=== PATIENT | male | born 1925 | race African-American/Black ===

== ENCOUNTER 2016-07-23 02:21 | Inpatient (IN) | payer OTHER, MEDICARE ==
[~2016-07-23] VITALS: Ht 167.6 cm; Wt 74.8 kg
[~2016-07-23 02:21] MED LIST: CARVEDILOL6.25 M1 PO; CILOSTAZOL100 M1 PO; COZAAR25 M1 PO; FLOMAX0.4 M1 PO; FOLIC ACID1 M1 PO; LANTUS100 UNIT/1 SC; MECLIZINE HCL12.5 M1 PO; METOCLOPRAMIDE10 M2 PO; ONGLYZA5 M1 PO
--- NOTE | 2016-07-23 14:30 | Admission Core Measures ---
Acute Coronary Syndrome Inclusion Criteria ACS Diagnosis No Inpatient Core Measures LDL Reminder: If No, please order W/I first 24hr of stay Congestive Heart Failure Inclusion Criteria CHF Diagnosis No Cerebrovascular accident Inclusion Criteria CVA/TIA Diagnosis No Inpatient Core Measures Bedside Swallow Eval Reminder: If BSE failed, place ST order Antithrombotic Reminder: Order Antithrombotic Medication by end of day 2 Antithrombotic Reminder: Document Reason Antithrombotic Not ordered by end of day 2 AFIB/Flutter Reminder: If Present, add to problem list AFIB/Flutter Reminder: Order Anticoag Medication for pts with AFIB/Flutter Atherosclerosis Reminder: If Present, add to problem list LDL Reminder: If No, please order W/I first 24hr of stay PT Order Reminder: If No, please order Venous thromboembolism Inpatient Core Measures VTE Risk Factors: Age > 40, Surgery No Mech VTE prophylaxis d/t No contraindications No VTE Pharm Prophylaxis d/t No contraindications Inclusion Criteria - Per Current guidelines, there needs to be overlap - treatment for the first 5 days of Warfarin therapy. - Parenteral Anticoagulation (IV or SC) needs to be - given along with Warfarin therapy. VTE Diagnosis No VTE Type NONE VTE Confirmed by (Test) NONE Problem List As ranked by this Provider includes Assessment & Plan 1. S/P inguinal hernia repair HOME MEDS Home Med List Carvedilol 6.25 MG TABLET 1 TAB PO BID HEART/BP (Reported) Cilostazol 100 MG TABLET 1 TAB PO BID UNKNOWN (Reported) Folic Acid 1 MG TABLET 1 TAB PO DAILY SUPPLEMENT (Reported) Insulin-Lantus (Lantus) 100 UNIT/ML VIAL 20 UNITS SC DAILY DM (Reported) Losartan Potassium (Cozaar) 25 MG TABLET 1 TAB PO DAILY BP (Reported) Meclizine HCl 12.5 MG TABLET 1 TAB PO TID N/V/DIZZINESS (Reported) Metoclopramide HCl 10 MG TABLET 20 MG PO BID GI (Reported) Saxagliptin (Onglyza) 5 MG TABLET 1 TAB PO DAILY DM (Reported) Tamsulosin HCl (Flomax) 0.4 MG CAP.ER.24H 1 CAP PO DAILY (Reported)
--- NOTE | 2016-07-23 16:51 | PN- General Surgery ---
Subjective Subjective: Post Op Note s/p open repair of left inguinal hernia Patient has mild to moderate pain but tolerable. No further c/o. Denies n/v. Has not been OOB. Rinaldi catheter in place. Denies CP/SOB. Objective Vital Signs and I&Os BP: 155/90 HR: 90 O2: 99% 2L NC RR: 20 Afebrile Physical Exam: General: NAD, comfortable, A&Ox3 Chest: CTAB. RRR. Abdomen/Groin: soft, nondistended. Appropriately TTP. +Bowel sounds x4 quadrants. LLQ dressing c/d/i. left side of scrotum with kong drain in place and dressing saturating through with serosanguineous drainage. Rinaldi catheter in place. Ext: No calve swelling/TTP, neurovascularly intact bilateral lower extremities Current Medications: Current Medications Sig/Fatemeh Start time Last Medication Dose Route Stop Time Status Admin Acetaminophen 1,000 MG .STK-MED ONE 07/23 709 DC IV 07/23 710 Fentanyl Citrate 100 MCG .STK-MED ONE 07/23 709 DC IM 07/23 710 Fentanyl Citrate 100 MCG .STK-MED ONE 07/23 708 DC IM 07/23 709 Ketorolac 30 MG .STK-MED ONE 07/23 708 DC Tromethamine IM 07/23 709 Ondansetron HCl 4 MG .STK-MED ONE 07/23 709 DC IM 07/23 710 Assessment/Plan Assessment/Plan 89yo M POD#0 s/p open left inguinal hernia repair. AVSS, patient stable. - Pain control - I/O's - PRN zofran - IVF - Insulin sliding scale - Clear liquid diet tonight - DC rinaldi catheter now, DTV within 8 hrs. - sc heparin and ALPS for DVT PPx - OOB as desired with assist on first attempt - CBC, BEP in a.m. Core Measures/Miscellaneous Venous Thromboembolism VTE Risk Factors: Age > 40, Surgery VTE Contraindications: No Contraindications VTE Diagnosis: No VTE Type: NONE VTE Confirmed by (Test): NONE Beta Maciej Is Beta Maciej a Home Med? Yes Antibiotics Is Patient on Antibiotics? Yes If Yes: prophylaxis
[2016-07-23 18:19] VITALS: BP 150/98
[2016-07-23 21:34] VITALS: BP 150/98
--- NOTE | 2016-07-23 22:08 | NUR ---
1700: PATIENT ARRIVED TO FLOOR. DAUGHTER AT BEDSIDE. PATIENT RESTING COMFORTABLY. PAIN 7/10. MORPHINE 2 MG IV GIVEN WHICH NELSON PAIN DOWN TO 3/10. DRSNG DRAINING MODERATE BLOOD WHICH WAS ANITICAPATED PER SURGERY. DSNG REINFORCED WITH GAUZE. VSS 2200: PATIENT RESTING COMFORTABLY. PT TACHYCARDIC: HR:117. BP: 150/98, TEMP: 98.8. SCHEDULED COREG GIVEN. PATIENT STATES PAIN IS ONLY 3/10. KAILASH ESTEVES NOTIFIED OF HEARTRATE. WILL RECHECK IN ONE HOUR.
--- NOTE | 2016-07-23 22:49 | NUR ---
2249: HEARTRATE RECHECKED. PATIENT STILL TACHY WITH HEARTRATE OF 123 BPM. SURGICAL PA DANIELITO NOTIFIED. DANIELITO STATES HE WILL GIVE THE PATIENT A BOLUS OF 500 MLS OF NORMAL SALINE. DUE TO CHANGE OF SHIFT, REPORT WILL BE GIVEN TO THE NEXT NURSE COMING ON.
[2016-07-23 23:20] VITALS: BP 122/80
--- NOTE | 2016-07-24 01:35 | NUR ---
PT VOIDING IN URINAL; DARK RED URINE WITH FEW CLOTS; DEVIN ESTEVES AWARE, CAN BE FROM TRAMATIC ORTEGA INSERTION. WILL MONITOR
[2016-07-24 02:00] VITALS: BP 122/78
[2016-07-24 06:00] VITALS: BP 136/78
--- NOTE | 2016-07-24 08:01 | PN- General Surgery ---
See Addendum Subjective Subjective: Hematuria overnight, voiding small amounts at a time of bloody urine with clots. He is tolerating clears. No nausea. Some shortness of breath when standing for dressing change. Denies chest pains. Not passing flatus at this time. Objective Vital Signs and I&Os Vital Signs Date Time Temp Pulse Resp B/P Pulse O2 O2 Flow FiO2 Ox Delivery Rate 07/24 599 98.8 111 18 136/78 96 Nasal Cannula 07/24 0200 98.9 110 20 122/78 96 Nasal Cannula 07/24 0049 117 07/24 0000 Nasal 2.0L Cannula 07/23 2320 99.0 123 18 122/80 97 Room Air 07/23 2253 123 07/23 2200 Nasal 2.0L Cannula 07/23 2200 98 Nasal 2.0L Cannula 07/23 2140 117 150/98 07/23 2140 117 150/98 07/23 2134 98.8 117 18 150/98 96 Nasal 2.0L Cannula 07/23 1819 98.0 89 16 150/98 99 Nasal Cannula Intake & Output 07/24 0800 07/24 0000 07/23 1600 07/23 0800 07/23 0000 07/22 1600 Intake Total 600 875 Output Total 700 100 Balance -100 775 Intake, IV 600 450 Intake, Oral 425 Number 0 Bowel Movements Output, Urine 700 100 Patient 165 lb Weight Physical Exam: General - alert & oriented. comfortable. no acute distress. Lungs - decreased breath sounds b/l bases. clear Cardiac - s1s2. tachycardic 110s. Abdomen - softly distended. no bowel sounds appreciated. expected left groin tenderness. - voiding bloody urine with clots. scrotal dressing changed. kong in place. Extremities - warm bilaterally. calves nontender. Assessment/Plan Assessment/Plan This 89 year old male with multiple medical problems including htn, stage 3 ckd, dm, gerd, bph, vertigo, is POD#1 s/p open left inguinal hernia repair with mesh, with hematuria overnight s/p rinaldi removal, tachycardia, and dyspnea this morning tolerating clears. d/c iv fluids. consider advancing diet check cxr and ekg f/u labs hold hep sc for now given hematuria with clots called urology consult to assess hematuria with clots called hospitalist / Hailee for consults dressing changed will d/w Core Measures/Miscellaneous Venous Thromboembolism VTE Risk Factors: Age > 40, Surgery VTE Contraindications: No Contraindications VTE Diagnosis: No VTE Type: NONE VTE Confirmed by (Test): NONE Beta Maciej Is Beta Maciej a Home Med? Yes Antibiotics Is Patient on Antibiotics? Yes If Yes: prophylaxis
--- NOTE | 2016-07-24 08:01 | Cons- Medical ---
ZA NARAYANAN 07/24/16 0758: General Information and HPI Consulting Request Date of Consult: 07/24/16 Requested By: REGINALD US,OMID Whitt Reason for Consult: Hypoxia, tachycardia Source of Information: patient, family Exam Limitations: no limitations History of Present Illness: 89-year-old male with a past medical history of hypertension, GERD, insulin- dependent diabetes mellitus, peripheral vascular disease, CKD Stage III 2/2 diabetes?, BPH who was admitted to [facility] on 07/23/2016 for an elective open repair of the left inguinal hernia. Patient denies any chest pain/discomfort, but endorses "feeling winded". Admits to non-productive cough, but denies fever, chills, any history of sick contact, sore throat, nausea, vomitinig. He denies any swelling in his lower extremities. He works at [employer], and F/U with Dr. Stephen for high blood pressure. According to the patient's significant other, he recently underwent pre-op eval with his behavioral psychologist which included in a stress test which is reportedly normal. He also endorses a sour taste as well as orthopnea. Of note, patient is pretty much independent in his ADLs and IADLs. Travel history revealed that he last traveled from [place] back in August 2015. Vitals at the time of admission blood pressure 150/98, respiratory rate 16, pulse 89, afebrile saturating 99% on room air. Postoperatively patient was tachycardiac to the 1 teens and hypoxic and was placed on 2 L of oxygen via nasal cannula. Of note he also had episode of heamturia which is attributable to trauma from Buitrago catheter palcement. He continues to remain tachycardic and hypoxic and medicine consult was obtained to further evaluate his hypoxemia as well as tachycardia. Chest x-ray done this morning shows low lung volumes, by basilar linear opacities most suggestive of subsegmental atelectasis with blunting of the right costophrenic angle suggestive of scarring versus a tiny amount of pleural fluid. There is no evidence of focal consolidation. EKG reveals sinus tachycardia with HR: 112, ? LAD, non-speci\\fic ST-T changes in lateral leads. Labs froom this AM, pertinent for stabel H&H of 10.8/32.2, thrombocytopenia with platelet count of 108,000, and a normal WBC count of 6900. Serum chemistries pertinent for sodium of 141, potassium of 4.3, hypercholesteremia with a chloride level of 118, bicarbonate of 19, BUN 23 and a creatinine of 2.0. Serum magnesium is low to 1.4 and troponin is negative is less than 0.01. Allergies/Medications Allergies: Coded Allergies: No Known Allergies (07/19/16) Home Med List: Carvedilol 6.25 MG TABLET 1 TAB PO BID HEART/BP (Reported) Cilostazol 100 MG TABLET 1 TAB PO BID UNKNOWN (Reported) Folic Acid 1 MG TABLET 1 TAB PO DAILY SUPPLEMENT (Reported) Insulin-Lantus (Lantus) 100 UNIT/ML VIAL 20 UNITS SC DAILY DM (Reported) Losartan Potassium (Cozaar) 25 MG TABLET 1 TAB PO DAILY BP (Reported) Meclizine HCl 12.5 MG TABLET 1 TAB PO TID N/V/DIZZINESS (Reported) Metoclopramide HCl 10 MG TABLET 20 MG PO BID GI (Reported) Saxagliptin (Onglyza) 5 MG TABLET 1 TAB PO DAILY DM (Reported) Tamsulosin HCl (Flomax) 0.4 MG CAP.ER.24H 1 CAP PO DAILY (Reported) Current Medications: Current Medications Sig/Fatemeh Start time Last Medication Dose Route Stop Time Status Admin Benzocaine/Menthol 1 RHETT Q2-3 HRS NEEDED.. 07/24 0745 AC PO Carvedilol 6.25 MG BID 07/23 2200 AC 07/23 PO 2140 Cefazolin Sodium 1,000 MG IQ8 07/23 1600 DC 07/24 IV 07/24 0001 0023 Cilostazol 100 MG BID 07/23 2200 AC 07/23 PO 2142 Heparin Sodium 5,000 UNIT Q8 07/23 2200 DC 07/24 (Porcine) SC 0604 Hydromorphone HCl 2 MG .STK-MED ONE 07/23 1547 DC IM 07/23 1548 Hydromorphone HCl 2 MG .STK-MED ONE 07/23 1531 DC IM 07/23 1532 Insulin Aspart 1 UNITS .STK-MED ONE 07/23 1911 DC SC 07/23 1912 Insulin Human Regular 0 TIDAC/HS 07/23 1700 AC 07/23 SC 1918 Losartan Potassium 25 MG DAILY 07/24 1000 AC PO Meclizine HCl 12.5 MG TID 07/23 1600 AC 07/23 PO 2141 Metoclopramide HCl 20 MG BID 07/23 2200 AC 07/23 PO 2140 Morphine Sulfate 2 MG Q3P PRN 07/23 1730 AC 07/23 IV 1810 Oxycodone/ 1 TAB Q4P PRN 07/23 1730 AC 07/24 Acetaminophen PO 0638 Oxycodone/ 2 TAB Q4P PRN 07/23 1730 AC Acetaminophen PO Sodium Chloride 500 ML BOLUS ONE 07/23 2300 DC 07/23 IV 07/23 2359 2304 Sodium Chloride 1,000 ML Q13H 07/23 1730 DC 07/23 IV 1919 Tamsulosin HCl 0.4 MG DAILY 07/23 1445 AC 07/23 PO 2140 Review of Systems Review of Systems Constitutional: Denies: chills, fever, malaise, weakness. EENTM: Denies: visual changes. Cardiovascular: Reports: orthopena. Denies: chest pain, edema, palpitations, syncope. Respiratory: Reports: cough, orthopnea, short of breath. Denies: hemoptysis, sputum production, stridor, wheezing. GI: Reports: abdominal pain, constipation, distention. Denies: nausea, vomiting. Genitourinary: Reports: hematuria. Musculoskeletal: Reports: no symptoms. Neurological/Psychological: Denies: headache, numbness, tingling, tremors, unable to move lower ext, unable to move upper ext, weakness. 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 Home Who Do You Live With? significant other Primary Language: [place] Smoking Status: Never Smoked ETOH Use: denies use Illicit Drug Use: denies illicit drug use Functional Ability ADLs Independent: dressing, eating, toileting, bathing. Ambulation: independent IADLs Independent: shopping, housework, finances, food prep, telephone, transportation , medication admin. Exam & Diagnostic Data Last 24 Hrs of Vital Signs/I&O Vital Signs Date Time Temp Pulse Resp B/P Pulse O2 O2 Flow FiO2 Ox Delivery Rate 07/24 599 98.8 111 18 136/78 96 Nasal Cannula 07/24 0200 98.9 110 20 122/78 96 Nasal Cannula 07/24 0049 117 03/ 0000 Nasal 2.0L Cannula 07/23 2320 99.0 123 18 122/80 97 Room Air 07/23 2253 123 07/23 2200 Nasal 2.0L Cannula 07/23 2200 98 Nasal 2.0L Cannula 07/23 2140 117 150/98 07/23 2140 117 150/98 07/23 2134 98.8 117 18 150/98 96 Nasal 2.0L Cannula 07/23 1819 98.0 89 16 150/98 99 Nasal Cannula Intake & Output 07/24 1600 08 0800 03/ 0000 Intake Total 600 875 Output Total 700 100 Balance -100 775 Intake, IV 600 450 Intake, Oral 425 Number 0 Bowel Movements Output, Urine 700 100 Patient 165 lb Weight Physical Exam General Appearance: well developed/nourished, no apparent distress, alert, awake , lethargic Head: atraumatic, normal appearance Eyes: Bilateral: PERRL, EOMI. Ears, Nose, Throat: dry mucous membranes Neck: normal inspection, supple, JVD ~ 5 CM Respiratory: normal breath sounds, chest non-tender, no respiratory distress, quiet respiration, lungs clear, no crackles, rales, ronchi Cardiovascular: tachycardia, normal S1, S2, no murmers, rubs, gallops Gastrointestinal: soft, distention, tenderness, has hypoactive bowel sounds Extremities: normal inspection, no edema, no calf tenderness, chronic venous stasis changes Neurologic/Psych: no motor/sensory deficits, awake, alert, oriented x 3, normal mood/affect Cranial Nerves: normal speech, PERRL, hard of hearing Last 24 Hrs of Labs/Bret: Laboratory Tests 07/24/16 0640: Sodium Pending, Potassium Pending, Chloride Pending, Carbon Dioxide Pending, Anion Gap Pending, BUN Pending, Creatinine Pending, BUN/Creatinine Ratio Pending , Magnesium Pending, Troponin I Pending, CBC w Diff Pending, WBC Pending, RBC Pending, Hgb Pending, Hct Pending, MCV Pending, MCH Pending, RDW Pending, Plt Count Pending, MPV Pending, PUBS MCHC Pending Assessment/Plan Assessment/Plan 89-year-old male with a past medical history of hypertension, GERD, insulin- dependent diabetes mellitus, peripheral vascular disease, CKD Stage III 2/2 diabetes?, BPH who was admitted to [facility] on 07/23/2016 and underwent an elective open repair of the left inguinal hernia, currently postoperative day #1 is tachycardic and hypoxemic. Recommendations #Acute hypoxemic respiratory failure Differentials at this point include dehydration (highly likely, as patient seems very dry on physical exam) versus acute coronary syndrome (given he is diabetic, may not present with classic chest pain like symptoms, however, it may be unlikely given he reporterdly had a normal stress test) versus pulmonary embolism (highly unlikely) versus secondary to atelectasis given he recently underwent surgery and is in pain not being able to take deep breaths. Was encouraged incentive spirometry Motrin troponin and EKG With add-on for a BNP With hydrate him with IV fluids half-normal saline running at 75 MLS per hour. We'll consider obtaining records from his primary behavioral psychologist as far as echocardiogram and stress test # Sinus tachycardia Most likely 2/2 dehydration versus pulmonary embolism versus pain Will hydrate with IV fluids and follow-up Continue on carvedilol 6.25 BID PO milligrams twice a day Optimize pain control Hypertension Continue on Cozaar 25 mg daily, carvedilol 6.25 mg twice a day Insulin-dependent diabetes mellitus Fingersticks stable with FSG 179, 179, 165, 207 Continue on Novolin sliding scale for now GERD Would start him on Protonix CKD stage III Most likely secondary to type 2 diabetes Currently stable Hematuria Most likely secondary to trauma from Buitrago catheter placement Consider urology input BPH Continue on tamsulosin Plan of care discussed with Dr. Gibson Consult Acknowledgment - Thank you for your consult request. COOKIE US,SAUL 07/24/16 1623: Assessment/Plan Consult Acknowledgment - Thank you for your consult request. Attending Review Statement Attending Statement Attending MD Statement: examined this patient, discuss w/resident/PA/BOILING OFF WINDER, agreed w/resident/PA/BOILING OFF WINDER, reviewed EMR data (avail), discussed with Omid Kauffman MD Attending Assessment/Plan: Patient seen and examined. Plan of care discussed with the medical team and the patient. Available lab work and radiology test reports were reviewed. In summary this is a 89-year-old male with a past medical history of hypertension, GERD, insulin-dependent diabetes mellitus, peripheral vascular disease, CKD Stage III 2/2 diabetes?, BPH who was admitted to [facility] on 07/23/2016 for an elective open repair of the left inguinal hernia. Patient may found to be tachycardic and slightly short of breath in the postoperative period. No recent fevers have been noted. Patient currently not on oxygen but is persistently tachycardic in rate of 113-123. His exam shows slightly elevated JVD and a few crackles on the chest. No papilledema is noted., Magnesium 1.4 and chloride of 115. Chest x-ray did not show any acute bony edema. EKG shows sinus tachycardia. Assessment plan * Sinus tachycardia- first troponin is negative, other differential could include pulmonary embolism however this is too soon after postoperative. To develop pulmonary embolism. [place] should be ruled out for further troponins. Possible dehydration. Other differential could include pain. * Shorts of breath- patient currently not hypoxic on the exam shows slight elevation in JVD no clear pulmonary edema is noted on chest x-ray. * Left: Hernia repair * Chronic renal failure Plan * Check BNP level * The start IV fluids with D5W half normal saline * Continue Cozaar and carvedilol * Check 2 more troponin sets * Cardio consult has been requested by surgery with Dr. Stephen. Please inform Dr. Stephen. * Control pain adequately * I do not see any DVT prophylaxis. Given patient's Miriam he will benefit from pharmacological prophylaxis. * Recheck BEP tomorrow
--- NOTE | 2016-07-24 08:02 | RADIOLOGY REPORT ---
EXAMINATION: XR PORTABLE CHEST CLINICAL INFORMATION: Atelectasis. Hypoxia. Shortness of breath. COMPARISON: None TECHNIQUE: Portable AP view of the chest was obtained. FINDINGS: Low lung volumes. Bibasilar linear opacities most suggestive of subsegmental atelectasis. Blunting of the right costophrenic angle likely represents scarring versus a tiny amount of pleural fluid. Cardiac evaluation is limited given low lung volumes. IMPRESSION: Low lung volumes. No focal consolidation.
[2016-07-24 08:07] LABS: ABSOLUTE BASOPHIL COUNT 0 /CUMM (0.0-0.2); ABSOLUTE EOSINOPHIL COUNT 0.1 /CUMM (0.0-0.7); ABSOLUTE GRANULOCYTE CT 4.7 /CUMM (1.4-6.5); ABSOLUTE LYMPH COUNT 1.2 /CUMM (1.2-3.4); ABSOLUTE MONOCYTE COUNT 0.8 /CUMM (0.10-0.60); BASOPHIL % 0.3 % (0.0-2.0); EOSINOPHIL % 1.8 % (0-5); GRANULOCYTE % 67.9 % (42.2-75.2); HEMATOCRIT 32.2 % (42-52); MEAN CORPUSCULAR HGB 31.6 PG (27.0-31.0); MEAN CORPUSCULAR HGB CONC 33.5 G/DL (33.0-37.0); MEAN CORPUSCULAR VOLUME 94.1 FL (80.0-94.0); MEAN PLATELET VOLUME 9.1 FL (7.4-10.4); PLATELET COUNT 108 /CUMM (130-400); RED BLOOD CELL CT 3.42 /CUMM (4.70-6.10); WHITE BLOOD CELL COUNT 6.9 /CUMM (4.8-10.8)
--- NOTE | 2016-07-24 09:00 | RADIOLOGY REPORT ---
EXAMINATION: XR ABDOMEN MULTIPLE VIEWS CLINICAL INDICATION: Abdominal distention nausea COMPARISON: Renal ultrasound May 2016. Chest x-ray performed same day TECHNIQUE: Supine and upright views of the abdomen FINDINGS: There is no evidence of free air or obstruction. No abnormal calcifications are seen Prominent spondylosis of the lumbar sacral spine manifested by degenerative disc changes and facet arthrosis of. IMPRESSION: No acute abnormality.
--- NOTE | 2016-07-24 10:17 | Cons- Cardiology ---
See Addendum BECKI MILLER MD 07/24/16 1016: General Information and HPI Consulting Request Date of Consult: 07/24/16 Requested By: REGINALD US,OMID Whitt Reason for Consult: POST-OP TACHYCARDIA Source of Information: patient, old records Exam Limitations: no limitations History of Present Illness: This is an 89-year-old gentleman with a history of hypertension, peripheral vascular disease, diabetes mellitus, stage III chronic kidney disease that was admitted yesterday for an elective left open inguinal hernia repair. He had some adhesions also in the scrotum secondary to which the procedure was prolonged to over 5 hours. This morning a cardiology evaluation was requested by the surgical team secondary to persistent tachycardia. At the time of evaluation patient is resting in his hospital bed; this complain of abdominal pain. He remains chest pain-free, denies any shortness of breath though he is on supplemental oxygen, his only other complaint is that he is having chirag hematuria. Allergies/Medications Allergies: Coded Allergies: No Known Allergies (07/19/16) Home Med List: Carvedilol 6.25 MG TABLET 1 TAB PO BID HEART/BP (Reported) Cilostazol 100 MG TABLET 1 TAB PO BID UNKNOWN (Reported) Folic Acid 1 MG TABLET 1 TAB PO DAILY SUPPLEMENT (Reported) Insulin-Lantus (Lantus) 100 UNIT/ML VIAL 20 UNITS SC DAILY DM (Reported) Losartan Potassium (Cozaar) 25 MG TABLET 1 TAB PO DAILY BP (Reported) Meclizine HCl 12.5 MG TABLET 1 TAB PO TID N/V/DIZZINESS (Reported) Metoclopramide HCl 10 MG TABLET 20 MG PO BID GI (Reported) Saxagliptin (Onglyza) 5 MG TABLET 1 TAB PO DAILY DM (Reported) Tamsulosin HCl (Flomax) 0.4 MG CAP.ER.24H 1 CAP PO DAILY (Reported) Review of Systems Review of Systems Constitutional: Reports: see HPI. 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 Home Who Do You Live With? significant other Primary Language: Citizen Of [place] Smoking Status: Never Smoked ETOH Use: denies use Illicit Drug Use: denies illicit drug use Functional Ability ADLs Independent: dressing, eating, toileting, bathing. Ambulation: independent IADLs Independent: shopping, housework, finances, food prep, telephone, transportation , medication admin. Exam & Diagnostic Data Vital Signs and I&O Vital Signs Date Time Temp Pulse Resp B/P Pulse O2 O2 Flow FiO2 Ox Delivery Rate 07/24 599 98.8 111 18 136/78 96 Nasal Cannula 07/24 0200 98.9 110 20 122/78 96 Nasal Cannula 07/24 0049 117 07/24 0000 Nasal 2.0L Cannula 07/23 2320 99.0 123 18 122/80 97 Room Air 07/23 2253 123 07/23 2200 Nasal 2.0L Cannula 07/23 2200 98 Nasal 2.0L Cannula 07/23 2140 117 150/98 07/23 2140 117 150/98 07/23 2134 98.8 117 18 150/98 96 Nasal 2.0L Cannula 07/23 1819 98.0 89 16 150/98 99 Nasal Cannula Intake & Output 07/24 1600 07/24 0800 / 0000 07/23 1600 07/23 0800 07/23 0000 Intake Total 600 875 Output Total 700 100 Balance -100 775 Intake, IV 600 450 Intake, Oral 425 Number 0 Bowel Movements Output, Urine 700 100 Patient 165 lb Weight Physical Exam General Appearance: well developed/nourished, no apparent distress Head: atraumatic, normal appearance Eyes: Bilateral: normal appearance, PERRL, EOMI. Ears, Nose, Throat: dry mucous membranes Respiratory: normal breath sounds, chest non-tender Cardiovascular: regular rate/rhythm, tachycardia Gastrointestinal: soft, non-tender, dry sterile dresing to lower abdomen, enio drain in place Extremities: normal inspection, normal capillary refill Labs/Bret Results: Laboratory Tests 07/25 639 Chemistry Sodium (137 - 145 mmol/L) 141 Potassium (3.5 - 5.1 mmol/L) 4.3 Chloride (98 - 107 mmol/L) 115 H Carbon Dioxide (22 - 30 mmol/L) 19 L Anion Gap (5 - 16) 7 BUN (9 - 20 mg/dL) 23 H Creatinine (0.7 - 1.2 mg/dL) 2.0 H Estimated GFR (>60 ml/min) 32 L BUN/Creatinine Ratio (7 - 25 %) 11.5 Magnesium (1.6 - 2.3 mg/dL) 1.4 L Troponin I (<0.11 ng/ml) 0.01 Hematology CBC w Diff NO MAN DIFF REQ WBC (4.8 - 10.8 /CUMM) 6.9 RBC (4.70 - 6.10 /CUMM) 3.42 L Hgb (14.0 - 18.0 G/DL) 10.8 L Hct (42 - 52 %) 32.2 L MCV (80.0 - 94.0 FL) 94.1 H MCH (27.0 - 31.0 PG) 31.6 H RDW (11.5 - 14.5 %) 14.0 Plt Count (130 - 400 /CUMM) 108 L MPV (7.4 - 10.4 FL) 9.1 Gran % (42.2 - 75.2 %) 67.9 Lymphocytes % (20.5 - 51.1 %) 17.7 L Monocytes % (1.7 - 9.3 %) 12.3 H Eosinophils % (0 - 5 %) 1.8 Basophils % (0.0 - 2.0 %) 0.3 Absolute Granulocytes (1.4 - 6.5 /CUMM) 4.7 Absolute Lymphocytes (1.2 - 3.4 /CUMM) 1.2 Absolute Monocytes (0.10 - 0.60 /CUMM) 0.8 H Absolute Eosinophils (0.0 - 0.7 /CUMM) 0.1 Absolute Basophils (0.0 - 0.2 /CUMM) 0 PUBS MCHC (33.0 - 37.0 G/DL) 33.5 Diagnostic Data EKG Results Rate 112, VA 152, QRS 96, QTC 470 Left axis deviation CXR Results PATIENT: NICKIE HAWKINS PRESENT AGE: 89 PATIENT ACCOUNT NO: [id number] : [birth year] LOCATION: [facility] ORDERING PHYSICIAN: KATHRYN BELTRAN SERVICE DATE: 07/24/16 EXAM TYPE: RAD - XRY-PORTABLE CHEST XRAY EXAMINATION: XR PORTABLE CHEST CLINICAL INFORMATION: Atelectasis. Hypoxia. Shortness of breath. COMPARISON: None TECHNIQUE: Portable AP view of the chest was obtained. FINDINGS: Low lung volumes. Bibasilar linear opacities most suggestive of subsegmental atelectasis. Blunting of the right costophrenic angle likely represents scarring versus a tiny amount of pleural fluid. Cardiac evaluation is limited given low lung volumes. IMPRESSION: Low lung volumes. No focal consolidation. DICTATED BY: ABRIL SANON MD DATE/TIME DICTATED:07/24/16755 VISUAL DISPLAY ASSOCIATE:FRANK DATE/TIME TRANSCRIBED:07/24/16755 CONFIDENTIAL, DO NOT COPY WITHOUT APPROPRIATE AUTHORIZATION. <Electronically signed in Other Vendor System> SIGNED BY: ABRIL SANON MD 07/24/16801 Other Results PATIENT: NICKIE HAWKINS PRESENT AGE: 89 PATIENT ACCOUNT NO: [id number] : [birth year] LOCATION: [facility] ORDERING PHYSICIAN: KATHRYN BELTRAN SERVICE DATE: 07/24/16 EXAM TYPE: RAD - [id number] VIEWS EXAMINATION: XR ABDOMEN MULTIPLE VIEWS CLINICAL INDICATION: Abdominal distention nausea COMPARISON: Renal ultrasound May 2016. Chest x-ray performed same day TECHNIQUE: Supine and upright views of the abdomen FINDINGS: There is no evidence of free air or obstruction. No abnormal calcifications are seen Prominent spondylosis of the lumbar sacral spine manifested by degenerative disc changes and facet arthrosis of. IMPRESSION: No acute abnormality. DICTATED BY: NICKIE YBARRA MD DATE/TIME DICTATED:07/24/16854 VISUAL DISPLAY ASSOCIATE:FRANK DATE/TIME TRANSCRIBED:07/24/16854 CONFIDENTIAL, DO NOT COPY WITHOUT APPROPRIATE AUTHORIZATION. <Electronically signed in Other Vendor System> SIGNED BY: NICKIE YBARRA MD 07/24 0900 Assessment/Plan Assessment/Plan Assessment- 1. Persistent postoperative tachycardia; the etiology remains unclear could be dehydration versus intraoperative volume loss versus blood loss secondary to hematuria and drainage from Enio drain 2. Postop day 1 status post left open inguinal hernia repair 3. History of chronic kidney disease, creatinine 2.0 at present which is his baseline 4. Gross hematuria; likely secondary to [place] trauma 5. History of hypertension 6. History of diabetes Plan- 1. Check orthostatic 2. His first set of troponin and EKG has been negative; would not recommend any further given recent normal nuclear stress test 3. IV fluids as recommended by the medicine team 4. Provide adequate analgesia 5. Urology consultation to evaluate hematuria; potential need for CBI versus cystoscopy 6. Would continue his losartan, meclizine and Coreg at present doses; will try not to mask tachycardia with a higher dose of a beta sabina 7. If he continues to be persistently hypoxic he might need a V/Q scan; given his CKD he is not a candidate for CT angiogram 8. Replete electrolytes to keep potassium greater than 4, magnesium greater than 2 Problem List: 1. S/P inguinal hernia repair Copies To: Vidhya TAM MD Consult Acknowledgment - Thank you for your consult request. NICKIE TAM MD 07/24/164: Assessment/Plan Assessment/Plan Attending Addendum: The patient was seen and examined by myself and the case was discussed with the housestaff. I agree with the plan as outlined above. Consult Acknowledgment - Thank you for your consult request.
[2016-07-24 10:25] VITALS: BP 144/88
--- NOTE | 2016-07-24 13:59 | NUR ---
13:00- SURG PA BETH LANTIGUA NOTIFIED PT CONTINUES TO HAVE DARK HEMATURIA. UROLOGIST HAS NOT COME TO SEE PT OF YET. SURG PA TO CALL UROLOGIST AGAIN TO FIND OUT WHEN PT WILL BE SEEN.
[2016-07-24 15:09] VITALS: BP 120/80
--- NOTE | 2016-07-24 18:04 | NUR ---
8430- SURG DEVIN CAMPOS CONTACTED DR THOMPSON'S OFFICE AGAIN REGARDING CONSULT. PT REMAINS TACHY AT HR 120. URINE IS APPLIED BIOLOGY PROFESSOR IN COLOR, CLEAR RED, NO LONGER DARK RED. PER SURG PA, SHE IS AWARE OF VS. PT VOIDING ADEQUATE AMOUNT. WILL CONTINUE TO MONITOR.
--- NOTE | 2016-07-24 18:09 | NUR ---
LATE ENTRY FOR 0745- POST VOID RESIDUAL: LESS THAN 200 ML.
--- NOTE | 2016-07-24 18:16 | NUR ---
1814- DR THOMPSON ASSESSED PT. URINE IS CLEARING UP, BUT REMAINS CLEAR RED. PER DR. THOMPSON, CONTINUE TO MONITOR OVERNIGHT. IF HEMATURIA PERSISTS IN THE MORNING, PT WILL HAVE A CYSTOSCOPY WITH DR. THOMPSON.
--- NOTE | 2016-07-24 18:36 | Cons- Urology ---
General Information and HPI Consulting Request Date of Consult: 07/24/16 Requested By: REGINALD US,OMID Whitt Reason for Consult: GROSS HEMATURIA Source of Information: patient, family, old records Exam Limitations: poor historian History of Present Illness: 89 YR OLD POST COMPLEX LIH WITH MESH. POST OP OVERNIGHT WITH GROSS HEMATUIRA/ CLOTS. NO PRIOR HX HEMATURIA/UTI. VOIDING WELL AND URINE SEEMS TO BE CLEARER. Allergies/Medications Allergies: Coded Allergies: No Known Allergies (07/19/16) Home Med List: Carvedilol 6.25 MG TABLET 1 TAB PO BID HEART/BP (Reported) Cilostazol 100 MG TABLET 1 TAB PO BID UNKNOWN (Reported) Folic Acid 1 MG TABLET 1 TAB PO DAILY SUPPLEMENT (Reported) Insulin-Lantus (Lantus) 100 UNIT/ML VIAL 20 UNITS SC DAILY DM (Reported) Losartan Potassium (Cozaar) 25 MG TABLET 1 TAB PO DAILY BP (Reported) Meclizine HCl 12.5 MG TABLET 1 TAB PO TID N/V/DIZZINESS (Reported) Metoclopramide HCl 10 MG TABLET 20 MG PO BID GI (Reported) Saxagliptin (Onglyza) 5 MG TABLET 1 TAB PO DAILY DM (Reported) Tamsulosin HCl (Flomax) 0.4 MG CAP.ER.24H 1 CAP PO DAILY (Reported) Current Medications: Current Medications Sig/Fatemeh Start time Last Medication Dose Route Stop Time Status Admin Benzocaine/Menthol 1 RHETT Q2-3 HRS NEEDED.. 07/24 0745 AC 07/24 PO 0950 Carvedilol 6.25 MG BID 07/23 2200 AC 07/24 PO 1046 Cefazolin Sodium 1,000 MG IQ8 07/23 1600 DC 07/24 IV 07/24 0001 0023 Cilostazol 100 MG BID 07/23 2200 AC 07/24 PO 1150 Dextrose/Sodium 1,000 ML CONTINOUS INFUSION 07/24 2326 AC 07/24 Chloride IV 1046 Heparin Sodium 5,000 UNIT Q8 07/23 2200 DC 07/24 (Porcine) SC 0604 Insulin Aspart 1 UNITS .STK-MED ONE 07/23 1911 DC SC 07/23 1912 Insulin Human Regular 0 TIDAC/HS 07/23 1700 AC 07/24 SC 1742 Losartan Potassium 25 MG DAILY 07/24 1000 AC 07/24 PO 1046 Magnesium Sulfate 1 GM Q2H 07/24 0915 DC 07/24 Dextrose/Water 100 ML IV 07/24 1314 1639 Meclizine HCl 12.5 MG TID 07/23 1600 AC 07/24 PO 1507 Metoclopramide HCl 20 MG BID 07/23 2200 AC 07/24 PO 1047 Morphine Sulfate 2 MG Q3P PRN 07/23 1730 AC 07/23 IV 1810 Oxycodone/ 1 TAB Q4P PRN 07/23 1730 AC 07/24 Acetaminophen PO 1507 Oxycodone/ 2 TAB Q4P PRN 07/23 1730 AC Acetaminophen PO Patient Medication 1 ED ONE ONE 07/24 1400 DC 07/24 Teaching ED 07/24 1401 1358 Sodium Chloride 500 ML BOLUS ONE 07/23 2300 DC 07/23 IV 07/23 2359 2304 Sodium Chloride 1,000 ML Q13H 07/23 1730 DC 07/23 IV 1919 Tamsulosin HCl 0.4 MG DAILY 07/23 1445 AC 07/24 PO 1046 Past History Medical History Blood Transfusion Hx: No EENT: cataracts Cardiovascular: hypertension Musculoskeletal: osteoarthritis Endocrine: diabetes 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 Home Who Do You Live With? significant other Primary Language: Togolese Smoking Status: Never Smoked ETOH Use: denies use Illicit Drug Use: denies illicit drug use Functional Ability ADLs Independent: dressing, eating, toileting, bathing. Ambulation: independent IADLs Independent: shopping, housework, finances, food prep, telephone, transportation , medication admin. Employment History Retired? yes Review of Systems Review of Systems Constitutional: Denies: no symptoms. EENTM: Reports: hearing changes. Cardiovascular: Denies: no symptoms. Respiratory: Denies: no symptoms. GI: Reports: bloating. Genitourinary: Reports: hematuria. Musculoskeletal: Denies: no symptoms. Exam & Diagnostic Data Vital Signs and I&O Vital Signs Date Time Temp Pulse Resp B/P Pulse O2 O2 Flow FiO2 Ox Delivery Rate 07/24 1509 99.2 120 22 120/80 92 07/24 1113 97 Nasal 1.0L Cannula 07/24 1046 113 150/110 07/24 1046 113 150/110 07/24 1046 113 150/110 07/24 1025 117 144/88 07/24 0800 96 Nasal 1.0L Cannula 07/24 0600 98.8 111 18 136/78 96 Nasal Cannula 07/24 0200 98.9 110 20 122/78 96 Nasal Cannula 07/24 0049 117 07/24 0000 Nasal 2.0L Cannula 07/23 2320 99.0 123 18 122/80 97 Room Air 07/23 2253 123 07/23 2200 Nasal 2.0L Cannula 07/23 2200 98 Nasal 2.0L Cannula 07/23 2140 117 150/98 07/23 2140 117 150/98 07/23 2134 98.8 117 18 150/98 96 Nasal 2.0L Cannula Intake & Output 07/24 1600 07/24 0807/24 0000 07/23 1600 07/23 0807/23 0000 Intake Total 1300 600 875 Output Total 600 700 100 Balance 700 -100 775 Intake, IV 600 600 450 Intake, Oral 700 425 Number 0 Bowel Movements Output, Urine 600 700 100 Patient 165 lb Weight Physical Exam General Appearance: well developed/nourished Head: atraumatic Neck: normal inspection Respiratory: normal breath sounds Cardiovascular: regular rate/rhythm Gastrointestinal: normal bowel sounds, soft Back: no vertebral tenderness Extremities: normal inspection Reproductive: Normal male genitalia Last 24 Hours of Labs: Laboratory Tests 07/24 0640 Chemistry Sodium (137 - 145 mmol/L) 141 Potassium (3.5 - 5.1 mmol/L) 4.3 Chloride (98 - 107 mmol/L) 115 H Carbon Dioxide (22 - 30 mmol/L) 19 L Anion Gap (5 - 16) 7 BUN (9 - 20 mg/dL) 23 H Creatinine (0.7 - 1.2 mg/dL) 2.0 H Estimated GFR (>60 ml/min) 32 L BUN/Creatinine Ratio (7 - 25 %) 11.5 Magnesium (1.6 - 2.3 mg/dL) 1.4 L Troponin I (<0.11 ng/ml) 0.01 Hematology CBC w Diff NO MAN DIFF REQ WBC (4.8 - 10.8 /CUMM) 6.9 RBC (4.70 - 6.10 /CUMM) 3.42 L Hgb (14.0 - 18.0 G/DL) 10.8 L Hct (42 - 52 %) 32.2 L MCV (80.0 - 94.0 FL) 94.1 H MCH (27.0 - 31.0 PG) 31.6 H RDW (11.5 - 14.5 %) 14.0 Plt Count (130 - 400 /CUMM) 108 L MPV (7.4 - 10.4 FL) 9.1 Gran % (42.2 - 75.2 %) 67.9 Lymphocytes % (20.5 - 51.1 %) 17.7 L Monocytes % (1.7 - 9.3 %) 12.3 H Eosinophils % (0 - 5 %) 1.8 Basophils % (0.0 - 2.0 %) 0.3 Absolute Granulocytes (1.4 - 6.5 /CUMM) 4.7 Absolute Lymphocytes (1.2 - 3.4 /CUMM) 1.2 Absolute Monocytes (0.10 - 0.60 /CUMM) 0.8 H Absolute Eosinophils (0.0 - 0.7 /CUMM) 0.1 Absolute Basophils (0.0 - 0.2 /CUMM) 0 PUBS MCHC (33.0 - 37.0 G/DL) 33.5 Imaging Results: PATIENT: NICKIE HAWKINS PRESENT AGE: 89 PATIENT ACCOUNT NO: [id number] : [birth year] LOCATION: [facility] ORDERING PHYSICIAN: KATHRYN BELTRAN SERVICE DATE: 07/24/16 EXAM TYPE: RAD - [id number] VIEWS EXAMINATION: XR ABDOMEN MULTIPLE VIEWS CLINICAL INDICATION: Abdominal distention nausea COMPARISON: Renal ultrasound May 2016. Chest x-ray performed same day TECHNIQUE: Supine and upright views of the abdomen FINDINGS: There is no evidence of free air or obstruction. No abnormal calcifications are seen Prominent spondylosis of the lumbar sacral spine manifested by degenerative disc changes and facet arthrosis of. IMPRESSION: No acute abnormality. Assessment/Plan Assessment/Plan GROSS HEMATURIA POST COMPLEX LIH REPAIR/IF HEMATURIA PERSISTS, WILL NEED CYSTOSCOPY TOMORROW AM; RENAL US RECOMMENDED. Copies To: SHAHIDA THOMPSON MD Consult Acknowledgment - Thank you for your consult request. Attending MD Review Statement Attending Statement Attending MD Statement: examined this patient, discussed w/nursing Attending Assessment/Plan: HEMATURIA: RECOMMEND RENAL US, URINE CYTOLOGY, AND IF HEMATURIA PERSISTS OVERNIGHT PT WILL NEED CYSTOSCOPY.
[2016-07-24 21:46] VITALS: BP 164/94
--- NOTE | 2016-07-24 22:39 | ULTRASOUND REPORT ---
EXAMINATION: US RETROPERITONEAL COMPLETE (RENAL) CLINICAL INFORMATION: Hematuria. COMPARISON: Renal ultrasound 06/03/2016. TECHNIQUE: Real-time imaging of the kidneys and bladder. FINDINGS: RIGHT KIDNEY: 8.2 x 4.7 x 5.1 cm (SAG x AP x TRV). The kidney is normal in size, contour, and echogenicity. Renal cortical thickness is normal. No calculi or solid parenchymal lesions. There is a 0.9 x 0.8 x 0.6 cm simple cyst within the upper pole of the right kidney. No hydronephrosis. LEFT KIDNEY: 1.4 x 4.9 x 4.7 cm (SAG x AP x TRV). The kidney is normal in size, contour, and echogenicity. Renal cortical thickness is normal. No calculi or focal parenchymal lesions. No hydronephrosis. BLADDER: Not visualized secondary to overlying bandage material from recent hernia repair. IMPRESSION: There is a simple renal cortical cyst within the upper pole of the right kidney. The bilateral kidneys otherwise appear unremarkable. The bladder is not visualized secondary to overlying bandage material from recent hernia repair.
[2016-07-24 22:47] LABS: ABSOLUTE BASOPHIL COUNT 0 /CUMM (0.0-0.2); ABSOLUTE EOSINOPHIL COUNT 0.1 /CUMM (0.0-0.7); ABSOLUTE GRANULOCYTE CT 6.8 /CUMM (1.4-6.5); ABSOLUTE LYMPH COUNT 0.9 /CUMM (1.2-3.4); ABSOLUTE MONOCYTE COUNT 1.3 /CUMM (0.10-0.60); BASOPHIL % 0.2 % (0.0-2.0); GRANULOCYTE % 74.6 % (42.2-75.2); HEMATOCRIT 31.3 % (42-52); MEAN CORPUSCULAR HGB 31.4 PG (27.0-31.0); MEAN CORPUSCULAR HGB CONC 33.3 G/DL (33.0-37.0); MEAN CORPUSCULAR VOLUME 94.3 FL (80.0-94.0); MEAN PLATELET VOLUME 8.5 FL (7.4-10.4); PLATELET COUNT 114 /CUMM (130-400); RBC DISTRIBUTION WIDTH 13.8 % (11.5-14.5); RED BLOOD CELL CT 3.32 /CUMM (4.70-6.10); WHITE BLOOD CELL COUNT 9.1 /CUMM (4.8-10.8)
--- NOTE | 2016-07-24 23:00 | RADIOLOGY REPORT ---
EXAMINATION: XR PORTABLE CHEST CLINICAL INFORMATION: Hypoxia and vomiting. COMPARISON: Chest x-ray 07/24/2016. 7:38 AM TECHNIQUE: Portable AP portable view of the chest was obtained. 10:42 PM FINDINGS: Lung volume low. Crowding of the bronchovascular markings at lung bases due to low inspiratory effort. No dense consolidation. No pulmonary vascular congestion or pleural effusion. Compared to the prior chest x-ray there has been no change IMPRESSION: Low inspiratory effort. No focal consolidation.
--- NOTE | 2016-07-24 23:18 | Event Note ---
Event Note Event Note: 5 by the nursing staff that the patient had vomited coffee-ground like emesis and is not tachycardic to 1 35 bpm which is increased from 1 11 bpm 2 hours ago.she also states the patient became hypoxic to 79% O2 sat at which time she placed the patient on 3 L of O2 and his O2 sat increased to 93%. Upon arrival the patient was awake alert and responsive denying chest pain palpitations, dizziness,he does however state that after he vomited he felt better. At the bedside was dark colored liquid without bright red blood. Cardiovascular: Tachycardia with irregular rate Lungs: Decreased breath sounds in bases however air in all lung diallo with inspiration and expiration Abdomen: Soft, with minimal tenderness, active bowel sounds Extremities: Warm, palpable DP pulses Assessment/increased tachycardia with coffee ground emesis Plan CBC, BEP, troponin, d-dimer Stat chest x-ray to rule out aspiration Stat EKG Continue with 10 PM cardiac meds MOD has been notified and is present evaluating patient who will manage the patient's cardiopulmonary status
[2016-07-25 05:58] VITALS: BP 100/60
--- NOTE | 2016-07-25 06:03 | Event Note ---
Event Note Event Note: call by nursing staff with scheduled fingerstick of <50 at bedside patient awake and responsive to cmmands denies cp, sob, no n+v vss cv: rrr lnugs: clear abd: soft ext: warm, cms intact plan amp D50 now cont ivf/npo for cystoscopy this am MOD notified
--- NOTE | 2016-07-25 07:32 | PN- Medicine Consult ---
See Addendum Assessment/Plan Assessment/Plan Assessment: 89-year-old male with a past medical history of hypertension, GERD, insulin- dependent diabetes mellitus, peripheral vascular disease, CKD Stage III 2/2 diabetes?, BPH who was admitted to [facility] on 07/23/2016 and underwent an elective open repair of the left inguinal hernia, currently postoperative day #2 is tachycardic and hypoxemic. Plan: #Acute hypoxemic respiratory failure Differentials at this point include aspiration PNA versus acute coronary syndrome (given he is diabetic, may not present with classic chest pain like symptoms, however, it may be unlikely given he reporterdly had a normal stress test) versus pulmonary embolism (highly likely given eleavyed D-Dimer) versus secondary to atelectasis given he recently underwent surgery and is in pain not being able to take deep breaths. Would encouraged incentive spirometry VQ scan to r/o PE Troponin and EKG so far negative # Sinus tachycardia Most likely 2/2 pulmonary embolism versus pain VQ scan to r/o PE Continue on carvedilol 6.25 BID PO milligrams twice a day Optimize pain control #Hypertension Continue on Cozaar 25 mg daily, carvedilol 6.25 mg twice a day F/U Cardiology recommendations #Hypophosphatemia and hypomagnesemia - Would replete electrolytes to maintain K> 4, Mg and Phosp>2 #Insulin-dependent diabetes mellitus Hypoglycemia Would have him on Novolin R NPO sliding scale Q6 Fingersticks stable with FSG 179, 179, 50, 80 Continue on D5-1/2 NS given he is NPO for cystoscopy later today Would consider Endo recs #GERD in the setting of hematemesis Would switch to Protonix 40mg IV BID Would consider GI consult for endoscopy for ulcers #CKD stage III Most likely secondary to type 2 diabetes Currently stable #Hematuria Resolved Most likely secondary to trauma from Buitrago catheter placement Urology following, plans for cystoscopy today in event the hematuria didnt resolve. Renal US showed simple renal cortical cyst within the upper pole of the right kidney. The bilateral kidneys otherwise appear unremarkable. #BPH Continue on tamsulosin. - Plan of care to be discussed with Dr. Gibson Subjective Subjective: Patient seen and examiend by bedside. He seems very lethargic, and is complaining of nausea. last night, he had episodes of coffee ground emesis andm desaturated to 79%. Stat labs including CBC, BEP, troponin were ordered which were WNL except for low Phosp, CXR showed crowding of the bronchovascular markings at lung bases due to low inspiratory effort. No dense consolidation. No pulmonary vascular congestion or pleural effusion, and EKG revealed sinus tachycardia, with a HR of 137, PACs, LAD, poor R wave progression. A V-Q scan was also ordered which is to be done today as D-Dimer was elevated to 3000's. AXR done yesterday morning to r/o obstruction was negative, and did not show no evidence of free air or obstruction. This morning he was hypoglycemic to the 50, and was given an amp of dextrose after which his blood sugar came up to 80. He is on D5-1/2 NS. Review of Systems Constitutional: Denies: chills, fever. EENTM: Denies: visual changes. Cardiovascular: Denies: chest pain, orthopena, palpitations, peripheral edema. Respiratory: Reports: short of breath. Denies: cough, hemoptysis, orthopnea, sputum production, wheezing. Gastrointestinal: Reports: abdominal pain, nausea, vomiting. Genitourinary: Reports: hematuria. Musculoskeletal: Reports: no symptoms. Neurological/Psychological: Denies: headache, numbness, tingling, tremors, unable to move lower ext, unable to move upper ext, weakness. Objective Last 24 Hrs of Vital Signs/I&O Vital Signs Date Time Temp Pulse Resp B/P Pulse O2 O2 Flow FiO2 Ox Delivery Rate 07/25 0558 98.4 113 22 100/60 99 Nasal 3.0L Cannula 07/24 2156 134 164/94 07/24 2146 99.9 133 28 164/94 93 Nasal 3.0L Cannula 07/24 1509 99.2 120 22 120/80 92 07/24 1113 97 Nasal 1.0L Cannula 07/24 1046 113 150/110 07/24 1046 113 150/110 07/24 1046 113 150/110 07/24 1025 117 144/88 07/24 0800 96 Nasal 1.0L Cannula Intake & Output 07/25 0800 07/25 0000 07/24 1600 Intake Total 800 1300 Output Total 220 650 600 Balance 580 -650 700 Intake, IV 600 600 Intake, Oral 200 700 Output, Urine 220 650 600 Physical Exam General Appearance: awake, lethargic Head: atraumatic, normal appearance Neck: normal inspection, supple Cardiovascular: regular rate/rhythm Respiratory: normal breath sounds, chest non-tender, no respiratory distress, quiet respiration, lungs clear Abdomen: soft, distention (mild), tenderness, hypoactive bowel sounds Extremities: normal inspection, no edema Neurologic/Psychiatric: awake, oriented x 3, drowsy but arousable Current Medications: Current Medications Sig/Fatemeh Start time Last Medication Dose Route Stop Time Status Admin Benzocaine/Menthol 1 RHETT Q2-3 HRS NEEDED.. 07/24 0745 AC 07/24 PO 0950 Carvedilol 6.25 MG BID 07/23 2200 AC 07/24 PO 2156 Cilostazol 100 MG BID 07/23 220 AC 07/24 PO 1150 Dextrose 25 GM ONCE ONE 07/25 0845 UNVr IV 07/25 0846 Dextrose 25 GM ONCE ONE 07/25 0545 DC 07/25 IV 07/25 0546 0552 Dextrose/Sodium 1,000 ML CONTINOUS INFUSION 07/24 2326 07/24 Chloride IV 1046 Insulin Aspart 1 UNITS .STK-MED ONE 07/24 2144 DC MA 07/24 2145 Insulin Human Regular 0 Q6 07/24 2359 AC 07/25 SC 0033 Insulin Human Regular 0 TIDAC/HS 07/23 1700 DC 07/24 SC 07/24 2358 1742 Losartan Potassium 25 MG DAILY 07/24 1000 AC 07/24 PO 1046 Magnesium Sulfate 1 GM Q2H 07/24 0915 DC 07/24 Dextrose/Water 100 ML IV 07/24 1314 1639 Meclizine HCl 12.5 MG TID 07/23 1600 AC 07/24 PO 2156 Metoclopramide HCl 20 MG BID 07/23 2200 AC 07/24 PO 2156 Morphine Sulfate 2 MG Q3P PRN 07/23 1730 AC 07/23 IV 1810 Oxycodone/ 1 TAB Q4P PRN 07/23 1730 AC 07/24 Acetaminophen PO 1507 Oxycodone/ 2 TAB Q4P PRN 07/23 1730 AC Acetaminophen PO Pantoprazole Sodium 40 MG DAILY 07/24 2215 AC 07/25 IV 0030 Patient Medication 1 ED ONE ONE 07/24 1400 DC 07/24 Teaching ED 07/24 1401 1358 Phosphate 250 MG PC AND AT BEDTIME 07/25 0900 AC PO Tamsulosin HCl 0.4 MG DAILY 07/23 1445 AC 07/24 PO 1046 Results Last 24 Hrs Lab/Bret Results: Laboratory Tests 07/25/16 0740: Sodium Pending, Potassium Pending, Chloride Pending, Carbon Dioxide Pending, Anion Gap Pending, BUN Pending, Creatinine Pending, BUN/Creatinine Ratio Pending , Magnesium Pending, CBC w Diff Pending, WBC Pending, RBC Pending, Hgb Pending, Hct Pending, MCV Pending, MCH Pending, RDW Pending, Plt Count Pending, MPV Pending, PUBS MCHC Pending 07/25/16 0116: D-Dimer 3315 H 07/24/16 2220: Troponin I 0.03 07/24/16 2220: Anion Gap 12, Estimated GFR 30 L, BUN/Creatinine Ratio 13.3, Calcium 8.1 L, Phosphorus 1.5 L, Magnesium 2.1, CBC w Diff NO MAN DIFF REQ, RBC 3.32 L, MCV 94.3 H, MCH 31.4 H, RDW 13.8, MPV 8.5, Gran % 74.6, Lymphocytes % 9.9 L, Monocytes % 14.3 H, Eosinophils % 1.0, Basophils % 0.2, Absolute Granulocytes 6.8 H, Absolute Lymphocytes 0.9 L, Absolute Monocytes 1.3 H, Absolute Eosinophils 0.1, Absolute Basophils 0, PUBS MCHC 33.3 Recent Imaging Studies: SERVICE DATE: 07/24/16- EXAM TYPE: US - US-RENAL/KIDNEY FINDINGS: RIGHT KIDNEY: 8.2 x 4.7 x 5.1 cm (SAG x AP x TRV). The kidney is normal in size, contour, and echogenicity. Renal cortical thickness is normal. No calculi or solid parenchymal lesions. There is a 0.9 x 0.8 x 0.6 cm simple cyst within the upper pole of the right kidney. No hydronephrosis. LEFT KIDNEY: 1.4 x 4.9 x 4.7 cm (SAG x AP x TRV). The kidney is normal in size, contour, and echogenicity. Renal cortical thickness is normal. No calculi or focal parenchymal lesions. No hydronephrosis. BLADDER: Not visualized secondary to overlying bandage material from recent hernia repair. IMPRESSION: There is a simple renal cortical cyst within the upper pole of the right kidney. The bilateral kidneys otherwise appear unremarkable. The bladder is not visualized secondary to overlying bandage material from recent hernia repair. SERVICE DATE: 07/24/16 EXAM TYPE: RAD - XRY-PORTABLE CHEST XRAY FINDINGS: Lung volume low. Crowding of the bronchovascular markings at lung bases due to low inspiratory effort. No dense consolidation. No pulmonary vascular congestion or pleural effusion. Compared to the prior chest x-ray there has been no change IMPRESSION: Low inspiratory effort. No focal consolidation. SERVICE DATE: 07/24/16 EXAM TYPE: RAD - [id number] VIEWS FINDINGS: There is no evidence of free air or obstruction. No abnormal calcifications are seen Prominent spondylosis of the lumbar sacral spine manifested by degenerative disc changes and facet arthrosis of. IMPRESSION: No acute abnormality.
--- NOTE | 2016-07-25 07:39 | Event Note ---
Event Note Event Note: At aroung midnight i was called by the surgical PA to assess the pt .He vomited and persistently tacycardiac , his saturations dropped to 79 percent , came up to 93 percent on 3 L of O2. I talked to Surgical Pa and stat labs were ordered .Pt was completly asymptomatic at that time. Afer giving the coreg , heart rate improved (110s). Ekg revealed Sinus Tachy with irregular rate, Stat troponin was negative . D dimer , along with stat labs were recommended. Plan Recommended V/Q scan if pt become continues to remain hypoxic
--- NOTE | 2016-07-25 07:58 | NUR ---
LATE ENTRY 07/24/16 AT 2300, PATIENT VOMITED COFFEE GROUND EMESIS. VS: BP 164/94, PULSE 134, O2 79, TEMP 99.9 PATIENT DID EXPRESS RELIEF AFTER HE VOMITED. PATIENT WAS ASYMPTOMATIC. DEVIN TUCKER WAS NOTIFIED. STARTED PATIENT ON 3L OXYGEN VIA NC AND ADMINISTRED COREG MEDICATION. HIS O2 SAT IMPROVED TO 93. EKG, BLOOD WORK,TROPONIN, XRAY WERE ORDERED AND EXECUTED. CURRENT VS: BP 100/60, PULSE 113, TEMP 98.4, RES 22 O2 SAT 99. 07/25/16 AT 0530 PATIENT BS WAS <50. DEVIN TUCKER WAS NOTIFIED, AMP D50 WAS ADMINISTERED. BS SUGAR WAS RE-CHECKED AT 0615. BS 80.
[2016-07-25 08:25] LABS: ABSOLUTE BASOPHIL COUNT 0 /CUMM (0.0-0.2); ABSOLUTE EOSINOPHIL COUNT 0 /CUMM (0.0-0.7); ABSOLUTE GRANULOCYTE CT 7.3 /CUMM (1.4-6.5); ABSOLUTE LYMPH COUNT 1.5 /CUMM (1.2-3.4); ABSOLUTE MONOCYTE COUNT 1.3 /CUMM (0.10-0.60); BASOPHIL % 0.2 % (0.0-2.0); EOSINOPHIL % 0.3 % (0-5); GRANULOCYTE % 71.4 % (42.2-75.2); HEMATOCRIT 27.8 % (42-52); MEAN CORPUSCULAR HGB 31.8 PG (27.0-31.0); MEAN CORPUSCULAR HGB CONC 33.3 G/DL (33.0-37.0); MEAN CORPUSCULAR VOLUME 95.3 FL (80.0-94.0); MEAN PLATELET VOLUME 8.7 FL (7.4-10.4); PLATELET COUNT 103 /CUMM (130-400); RBC DISTRIBUTION WIDTH 14.3 % (11.5-14.5); RED BLOOD CELL CT 2.91 /CUMM (4.70-6.10); WHITE BLOOD CELL COUNT 10.2 /CUMM (4.8-10.8)
--- NOTE | 2016-07-25 09:20 | PN- Urology ---
Surgical Brief Attending Note Brief Attending Note: Pt with clear unine on initial post-op catheterization. pt voided well overnight with now clear yellow urine. will NOT take to OR for cystoscopy today. dc home per surgery.
--- NOTE | 2016-07-25 09:21 | PN- General Surgery ---
See Addendum Subjective Subjective: Patient had episode of hypoglycemia overnight and receive 1 Amp of D50. I was just called by the RN that states his FBS is <50. He had a heart rate of 134bpm early this morning as well but was asymptomatic. Currently patient is awake and alert and responding to questions stating that he is having pain. Per he has been uncomfortable all night and has vomited 4 times from last night into this morning. No flatus or BM. Currently NPO for cystoscopy but urine has been clear per RN. Patient denies CP/SOB. Objective Vital Signs and I&Os Vital Signs Date Time Temp Pulse Resp B/P Pulse O2 O2 Flow FiO2 Ox Delivery Rate 07/25 0558 98.4 113 22 100/60 99 Nasal 3.0L Cannula 07/25 0000 92 Nasal 3.0L Cannula 07/24 2156 134 164/94 07/24 2146 99.9 133 28 164/94 93 Nasal 3.0L Cannula 07/24 1509 99.2 120 22 120/80 92 07/24 1113 97 Nasal 1.0L Cannula 07/24 1046 113 150/110 07/24 1046 113 150/110 07/24 1046 113 150/110 07/24 1025 117 144/88 Intake & Output 07/25 1600 07/25 0800 07/25 0000 07/24 1600 07/24 0800 07/24 0000 Intake Total 800 1300 600 875 Output Total 220 650 600 700 100 Balance 580 -650 700 -100 775 Intake, IV 600 600 600 450 Intake, Oral 200 700 425 Number 0 Bowel Movements Output, Urine 220 650 600 700 100 Patient 165 lb Weight Physical Exam: General: NAD, uncomfortable, A&Ox2 Chest: NRD, decreased breath sounds BLL. Tachyardic, S1S2 Abdomen: soft, nondistended. Appropriately TTP to LLQ incision. +Bowel sounds x4 quadrants : Left scrotal incision continues to drain serosanguinous. Ext: No calve swelling/TTP, neurovascularly intact bilateral lower extremities Current Medications: Current Medications Sig/Fatemeh Start time Last Medication Dose Route Stop Time Status Admin Benzocaine/Menthol 1 RHETT Q2-3 HRS NEEDED.. 07/24 0745 AC 07/24 PO 0950 Carvedilol 6.25 MG BID 07/23 2199 AC 07/24 PO 2156 Cilostazol 100 MG BID 07/23 2200 AC 07/24 PO 1150 Dextrose 25 GM ONCE ONE 07/25 0845 DC 07/25 IV 07/25 0846 0849 Dextrose 25 GM ONCE ONE 07/25 0545 DC 07/25 IV 07/25 0546 0552 Dextrose/Sodium 1,000 ML CONTINOUS INFUSION 07/24 2326 AC 07/24 Chloride IV 1046 Insulin Aspart 1 UNITS .STK-MED ONE 07/24 2144 DC PA 07/24 2145 Insulin Human Regular 0 Q6 07/24 2359 AC 07/25 SC 0033 Insulin Human Regular 0 TIDAC/HS 07/23 1700 DC 07/24 SC 07/24 2358 1742 Losartan Potassium 25 MG DAILY 07/24 1000 AC 07/24 PO 1046 Magnesium Sulfate 1 GM Q2H 07/24 0915 DC 07/24 Dextrose/Water 100 ML IV 07/24 1314 1639 Meclizine HCl 12.5 MG TID 07/23 1600 AC 07/24 PO 2156 Metoclopramide HCl 20 MG BID 07/23 2200 AC 07/24 PO 2156 Morphine Sulfate 2 MG Q3P PRN 07/23 1730 AC 07/23 IV 1810 Oxycodone/ 1 TAB Q4P PRN 07/23 1730 AC 07/24 Acetaminophen PO 1507 Oxycodone/ 2 TAB Q4P PRN 07/23 1730 AC Acetaminophen PO Pantoprazole Sodium 40 MG DAILY 07/24 2215 AC 07/25 IV 0030 Patient Medication 1 ED ONE ONE 07/24 1400 DC 07/24 Teaching ED 07/24 1401 1358 Phosphate 250 MG PC AND AT BEDTIME 07/25 0900 AC PO Tamsulosin HCl 0.4 MG DAILY 07/23 1445 AC 07/24 PO 1046 Results Last 48 Hours of Labs: Laboratory Tests 07/25 07/25 07/24 0740 0116 2220 Chemistry Sodium Pending Potassium Pending Chloride Pending Carbon Dioxide Pending Anion Gap Pending BUN Pending Creatinine Pending BUN/Creatinine Ratio Pending Magnesium Pending Troponin I (<0.11 ng/ml) 0.03 Coagulation D-Dimer (70 - 232 ng/ml) 3315 H Hematology CBC w Diff NO MAN DIFF REQ WBC (4.8 - 10.8 /CUMM) 10.2 RBC (4.70 - 6.10 /CUMM) 2.91 L Hgb (14.0 - 18.0 G/DL) 9.3 L Hct (42 - 52 %) 27.8 L MCV (80.0 - 94.0 FL) 95.3 H MCH (27.0 - 31.0 PG) 31.8 H RDW (11.5 - 14.5 %) 14.3 Plt Count (130 - 400 /CUMM) 103 L MPV (7.4 - 10.4 FL) 8.7 Gran % (42.2 - 75.2 %) 71.4 Lymphocytes % (20.5 - 51.1 %) 15.1 L Monocytes % (1.7 - 9.3 %) 13.0 H Eosinophils % (0 - 5 %) 0.3 Basophils % (0.0 - 2.0 %) 0.2 Absolute Granulocytes (1.4 - 6.5 /CUMM) 7.3 H Absolute Lymphocytes (1.2 - 3.4 /CUMM) 1.5 Absolute Monocytes (0.10 - 0.60 /CUMM) 1.3 H Absolute Eosinophils (0.0 - 0.7 /CUMM) 0 Absolute Basophils (0.0 - 0.2 /CUMM) 0 PUBS MCHC (33.0 - 37.0 G/DL) 33.3 08 07/24 2220 0640 Chemistry Sodium (137 - 145 mmol/L) 141 141 Potassium (3.5 - 5.1 mmol/L) 4.0 4.3 Chloride (98 - 107 mmol/L) 109 H 115 H Carbon Dioxide (22 - 30 mmol/L) 20 L 19 L Anion Gap (5 - 16) 12 7 BUN (9 - 20 mg/dL) 28 H 23 H Creatinine (0.7 - 1.2 mg/dL) 2.1 H 2.0 H Estimated GFR (>60 ml/min) 30 L 32 L BUN/Creatinine Ratio (7 - 25 %) 13.3 11.5 Calcium (8.4 - 10.2 mg/dL) 8.1 L Phosphorus (2.5 - 4.5 mg/dL) 1.5 L Magnesium (1.6 - 2.3 mg/dL) 2.1 1.4 L Troponin I (<0.11 ng/ml) 0.01 Hematology CBC w Diff NO MAN DIFF REQ NO MAN DIFF REQ WBC (4.8 - 10.8 /CUMM) 9.1 6.9 RBC (4.70 - 6.10 /CUMM) 3.32 L 3.42 L Hgb (14.0 - 18.0 G/DL) 10.4 L 10.8 L Hct (42 - 52 %) 31.3 L 32.2 L MCV (80.0 - 94.0 FL) 94.3 H 94.1 H MCH (27.0 - 31.0 PG) 31.4 H 31.6 H RDW (11.5 - 14.5 %) 13.8 14.0 Plt Count (130 - 400 /CUMM) 114 L 108 L MPV (7.4 - 10.4 FL) 8.5 9.1 Gran % (42.2 - 75.2 %) 74.6 67.9 Lymphocytes % (20.5 - 51.1 %) 9.9 L 17.7 L Monocytes % (1.7 - 9.3 %) 14.3 H 12.3 H Eosinophils % (0 - 5 %) 1.0 1.8 Basophils % (0.0 - 2.0 %) 0.2 0.3 Absolute Granulocytes (1.4 - 6.5 /CUMM) 6.8 H 4.7 Absolute Lymphocytes (1.2 - 3.4 /CUMM) 0.9 L 1.2 Absolute Monocytes (0.10 - 0.60 /CUMM) 1.3 H 0.8 H Absolute Eosinophils (0.0 - 0.7 /CUMM) 0.1 0.1 Absolute Basophils (0.0 - 0.2 /CUMM) 0 0 PUBS MCHC (33.0 - 37.0 G/DL) 33.3 33.5 Assessment/Plan Assessment/Plan 89yo M POD#2 s/p open left inguinal hernia repair. Patient remains mildly tachycardic, otherwise AVSS. Patient was given a 2nd dose of 1 Amp D50 and FBS is 95. Dr. Mcgovern was consulted for ISS managment. - NPO - Pain control - Continue IVF at current rate - f/u Dr. Mcgovern recs - f/u medicine/cards - f/u CBC, BEP - continue FBS checks - I/O's - ALPS - ?resume Pletal - Will d/w attending Core Measures/Miscellaneous Venous Thromboembolism VTE Risk Factors: Age > 40, Surgery VTE Contraindications: No Contraindications VTE Diagnosis: No VTE Type: NONE VTE Confirmed by (Test): NONE Beta Maciej Is Beta Maciej a Home Med? Yes Antibiotics Is Patient on Antibiotics? Yes If Yes: prophylaxis
--- NOTE | 2016-07-25 09:47 | Cons- Endocrinology ---
General Information and HPI Consulting Request Date of Consult: 07/25/16 Requested By: Surgical team Reason for Consult: management of DM type 2 , hypoglycemia in the setting of renal insufficiency Source of Information: patient, old records History of Present Illness: 89-year-old male with a past medical history of hypertension, GERD, diabetes mellitus, peripheral vascular disease, CKD Stage III, BPH who was admitted to [facility] on 07/23/2016 for an elective open repair of the left inguinal hernia. Patient still feels nausea and has been kept NPO. He is on D51/2 NS at 75 ml/ hour and RISS coverage every 6 hours. His FSGs were 254, 179, 50 and 80. At home, she was on Lantus 20 units daily and Onglyza 5 mg daily. Allergies/Medications Allergies: Coded Allergies: No Known Allergies (07/19/16) Home Med List: Carvedilol 6.25 MG TABLET 1 TAB PO BID HEART/BP (Reported) Cilostazol 100 MG TABLET 1 TAB PO BID UNKNOWN (Reported) Folic Acid 1 MG TABLET 1 TAB PO DAILY SUPPLEMENT (Reported) Insulin-Lantus (Lantus) 100 UNIT/ML VIAL 20 UNITS SC DAILY DM (Reported) Losartan Potassium (Cozaar) 25 MG TABLET 1 TAB PO DAILY BP (Reported) Meclizine HCl 12.5 MG TABLET 1 TAB PO TID N/V/DIZZINESS (Reported) Metoclopramide HCl 10 MG TABLET 20 MG PO BID GI (Reported) Saxagliptin (Onglyza) 5 MG TABLET 1 TAB PO DAILY DM (Reported) Tamsulosin HCl (Flomax) 0.4 MG CAP.ER.24H 1 CAP PO DAILY (Reported) Review of Systems Review of Systems Constitutional: Reports: see HPI. EENTM: Reports: no symptoms. Cardiovascular: Denies: chest pain. Respiratory: Denies: short of breath. GI: Reports: nausea. Hematologic/Endocrine: Denies: polyuria, polydipsia. 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 Home Who Do You Live With? significant other Primary Language: Guatemalan Smoking Status: Never Smoked ETOH Use: denies use Illicit Drug Use: denies illicit drug use Functional Ability ADLs Independent: dressing, eating, toileting, bathing. Ambulation: independent IADLs Independent: shopping, housework, finances, food prep, telephone, transportation , medication admin. Exam & Diagnostic Data Last 24 Hrs of Vital Signs/I&O Vital Signs Date Time Temp Pulse Resp B/P Pulse O2 O2 Flow FiO2 Ox Delivery Rate 07/25 0458 98.4 113 22 100/60 99 Nasal 3.0L Cannula 07/25 0000 92 Nasal 3.0L Cannula 07/24 2156 134 164/94 07/24 2146 99.9 133 28 164/94 93 Nasal 3.0L Cannula 07/24 1509 99.2 120 22 120/80 92 Intake & Output 07/25 1600 07/25 0800 07/25 0000 Intake Total 800 Output Total 220 650 Balance 580 -650 Intake, IV 600 Intake, Oral 200 Output, Urine 220 650 Physical Exam General Appearance: no apparent distress, lethargic, mild distress Neck: normal inspection Respiratory: decreased breath sounds Cardiovascular: regular rate/rhythm Gastrointestinal: non-tender Extremities: no edema Labs/Bret Results: Laboratory Tests 07/25 07/25 07/24 0740 0116 2220 Chemistry Sodium (137 - 145 mmol/L) 142 Potassium (3.5 - 5.1 mmol/L) 3.9 Chloride (98 - 107 mmol/L) 114 H Carbon Dioxide (22 - 30 mmol/L) 20 L Anion Gap (5 - 16) 7 BUN (9 - 20 mg/dL) 38 H Creatinine (0.7 - 1.2 mg/dL) 2.4 H Estimated GFR (>60 ml/min) 26 L BUN/Creatinine Ratio (7 - 25 %) 15.8 Magnesium (1.6 - 2.3 mg/dL) 2.1 Troponin I (<0.11 ng/ml) 0.03 Coagulation D-Dimer (70 - 232 ng/ml) 3315 H Hematology CBC w Diff NO MAN DIFF REQ WBC (4.8 - 10.8 /CUMM) 10.2 RBC (4.70 - 6.10 /CUMM) 2.91 L Hgb (14.0 - 18.0 G/DL) 9.3 L Hct (42 - 52 %) 27.8 L MCV (80.0 - 94.0 FL) 95.3 H MCH (27.0 - 31.0 PG) 31.8 H RDW (11.5 - 14.5 %) 14.3 Plt Count (130 - 400 /CUMM) 103 L MPV (7.4 - 10.4 FL) 8.7 Gran % (42.2 - 75.2 %) 71.4 Lymphocytes % (20.5 - 51.1 %) 15.1 L Monocytes % (1.7 - 9.3 %) 13.0 H Eosinophils % (0 - 5 %) 0.3 Basophils % (0.0 - 2.0 %) 0.2 Absolute Granulocytes (1.4 - 6.5 /CUMM) 7.3 H Absolute Lymphocytes (1.2 - 3.4 /CUMM) 1.5 Absolute Monocytes (0.10 - 0.60 /CUMM) 1.3 H Absolute Eosinophils (0.0 - 0.7 /CUMM) 0 Absolute Basophils (0.0 - 0.2 /CUMM) 0 PUBS MCHC (33.0 - 37.0 G/DL) 33.3 03/08 2220 Chemistry Sodium (137 - 145 mmol/L) 141 Potassium (3.5 - 5.1 mmol/L) 4.0 Chloride (98 - 107 mmol/L) 109 H Carbon Dioxide (22 - 30 mmol/L) 20 L Anion Gap (5 - 16) 12 BUN (9 - 20 mg/dL) 28 H Creatinine (0.7 - 1.2 mg/dL) 2.1 H Estimated GFR (>60 ml/min) 30 L BUN/Creatinine Ratio (7 - 25 %) 13.3 Calcium (8.4 - 10.2 mg/dL) 8.1 L Phosphorus (2.5 - 4.5 mg/dL) 1.5 L Magnesium (1.6 - 2.3 mg/dL) 2.1 Hematology CBC w Diff NO MAN DIFF REQ WBC (4.8 - 10.8 /CUMM) 9.1 RBC (4.70 - 6.10 /CUMM) 3.32 L Hgb (14.0 - 18.0 G/DL) 10.4 L Hct (42 - 52 %) 31.3 L MCV (80.0 - 94.0 FL) 94.3 H MCH (27.0 - 31.0 PG) 31.4 H RDW (11.5 - 14.5 %) 13.8 Plt Count (130 - 400 /CUMM) 114 L MPV (7.4 - 10.4 FL) 8.5 Gran % (42.2 - 75.2 %) 74.6 Lymphocytes % (20.5 - 51.1 %) 9.9 L Monocytes % (1.7 - 9.3 %) 14.3 H Eosinophils % (0 - 5 %) 1.0 Basophils % (0.0 - 2.0 %) 0.2 Absolute Granulocytes (1.4 - 6.5 /CUMM) 6.8 H Absolute Lymphocytes (1.2 - 3.4 /CUMM) 0.9 L Absolute Monocytes (0.10 - 0.60 /CUMM) 1.3 H Absolute Eosinophils (0.0 - 0.7 /CUMM) 0.1 Absolute Basophils (0.0 - 0.2 /CUMM) 0 PUBS MCHC (33.0 - 37.0 G/DL) 33.3 Assessment/Plan Assessment/Plan 89-year-old male with a past medical history of hypertension, GERD, diabetes mellitus, peripheral vascular disease, CKD Stage III, BPH who was admitted to [facility] on 07/23/2016 for an elective open repair of the left inguinal hernia.Patient still feels nausea and has been kept NPO. He is on D51/2 NS at 75 ml/hour and RISS coverage every 6 hours. his glucose level was 50 this morning. Management of DM: 1. agree with the current IVF. 2. adjust his RISS every 6 hours-- details see the inpatient DM order. 3. monitor FSGs. will follow. Inpatient Diabetes Orders Every 6 Hours: Bolus Insulin: regular insulin < 80 mg/dl: no coverage 80-100 mg/dl: no coverage 101-120 mg/dl: no coverage 121-150 mg/dl: no coverage 151-200 mg/dl: 2 units 201-250 mg/dl: 3 units 251-300 mg/dl: 4 units 301-350 mg/dl: 6 units 351-400 mg/dl: 8 units > 400 mg/dl: inform MD Consult Acknowledgment - Thank you for your consult request.
--- NOTE | 2016-07-25 10:29 | PN- Att Addend ---
Attending Addendum Attending Brief Note Patient seen and examined. Plan of care discussed with the medical team and the patient. Available lab work and radiology test reports were reviewed. Patient is slightly tachypneic. Last night patient was noted to have hematemesis with coffee-ground emesis. His urine is relatively clear now. Last night patient noted hyperglycemia with glucose of 50s. He was given D50 and glucose this morning is 98. Patient states that he is feeling lightheaded. Vital Signs Date Time Temp Pulse Resp B/P Pulse O2 O2 Flow FiO2 Ox Delivery Rate 07/25 0458 98.4 113 22 100/60 99 Nasal 3.0L Cannula 07/25 0000 92 Nasal 3.0L Cannula 07/24 2156 134 164/94 07/24 2146 99.9 133 28 164/94 93 Nasal 3.0L Cannula 07/24 1509 99.2 120 22 120/80 92 07/24 1113 97 Nasal 1.0L Cannula 07/24 1046 113 150/110 07/24 1046 113 150/110 07/24 1046 113 150/110 07/24 1025 117 144/88 Intake & Output 07/25 1600 07/25 0800 07/25 0000 Intake Total 800 Output Total 220 650 Balance 580 -650 Intake, IV 600 Intake, Oral 200 Output, Urine 220 650 Exam: General: Patient awake but lethargic CVS: S1 plus S2 without any murmur or gallops Chest: Few scattered crepitation without any wheeze. There is no respiratory distress. Abdomen: Soft with sluggish bowel sounds, surgical dressing in place over the left inguinal area. BLOWING WEASAND: Awake but lethargic and oriented without any focal neuro deficit and follows command appropriately Extremities: No edema; no clubbing or cyanosis noted Laboratory Tests 07/25 07/25 07/24 0740 0116 2220 Chemistry Sodium (137 - 145 mmol/L) 142 Potassium (3.5 - 5.1 mmol/L) 3.9 Chloride (98 - 107 mmol/L) 114 H Carbon Dioxide (22 - 30 mmol/L) 20 L Anion Gap (5 - 16) 7 BUN (9 - 20 mg/dL) 38 H Creatinine (0.7 - 1.2 mg/dL) 2.4 H Estimated GFR (>60 ml/min) 26 L BUN/Creatinine Ratio (7 - 25 %) 15.8 Magnesium (1.6 - 2.3 mg/dL) 2.1 Troponin I (<0.11 ng/ml) 0.03 Coagulation D-Dimer (70 - 232 ng/ml) 3315 H Hematology CBC w Diff NO MAN DIFF REQ WBC (4.8 - 10.8 /CUMM) 10.2 RBC (4.70 - 6.10 /CUMM) 2.91 L Hgb (14.0 - 18.0 G/DL) 9.3 L Hct (42 - 52 %) 27.8 L MCV (80.0 - 94.0 FL) 95.3 H MCH (27.0 - 31.0 PG) 31.8 H RDW (11.5 - 14.5 %) 14.3 Plt Count (130 - 400 /CUMM) 103 L MPV (7.4 - 10.4 FL) 8.7 Gran % (42.2 - 75.2 %) 71.4 Lymphocytes % (20.5 - 51.1 %) 15.1 L Monocytes % (1.7 - 9.3 %) 13.0 H Eosinophils % (0 - 5 %) 0.3 Basophils % (0.0 - 2.0 %) 0.2 Absolute Granulocytes (1.4 - 6.5 /CUMM) 7.3 H Absolute Lymphocytes (1.2 - 3.4 /CUMM) 1.5 Absolute Monocytes (0.10 - 0.60 /CUMM) 1.3 H Absolute Eosinophils (0.0 - 0.7 /CUMM) 0 Absolute Basophils (0.0 - 0.2 /CUMM) 0 PUBS MCHC (33.0 - 37.0 G/DL) 33.3 07/24 2220 Chemistry Sodium (137 - 145 mmol/L) 141 Potassium (3.5 - 5.1 mmol/L) 4.0 Chloride (98 - 107 mmol/L) 109 H Carbon Dioxide (22 - 30 mmol/L) 20 L Anion Gap (5 - 16) 12 BUN (9 - 20 mg/dL) 28 H Creatinine (0.7 - 1.2 mg/dL) 2.1 H Estimated GFR (>60 ml/min) 30 L BUN/Creatinine Ratio (7 - 25 %) 13.3 Calcium (8.4 - 10.2 mg/dL) 8.1 L Phosphorus (2.5 - 4.5 mg/dL) 1.5 L Magnesium (1.6 - 2.3 mg/dL) 2.1 Hematology CBC w Diff NO MAN DIFF REQ WBC (4.8 - 10.8 /CUMM) 9.1 RBC (4.70 - 6.10 /CUMM) 3.32 L Hgb (14.0 - 18.0 G/DL) 10.4 L Hct (42 - 52 %) 31.3 L MCV (80.0 - 94.0 FL) 94.3 H MCH (27.0 - 31.0 PG) 31.4 H RDW (11.5 - 14.5 %) 13.8 Plt Count (130 - 400 /CUMM) 114 L MPV (7.4 - 10.4 FL) 8.5 Gran % (42.2 - 75.2 %) 74.6 Lymphocytes % (20.5 - 51.1 %) 9.9 L Monocytes % (1.7 - 9.3 %) 14.3 H Eosinophils % (0 - 5 %) 1.0 Basophils % (0.0 - 2.0 %) 0.2 Absolute Granulocytes (1.4 - 6.5 /CUMM) 6.8 H Absolute Lymphocytes (1.2 - 3.4 /CUMM) 0.9 L Absolute Monocytes (0.10 - 0.60 /CUMM) 1.3 H Absolute Eosinophils (0.0 - 0.7 /CUMM) 0.1 Absolute Basophils (0.0 - 0.2 /CUMM) 0 PUBS MCHC (33.0 - 37.0 G/DL) 33.3 Last night chest x-ray did not show any focal consolidation Abdomen exit done yesterday did not show any acute process . Assessment plan * Sinus tachycardia- first troponin is negative, other differential could include pulmonary embolism however this is too soon after postoperative to develop pulmonary embolism. Possible dehydration. Other differential could include pain. * Shorts of breath and hypoxia- patient currently not hypoxic on the exam shows slight elevation in JVD no clear pulmonary edema is noted on chest x-ray. * Left Hernia repair * Upper GI bleed * Hematuria- now resolving * Chronic renal failure * Hyporglycemia * Acute and chronic renal failure with increasing creatinine 2.4 * Thrombocytopenia- likely chronic * Hypophosphatemia Plan * Check BNP level * Continue IV fluids with D5W half normal saline * Recheck BEP tomorrow * Continue Cozaar and carvedilol * Cardio consult note reviewed * Control pain adequately * Continue IV Protonix * Start subcutaneous Lovenox for DVT prophylaxis * Continue Accu-Chek monitoring * Recheck phosphorus level tomorrow
--- NOTE | 2016-07-25 11:30 | Operative Report ---
See Addendum Operative/Inv Procedure Report Surgery Date: 07/24/16 Name of Procedure: Open left inguinal hernia repair with mesh, increased work and difficulty, separate scrotal incision with intrascrotal exploration and lysis of adhesions between small bowel and scrotum and colon and omentum Pre-Operative Diagnosis: Large incarcerated left inguinal scrotal hernia with partial bowel obstruction Post-Operative Diagnosis: Same Estimated Blood Loss: less than 50ml Surgeon/Photo Mask Cleaner: REGINALD US,OMID BELTRAN, Darion BELTRAN Anesthesia: general endotracheal tube Operative/Procedure Note Note: Patient was placed on the OR table in the supine position. After successful induction of general anesthesia the patient's abdomen pelvis and scrotum were clipped prepped and draped in the usual sterile fashion. We planned a left inguinal incision parallel to the inguinal ligament between the iliac crest and pubis, and 7 cm long given the size of the hernia. Local anesthetic was injected both superficially and deep and then the incision was made with a 10 blade deepened through the subcutaneous layer them with cautery through Karen's fascia we cleared off the external oblique aponeurosis injected more local anesthetic and then incised it with Metzenbaums in the direction of its fibers opening the inguinal canal sparing the ilioinguinal nerve step was right there. The defect was about 5 cm wide through the floor of the inguinal canal continuing into the scrotum. We used either retractors to keep the canal open while retracting reduced the scrotal contents there were adhesions at this point to the scrotum and overall very little could be moved out so decision was made to make a separate scrotal incision laterally on the left. An area was chosen was infiltrated local anesthetic and then made with a 15 blade and deepened through the layers initially with the knife and then with cautery until we came through the thin muscle layer to the hernia sac which was filled with: Small bowel and omentum. From this vantage point you could see why we could not reduce the hernia because the small bowel was adhesed to itself creating a grapefruit-sized mass of tortuous thickened small bowel, which explains the clinical scenario of partial bowel obstruction, and which was significantly larger than the defect so we had to undo this mass of small bowel, and sharp lysis of adhesions continued in total over 2 hours. Once this portion of small bowel was "straightened out "we could then gently very gradually reduce it bimanually back into the peritoneum, followed by the omentum and the colon. Next the floor of the defect was imbricated using the thickened redundant sac just to keep it out of the way then we took Sierra administrative analyst polypropylene Velcro type mesh with the keyhole oriented and placed it over the defect starting at the pubic tubercle with some medial overlap anchoring it with a 2-0 Prolene suture continuing it inferiorly and laterally running fashion to the shelving edge of the inguinal ligament care was taken to avoid the iliac vessels deep. By this time we had also isolated the cord structures the vas and the main vessels and the pampiniform plexus and retracted them with a Pelham drain and we had to loop and arrange this keyhole mesh around it restoring the deep ring. The crotch of the mesh at the keyhole was reinforced with a single Prolene suture and the rest of the mesh was tacked down medially to the rectus fascia superiorly to the internal oblique aponeurosis avoiding injury to the iliohypogastric nerve and laterally towards the ASIS keeping it flat with multiple interrupted 2-0 Vicryl sutures. The area was irrigated especially the scrotum which was closed in layers but leaving an opening at the bottom to put in a Enio drain to drain the large scrotal space as well as with a separate stitch covered by bacitracin and gauze. The inguinal incision was closed in layers using 2-0 Vicryl for the external oblique followed by 3-0 Vicryl for Karen's fascia followed by running subcuticular 4-0 Biosyn suture for the skin itself followed by Mastisol Steri- Strips Telfa and an island dressing. A scrotal support was also placed and a Buitrago catheter was placed with minimum resistance with clear yellow urine 500 ML 's counted in the recovery room. EBL minimal Lap and sponge and sponge counts: correct Wound expectancy: Clean IV fluids: crystalloid Complications: none Patient tolerated the procedure well was awakened and extubated and returned to the recovery room in satisfactory condition.
--- NOTE | 2016-07-25 12:10 | NUCLEAR MEDICINE REPORT ---
EXAMINATION: PULMONARY VENTILATION PERFUSION STUDY CLINICAL INFORMATION: Hypoxia. COMPARISON: No previous lung scan is available for comparison. A radiograph of the chest dated 07/24/2016 is available for comparison. TECHNIQUE: Serial gamma scintillation camera images were obtained over the posterior chest during the single breath, equilibrium rebreathing and washout of 7.5 mCi Xe 133 gas. The patient then received 4.3 mCi Tc-99m MAA intravenously and a 6-view perfusion study was performed. FINDINGS: Ventilation images: On the single breath and equilibrium images there is homogeneous distribution of gas bilaterally. During the washout phase there is minimal gas retention at the left lung base.. Perfusion images: No segmental perfusion defects are present. There is a minimal nonsegmental perfusion abnormality which is pleural-based posteriorly in the right mid to lower lung field, best visualized on the LPO view. There are no focal or anatomic appearing perfusion defects. IMPRESSION: Very low probability of pulmonary embolism.
--- NOTE | 2016-07-25 13:20 | Event Note ---
Event Note Event Note: Patient had another FBS glucose level <50. He was given 1 amp of D50 again. Repeat FBS is 140. Patient comofortable. Will repeat again. If elevated will contact Dr. Mcgovern again regarding hypoglycemia. Enio drain in left side of the scrotum was dc'd bedside and covered with bacitracin and dry gauze bandages. Patient tolerated well.
[2016-07-25 15:46] VITALS: BP 160/80
--- NOTE | 2016-07-25 20:04 | Event Note ---
Event Note Event Note: ordered ABG per Dr. Kauffman's request results reviewed by both of us. MOD called who advised to observe patient at the current time and follow up AM labs
--- NOTE | 2016-07-25 21:00 | NUR ---
PT CONTINUES TO HAVE ELEVATED HR 130'S, NOTIFIED MEDICAL AND SURGICAL TEAM. WILL CONTINUE TO MONITOR THIS SHIFT.
--- NOTE | 2016-07-25 21:05 | ECHOCARDIOGRAM REPORT ---
NICKIE HAWKINS Age: 89 : 1925 Gender: M Exam Date: 07/25/2016 16:14 Exam Location: [address] [place] [address] Ht (in): 66 Wt (lb): 165 BSA: 1.88 BP: 160 / 90 Ordering Physician: KATHRYN LANTIGUA PA Referring Physician: Ree Stephen MD Technologist: Kaye Carrero [facility] Room Number: [id number] Indications: SHORTNESS OF BREATH Rhythm: Sinus Technical Quality: Fair FINDINGS Left Ventricle Normal size left ventricle. No obvious regional wall motion abnormalities. Hyperdynamic left ventricular systolic function. Normal left ventricular ejection fraction estimated at 65-70%. Right Ventricle Normal right ventricular size and function. Right Atrium Normal right atrial size. Left Atrium Mild left atrial dilatation. Mitral Valve Mitral valve thickened. Trace to mild mitral regurgitation. Aortic Valve Trileaflet aortic valve. Diffuse thickening (sclerosis) of the aortic valve cusps without reduced excursion. No aortic stenosis. No aortic regurgitation. Tricuspid Valve Tricuspid valve not well visualized, grossly normal. Mild tricuspid regurgitation. Pulmonic Valve Pulmonic valve not well visualized, grossly normal. Trace to mild pulmonic regurgitation. Pericardium No pericardial effusion. Great Vessels Normal size aortic root and proximal ascending aorta. CONCLUSIONS 1. Mild aortic sclerosis is present with no valvular stenosis or insufficiency. 2. Mitral leaflet thickening is present with minimal to mild mitral insufficiency and mild left atrial enlargement. 3. There is no pericardial fluid detected. 4. The left ventricular chamber size is normal with mild concentric hypertrophy and a normal ejection fraction. Mild diastolic dysfunction is present. 5. Minimal to mild tricuspid and pulmonic insufficiency are present with no evidence of pulmonary hypertension. 6. A followup examination is suggested when the patient's heart rate is slower. Ree Stephen M.D. (Electronically Signed) Final Date: 25 July 2016 21:04 MEASUREMENTS (Male / Female) Normal Values 2D ECHO LV Diastolic Diameter PLAX 3.4 cm 4.2 - 5.9 / 3.9 - 5.3 cm LV Systolic Diameter PLAX 1.8 cm 2.1 - 4.0 cm LV Fractional Shortening PLAX 47.1 % 25 - 46 % LV Ejection Fraction 2D Teich 79.5 % IVS Diastolic Thickness 1.4 cm LVPW Diastolic Thickness 1.3 cm LV Relative Wall Thickness 0.8 RV Internal Dim ED PLAX 2.2 cm 1.9 - 3.8 cm LVOT Diameter 2.0 cm Aortic Root Diameter 3.1 cm LA Systolic Diameter LX 2.3 cm 3.0 - 4.0 / 2.7 - 3.8 cm LA Volume 21.0 cm 18 - 58 / 22 - 52 cm Ascending Aorta Diameter 3.3 cm DOPPLER AV Peak Velocity 128.0 cm/s AV Peak Gradient 6.6 mmHg AV Mean Velocity 85.7 cm/s AV Mean Gradient 3.0 mmHg AV Velocity Time Integral 17.1 cm LVOT Peak Velocity 109.0 cm/s LVOT Peak Gradient 4.8 mmHg LVOT Mean Velocity 62.6 cm/s LVOT Mean Gradient 2.0 mmHg LVOT Velocity Time Integral 13.5 cm LVOT Stroke Volume 42.4 cm AV Area Cont Eq vti 2.5 cm AV Area Cont Eq pk 2.7 cm MV Peak Velocity 128.0 cm/s MV Peak Gradient 6.6 mmHg MV Mean Velocity 64.9 cm/s MV Mean Gradient 2.0 mmHg Mitral E Point Velocity 104.0 cm/s MV PHT Velocity 107.0 cm/s MV Deceleration Braxton 700.0 cm/s MV Pressure Half Time 45.9 ms MV Area PHT 4.8 cm MV Deceleration Time 177.0 ms TR Peak Velocity 287.0 cm/s TR Peak Gradient 32.9 mmHg Right Atrial Pressure 5.0 mmHg Pulmonary Artery Systolic Pressu 37.9 mmHg Right Ventricular Systolic Press 37.9 mmHg PV Peak Velocity 102.0 cm/s PV Peak Gradient 4.2 mmHg PV Mean Velocity 66.8 cm/s PV Mean Gradient 2.0 mmHg PV Velocity Time Integral 12.0 cm LV E' Lateral Velocity 10.2 cm/s Mitral E to LV E' Lateral Ratio 10.2 LV E' Septal Velocity 7.5 cm/s Mitral E to LV E' Septal Ratio 13.8
--- NOTE | 2016-07-25 21:36 | NUR ---
PT IS MUCH MORE COMFORTABLE AT THIS TIME. OVERNIGHT LAST NIGHT INTO MORNING PT VOMITTED AND HAD LOW SUGAR. IN AM PT'S SUGAR WAS UP TO 80 THEN 96. PT FELT WEAK AGAIN AND SUGAR WAS LESS THAN 50. AMP WAS GIVEN . PT REMAINED NPO. DR. JENKINS SAW PT AND STATED TO KEEP THE FLUIDS IS D5 1/2 NS AT 75 ML/HR. PT'S SUGAR WAS LOW AGAIN AT 1200 AND THEN WENT UP TO 140. IN AFTERNOON PT WAS TACHYCARDIC AND TACYPENIC. PA WAS AWARE. BP WAS ELEVATED 160/70 PULSE 124-128.HELD BP MEDS EARLIER SINCE CORPORATE QUALITY ENGINEER BP WAS LOW. BP MEDS WERE GIVEN. RR WAS AROUND 30. NO FURHTER ORDERS. PT WAS ABLE TO CALM DOWN AFTER INCREASED 02 TO 4L. CHANGED FLUFFEX ON WOUND. DR ARRIAGA DID NOT CHANGE ANY ORDERS AT THIS TIME. WAS MUCH MORE COMFORTABLE.CONTINUE TO MONITOR
[2016-07-25 21:57] VITALS: BP 120/60
[2016-07-26 00:38] VITALS: BP 120/60
--- NOTE | 2016-07-26 07:17 | PN- Medicine Consult ---
Assessment/Plan Assessment/Plan Assessment: 89-year-old male with a past medical history of hypertension, GERD, insulin- dependent diabetes mellitus, peripheral vascular disease, CKD Stage III 2/2 diabetes?, BPH who was admitted to [facility] on 07/23/2016 and underwent an elective open repair of the left inguinal hernia, currently postoperative day #3 is tachycardic and hypoxemic. Plan: #Acute hypoxemic respiratory failure Differentials at this point include aspiration PNA versus atelectasis given he recently underwent surgery and is in pain not being able to take deep breaths. Continue incentive spirometry VQ scan r/o PE Troponin and EKG so far negative # Sinus tachycardia Most likely 2/2 pain? VQ showed low probability of PE Consider increasing carvedilol to 12.5 BID PO milligrams twice a day Optimize pain control #Hypertension Continue on Cozaar 25 mg daily, consider increasing carvedilol to 12.5 mg twice a day F/U Cardiology recommendations #Hypophosphatemia and hypomagnesemia - Would replete electrolytes to maintain K> 4, Mg and Phosp>2 #Insulin-dependent diabetes mellitus Episodes of hypoglycemia On Novolin R NPO sliding scale Q6 Fingersticks stable with FSG 99, 123, 157, 214, 294, 267 Endo on board. F/U recs Patient is currently NPO. Advance diet as per Surgery #GERD in the setting of hematemesis No further episodes fo hematemesis Continue Protonix 40mg IV daily Would consult GI for endsocopy given drop in H&H, and episodes of hematemesis. #CKD stage III Most likely secondary to type 2 diabetes Stable #Hematuria Resolved Most likely secondary to trauma from Buitrago catheter placement Renal US showed simple renal cortical cyst within the upper pole of the right kidney. The bilateral kidneys otherwise appear unremarkable. #BPH Continue on tamsulosin. - Plan of care discussed with Dr. Gibson Subjective Subjective: Patient seen and examined at bedside. Looks and states he feels better today and is now on 3.0 liters of O2, instead of 4. No CP, SOB. Review of Systems Constitutional: Denies: chills, fever, weakness. EENTM: Denies: visual changes. Cardiovascular: Denies: chest pain, orthopena, palpitations. Respiratory: Denies: cough, short of breath, wheezing. Gastrointestinal: Denies: abdominal pain, nausea, vomiting. Genitourinary: Reports: no symptoms. Musculoskeletal: Reports: no symptoms. Neurological/Psychological: Denies: headache, numbness, tingling, tremors. Objective Last 24 Hrs of Vital Signs/I&O Vital Signs Date Time Temp Pulse Resp B/P Pulse O2 O2 Flow FiO2 Ox Delivery Rate 07/26 0038 98.5 119 20 120/60 96 Nasal 3.0L Cannula 07/26 0000 97 Nasal 4.0L Cannula 07/25 2220 130 07/25 2204 130 120/60 07/25 2157 99.7 24 120/60 97 Nasal 3.0L Cannula 07/25 1546 97.9 129 24 160/80 95 07/25 1325 120 160/90 07/25 1325 121 160/90 07/25 0800 Nasal 3.0L Cannula Intake & Output 07/26 0800 07/26 0000 07/25 1600 Intake Total 600 660 600 Output Total 250 570 550 Balance 350 90 50 Intake, IV 600 600 600 Intake, Oral 60 Output, Urine 250 570 550 Physical Exam General Appearance: alert, awake, lethargic Head: atraumatic, normal appearance Neck: normal inspection, supple Cardiovascular: regular rate/rhythm Respiratory: normal breath sounds, chest non-tender, no respiratory distress, quiet respiration, lungs clear Abdomen: normal bowel sounds, soft, non-tender Extremities: normal inspection, normal capillary refill, normal range of motion, no edema Neurologic/Psychiatric: no motor/sensory deficits, awake, alert, oriented x 3 Current Medications: Current Medications Sig/Fatemeh Start time Last Medication Dose Route Stop Time Status Admin Benzocaine/Menthol 1 RHETT Q2-3 HRS NEEDED.. 07/24 0645 AC 07/24 PO 0950 Carvedilol 6.25 MG BID 07/23 2199 AC 07/25 PO 220 Cilostazol 100 MG BID 07/23 2199 AC 07/25 PO 2222 Dextrose 25 GM ONCE ONE 07/25 1200 DC 07/25 IV 07/25 1201 1204 Dextrose 25 GM ONCE ONE 07/25 0845 DC 07/25 IV 07/25 0846 0849 Dextrose/Sodium 1,000 ML CONTINOUS INFUSION 07/24 2326 AC 07/26 Chloride IV 0040 Heparin Sodium 5,000 UNIT Q8 07/25 2199 AC 07/26 (Porcine) SC 0611 Insulin Human Regular 0 Q6 07/24 2359 AC 07/26 SC 0605 Losartan Potassium 25 MG DAILY 07/24 1000 AC 07/25 PO 1325 Meclizine HCl 12.5 MG TID 07/23 1600 AC 07/25 PO 2203 Metoclopramide HCl 20 MG BID 07/23 2200 AC 07/25 PO 2203 Morphine Sulfate 2 MG Q3P PRN 07/23 1730 AC 07/25 IV 2100 Oxycodone/ 1 TAB Q4P PRN 07/23 1730 AC 07/24 Acetaminophen PO 1507 Oxycodone/ 2 TAB Q4P PRN 07/23 1730 AC Acetaminophen PO Pantoprazole Sodium 40 MG DAILY 07/24 2215 AC 07/25 IV 0030 Patient Medication 1 ED ONE ONE 07/25 1400 DC Teaching ED 07/25 1401 Phosphate 250 MG PC AND AT BEDTIME 07/25 0900 AC 07/25 PO 2204 Potassium Phosphate 15 mMol ONE ONE 07/25 1230 DC 07/25 Dextrose/Water 250 ML IV 07/25 1633 1425 Tamsulosin HCl 0.4 MG DAILY 07/23 1445 AC 07/24 PO 1046 Results Last 24 Hrs Lab/Bret Results: Laboratory Tests 07/25/16 1900: pH 7.44, pCO2 24 L, pO2 92, HCO3 16 L, ABG O2 Sat (Measured) 95.0 L, P-50 ( Temp Corrected) N, Carboxyhemoglobin 0.3 L, O2 Concentration % 3L, Temperature 97.9, O2 Delivery Method N/C, Phlebotomy Draw Site RIGHT BRACHIAL 07/25/16 1222: Glucose 143 H 07/25/16 0740: Anion Gap 7, Estimated GFR 26 L, BUN/Creatinine Ratio 15.8, Magnesium 2.1, CBC w Diff NO MAN DIFF REQ, RBC 2.91 L, MCV 95.3 H, MCH 31.8 H, RDW 14.3, MPV 8.7 , Gran % 71.4, Lymphocytes % 15.1 L, Monocytes % 13.0 H, Eosinophils % 0.3, Basophils % 0.2, Absolute Granulocytes 7.3 H, Absolute Lymphocytes 1.5, Absolute Monocytes 1.3 H, Absolute Eosinophils 0, Absolute Basophils 0, PUBS MCHC 33.3 Recent Imaging Studies: SERVICE DATE: 07/25/16- EXAM TYPE: NUC - LUNG SCAN (V/Q) FINDINGS: Ventilation images: On the single breath and equilibrium images there is homogeneous distribution of gas bilaterally. During the washout phase there is minimal gas retention at the left lung base.. Perfusion images: No segmental perfusion defects are present. There is a minimal nonsegmental perfusion abnormality which is pleural-based posteriorly in the right mid to lower lung field, best visualized on the LPO view. There are no focal or anatomic appearing perfusion defects. IMPRESSION: Very low probability of pulmonary embolism. SERVICE DATE: 07/25/16- EXAM TYPE: CARD - ECHOCARDIOGRAM FINDINGS Left Ventricle Normal size left ventricle. No obvious regional wall motion abnormalities. Hyperdynamic left ventricular systolic function. Normal left ventricular ejection fraction estimated at 65-70%. Right Ventricle Normal right ventricular size and function. Right Atrium Normal right atrial size. Left Atrium Mild left atrial dilatation. Mitral Valve Mitral valve thickened. Trace to mild mitral regurgitation. Aortic Valve Trileaflet aortic valve. Diffuse thickening (sclerosis) of the aortic valve cusps without reduced excursion. No aortic stenosis. No aortic regurgitation. Tricuspid Valve Tricuspid valve not well visualized, grossly normal. Mild tricuspid regurgitation. Pulmonic Valve Pulmonic valve not well visualized, grossly normal. Trace to mild pulmonic regurgitation. Pericardium No pericardial effusion. Great Vessels Normal size aortic root and proximal ascending aorta. CONCLUSIONS 1. Mild aortic sclerosis is present with no valvular stenosis or insufficiency. 2. Mitral leaflet thickening is present with minimal to mild mitral insufficiency and mild left atrial enlargement. 3. There is no pericardial fluid detected. 4. The left ventricular chamber size is normal with mild concentric hypertrophy and a normal ejection fraction. Mild diastolic dysfunction is present. 5. Minimal to mild tricuspid and pulmonic insufficiency are present with no evidence of pulmonary hypertension. 6. A followup examination is suggested when the patient's heart rate is slower.
[2016-07-26 07:31] VITALS: BP 140/78
[2016-07-26 07:40] LABS: ABSOLUTE BASOPHIL COUNT 0 /CUMM (0.0-0.2); ABSOLUTE EOSINOPHIL COUNT 0.2 /CUMM (0.0-0.7); ABSOLUTE GRANULOCYTE CT 7.8 /CUMM (1.4-6.5); BASOPHIL % 0.2 % (0.0-2.0); EOSINOPHIL % 1.9 % (0-5); GRANULOCYTE % 77.8 % (42.2-75.2); HEMATOCRIT 24.1 % (42-52); MEAN CORPUSCULAR HGB 31.9 PG (27.0-31.0); MEAN CORPUSCULAR HGB CONC 33.4 G/DL (33.0-37.0); MEAN CORPUSCULAR VOLUME 95.5 FL (80.0-94.0); MEAN PLATELET VOLUME 8.8 FL (7.4-10.4); PLATELET COUNT 99 /CUMM (130-400); RBC DISTRIBUTION WIDTH 14.5 % (11.5-14.5); RED BLOOD CELL CT 2.52 /CUMM (4.70-6.10)
--- NOTE | 2016-07-26 07:53 | PN- General Surgery ---
See Addendum Subjective Subjective: Late Entry Patient resting comfortably in bed. No complaints at present. Family at bedside. Denies CP/SOB, N/V, F/C. Yet to ambulate. Voiding spontaneously. Passing flatus, yet to have BM. Objective Vital Signs and I&Os Vital Signs Date Time Temp Pulse Resp B/P Pulse O2 O2 Flow FiO2 Ox Delivery Rate 07/27 923 112 132/82 07/27 923 112 132/82 07/27 923 112 132/82 07/27 799 96 Nasal 3.0L Cannula 07/26 0731 98.7 111 20 140/78 96 Nasal 3.0L Cannula 07/26 0038 98.5 119 20 120/60 96 Nasal 3.0L Cannula 07/26 0000 97 Nasal 4.0L Cannula 07/25 2220 130 07/25 220 130 120/60 07/25 215 99.7 24 120/60 97 Nasal 3.0L Cannula 07/25 1546 97.9 129 24 160/80 95 07/25 1325 120 160/90 07/25 1325 121 160/90 Intake & Output 07/26 1600 07/26 0800 07/26 0000 07/25 1600 07/25 0807/25 0000 Intake Total 600 660 600 800 Output Total 100 350 570 550 220 650 Balance -100 250 90 50 580 -650 Intake, IV 600 600 600 600 Intake, Oral 60 200 Output, Urine 100 350 570 550 220 650 Physical Exam: Gen: AAOx3 in NAD Cor: S1+S2+ Lungs: CTA codey Abd: soft, NT, ND, +BS x4. Incision to abdomen C/D/I with steristrips. No drainage or surrounding erythema identified. Ext: no edema or calf tenderness to codey lower extremities. Palpable DP pulses codey. Feet warm. Current Medications: Current Medications Sig/Fatemeh Start time Last Medication Dose Route Stop Time Status Admin Benzocaine/Menthol 1 RHETT Q2-3 HRS NEEDED.. 07/24 744 AC 07/24 PO 50 Carvedilol 6.25 MG BID 07/23 2199 AC 07/26 PO 923 Cilostazol 100 MG BID 07/23 2199 AC 07/26 PO 923 Dextrose/Sodium 1,000 ML CONTINOUS INFUSION 07/24 2325 AC 07/26 Chloride IV 0040 Heparin Sodium 5,000 UNIT Q8 07/25 2199 AC 07/26 (Porcine) SC 0611 Insulin Aspart 0 Q4 07/26 1000 AC 07/26 SC 1048 Insulin Human Regular 0 Q6 07/24 2359 DC 07/26 SC 0605 Losartan Potassium 25 MG DAILY 07/24 1000 AC 07/26 PO 0924 Meclizine HCl 12.5 MG TID 07/23 1600 AC 07/26 PO 0924 Metoclopramide HCl 20 MG BID 07/23 2200 AC 07/26 PO 0927 Morphine Sulfate 2 MG Q3P PRN 07/23 1730 AC 07/25 IV 2100 Oxycodone/ 1 TAB Q4P PRN 07/23 1730 AC 07/24 Acetaminophen PO 1507 Oxycodone/ 2 TAB Q4P PRN 07/23 1730 AC Acetaminophen PO Pantoprazole Sodium 40 MG DAILY 07/24 2215 AC 07/26 IV 0925 Patient Medication 1 ED ONE ONE 07/25 1400 DC Teaching ED 07/25 1401 Phosphate 250 MG PC AND AT BEDTIME 07/25 0900 AC 07/25 PO 2204 Potassium Phosphate 15 mMol ONE ONE 07/25 1230 DC 07/25 Dextrose/Water 250 ML IV 07/25 1633 1425 Tamsulosin HCl 0.4 MG DAILY 07/23 1445 AC 07/26 PO 0924 Results Last 48 Hours of Labs: Laboratory Tests 07/26 07/25 0650 1900 Blood Gas pH (7.35 - 7.45 PH) 7.44 pCO2 (35 - 45 TORR) 24 L pO2 (80 - 100 TORR) 92 HCO3 (21 - 28 MEQ/L) 16 L ABG O2 Sat (Measured) (>96.0 %) 95.0 L P-50 (Temp Corrected) N Carboxyhemoglobin (1.5 - 5.0 %) 0.3 L O2 Concentration % 3L Temperature (97.0 - 100.0 FARH) 97.9 O2 Delivery Method N/C Chemistry Sodium (137 - 145 mmol/L) 140 Potassium (3.5 - 5.1 mmol/L) 4.1 Chloride (98 - 107 mmol/L) 114 H Carbon Dioxide (22 - 30 mmol/L) 18 L Anion Gap (5 - 16) 8 BUN (9 - 20 mg/dL) 34 H Creatinine (0.7 - 1.2 mg/dL) 2.2 H Estimated GFR (>60 ml/min) 28 L BUN/Creatinine Ratio (7 - 25 %) 15.5 Glucose (65 - 99 mg/dL) 250 H Phosphorus (2.5 - 4.5 mg/dL) 2.6 Magnesium (1.6 - 2.3 mg/dL) 1.9 Zmt-[id number]-Qehbvgavfdd Pept (<125 pg/mL) 728 H Hematology CBC w Diff NO MAN DIFF REQ WBC (4.8 - 10.8 /CUMM) 10.0 RBC (4.70 - 6.10 /CUMM) 2.52 L Hgb (14.0 - 18.0 G/DL) 8.1 L Hct (42 - 52 %) 24.1 L MCV (80.0 - 94.0 FL) 95.5 H MCH (27.0 - 31.0 PG) 31.9 H RDW (11.5 - 14.5 %) 14.5 Plt Count (130 - 400 /CUMM) 99 L MPV (7.4 - 10.4 FL) 8.8 Gran % (42.2 - 75.2 %) 77.8 H Lymphocytes % (20.5 - 51.1 %) 10.3 L Monocytes % (1.7 - 9.3 %) 9.8 H Eosinophils % (0 - 5 %) 1.9 Basophils % (0.0 - 2.0 %) 0.2 Absolute Granulocytes (1.4 - 6.5 /CUMM) 7.8 H Absolute Lymphocytes (1.2 - 3.4 /CUMM) 1.0 L Absolute Monocytes (0.10 - 0.60 /CUMM) 1.0 H Absolute Eosinophils (0.0 - 0.7 /CUMM) 0.2 Absolute Basophils (0.0 - 0.2 /CUMM) 0 PUBS MCHC (33.0 - 37.0 G/DL) 33.4 Miscellaneous Phlebotomy Draw Site RIGHT BRACHIAL 07/25 07/25 07/25 07/24 1222 0740 0116 2220 Chemistry Sodium (137 - 145 mmol/L) 142 Potassium (3.5 - 5.1 mmol/L) 3.9 Chloride (98 - 107 mmol/L) 114 H Carbon Dioxide (22 - 30 mmol/L) 20 L Anion Gap (5 - 16) 7 BUN (9 - 20 mg/dL) 38 H Creatinine (0.7 - 1.2 mg/dL) 2.4 H Estimated GFR (>60 ml/min) 26 L BUN/Creatinine Ratio (7 - 25 %) 15.8 Glucose (65 - 99 mg/dL) 143 H Magnesium (1.6 - 2.3 mg/dL) 2.1 Troponin I (<0.11 ng/ml) 0.03 Coagulation D-Dimer (70 - 232 ng/ml) 3315 H Hematology CBC w Diff NO MAN DIFF REQ WBC (4.8 - 10.8 /CUMM) 10.2 RBC (4.70 - 6.10 /CUMM) 2.91 L Hgb (14.0 - 18.0 G/DL) 9.3 L Hct (42 - 52 %) 27.8 L MCV (80.0 - 94.0 FL) 95.3 H MCH (27.0 - 31.0 PG) 31.8 H RDW (11.5 - 14.5 %) 14.3 Plt Count (130 - 400 /CUMM) 103 L MPV (7.4 - 10.4 FL) 8.7 Gran % (42.2 - 75.2 %) 71.4 Lymphocytes % (20.5 - 51.1 %) 15.1 L Monocytes % (1.7 - 9.3 %) 13.0 H Eosinophils % (0 - 5 %) 0.3 Basophils % (0.0 - 2.0 %) 0.2 Absolute Granulocytes (1.4 - 6.5 /CUMM) 7.3 H Absolute Lymphocytes (1.2 - 3.4 /CUMM) 1.5 Absolute Monocytes (0.10 - 0.60 /CUMM) 1.3 H Absolute Eosinophils (0.0 - 0.7 /CUMM) 0 Absolute Basophils (0.0 - 0.2 /CUMM) 0 PUBS MCHC (33.0 - 37.0 G/DL) 33.3 03/08 2220 Chemistry Sodium (137 - 145 mmol/L) 141 Potassium (3.5 - 5.1 mmol/L) 4.0 Chloride (98 - 107 mmol/L) 109 H Carbon Dioxide (22 - 30 mmol/L) 20 L Anion Gap (5 - 16) 12 BUN (9 - 20 mg/dL) 28 H Creatinine (0.7 - 1.2 mg/dL) 2.1 H Estimated GFR (>60 ml/min) 30 L BUN/Creatinine Ratio (7 - 25 %) 13.3 Calcium (8.4 - 10.2 mg/dL) 8.1 L Phosphorus (2.5 - 4.5 mg/dL) 1.5 L Magnesium (1.6 - 2.3 mg/dL) 2.1 Hematology CBC w Diff NO MAN DIFF REQ WBC (4.8 - 10.8 /CUMM) 9.1 RBC (4.70 - 6.10 /CUMM) 3.32 L Hgb (14.0 - 18.0 G/DL) 10.4 L Hct (42 - 52 %) 31.3 L MCV (80.0 - 94.0 FL) 94.3 H MCH (27.0 - 31.0 PG) 31.4 H RDW (11.5 - 14.5 %) 13.8 Plt Count (130 - 400 /CUMM) 114 L MPV (7.4 - 10.4 FL) 8.5 Gran % (42.2 - 75.2 %) 74.6 Lymphocytes % (20.5 - 51.1 %) 9.9 L Monocytes % (1.7 - 9.3 %) 14.3 H Eosinophils % (0 - 5 %) 1.0 Basophils % (0.0 - 2.0 %) 0.2 Absolute Granulocytes (1.4 - 6.5 /CUMM) 6.8 H Absolute Lymphocytes (1.2 - 3.4 /CUMM) 0.9 L Absolute Monocytes (0.10 - 0.60 /CUMM) 1.3 H Absolute Eosinophils (0.0 - 0.7 /CUMM) 0.1 Absolute Basophils (0.0 - 0.2 /CUMM) 0 PUBS MCHC (33.0 - 37.0 G/DL) 33.3 Assessment/Plan Assessment/Plan A: POD #3 s/p repair of large left inguinal hernia with mesh. [place] removed yesterday from scrotum. Remains tachycardic. Episodes of hematemesis per medicine service reports. Plan: Appreciate medicine recommendations. OOB and ambulate as tolerated. Await increase in bowel function. Remains NPO at the moment. ?carafate. Continue PPI IV. F/U multiview today. FSBG now elevated to 250s on average. Will follow up endocrinology recommendations. Core Measures/Miscellaneous Venous Thromboembolism VTE Risk Factors: Age > 40, Surgery VTE Contraindications: No Contraindications VTE Diagnosis: No VTE Type: NONE VTE Confirmed by (Test): NONE Beta Maciej Is Beta Maciej a Home Med? Yes Antibiotics Is Patient on Antibiotics? Yes If Yes: prophylaxis
--- NOTE | 2016-07-26 12:03 | PN- Att Addend ---
Attending Addendum Attending Brief Note Attending Brief Note Patient seen and examined. Plan of care discussed with the medical team and the patient. Available lab work and radiology test reports were reviewed. Patient lying comfortably in bed. He does not appear to be tachypneic. His friend is at the bedside. Patient complains of coughing and mild difficulty breathing. Vital Signs Date Time Temp Pulse Resp B/P Pulse O2 O2 Flow FiO2 Ox Delivery Rate 07/27 923 112 132/82 07/27 923 112 132/82 07/26 0824 112 132/82 07/26 08 96 Nasal 3.0L Cannula 07/26 0731 98.7 111 20 140/78 96 Nasal 3.0L Cannula 07/26 0038 98.5 119 20 120/60 96 Nasal 3.0L Cannula 07/26 0000 97 Nasal 4.0L Cannula 07/25 2220 130 07/25 2204 130 120/60 07/25 2157 99.7 24 120/60 97 Nasal 3.0L Cannula 07/25 1546 97.9 129 24 160/80 95 07/25 1325 120 160/90 07/25 1325 121 160/90 Intake & Output 07/26 1600 07/26 0800 07/26 0000 Intake Total 600 660 Output Total 100 350 570 Balance -100 250 90 Intake, IV 600 600 Intake, Oral 60 Output, Urine 100 350 570 Exam: General: Patient awake but lethargic CVS: S1 plus S2 without any murmur or gallops Chest: Few scattered crepitation without any wheeze. There is no respiratory distress. Abdomen: Soft with sluggish bowel sounds, surgical dressing in place over the left inguinal area. CAR PILOT: Awake but lethargic and oriented without any focal neuro deficit and follows command appropriately Extremities: No edema; no clubbing or cyanosis noted Laboratory Tests 07/26 07/25 0650 1900 Blood Gas pH (7.35 - 7.45 PH) 7.44 pCO2 (35 - 45 TORR) 24 L pO2 (80 - 100 TORR) 92 HCO3 (21 - 28 MEQ/L) 16 L ABG O2 Sat (Measured) (>96.0 %) 95.0 L P-50 (Temp Corrected) N Carboxyhemoglobin (1.5 - 5.0 %) 0.3 L O2 Concentration % 3L Temperature (97.0 - 100.0 FARH) 97.9 O2 Delivery Method N/C Chemistry Sodium (137 - 145 mmol/L) 140 Potassium (3.5 - 5.1 mmol/L) 4.1 Chloride (98 - 107 mmol/L) 114 H Carbon Dioxide (22 - 30 mmol/L) 18 L Anion Gap (5 - 16) 8 BUN (9 - 20 mg/dL) 34 H Creatinine (0.7 - 1.2 mg/dL) 2.2 H Estimated GFR (>60 ml/min) 28 L BUN/Creatinine Ratio (7 - 25 %) 15.5 Glucose (65 - 99 mg/dL) 250 H Phosphorus (2.5 - 4.5 mg/dL) 2.6 Magnesium (1.6 - 2.3 mg/dL) 1.9 Umg-G-Rgrtpnrmved Pept (<125 pg/mL) 728 H Hematology CBC w Diff NO MAN DIFF REQ WBC (4.8 - 10.8 /CUMM) 10.0 RBC (4.70 - 6.10 /CUMM) 2.52 L Hgb (14.0 - 18.0 G/DL) 8.1 L Hct (42 - 52 %) 24.1 L MCV (80.0 - 94.0 FL) 95.5 H MCH (27.0 - 31.0 PG) 31.9 H RDW (11.5 - 14.5 %) 14.5 Plt Count (130 - 400 /CUMM) 99 L MPV (7.4 - 10.4 FL) 8.8 Gran % (42.2 - 75.2 %) 77.8 H Lymphocytes % (20.5 - 51.1 %) 10.3 L Monocytes % (1.7 - 9.3 %) 9.8 H Eosinophils % (0 - 5 %) 1.9 Basophils % (0.0 - 2.0 %) 0.2 Absolute Granulocytes (1.4 - 6.5 /CUMM) 7.8 H Absolute Lymphocytes (1.2 - 3.4 /CUMM) 1.0 L Absolute Monocytes (0.10 - 0.60 /CUMM) 1.0 H Absolute Eosinophils (0.0 - 0.7 /CUMM) 0.2 Absolute Basophils (0.0 - 0.2 /CUMM) 0 PUBS MCHC (33.0 - 37.0 G/DL) 33.4 Miscellaneous Phlebotomy Draw Site RIGHT BRACHIAL 07/25 1222 Chemistry Glucose (65 - 99 mg/dL) 143 H VQ scan done yesterday showed low probability for pulmonary embolism Assessment plan * Sinus tachycardia- 2 troponin werenegative, other differential could include pulmonary embolism which was ruled out by VQ scan. Possible dehydration. Other differential could include pain. * Shorts of breath and hypoxia- patient currently not hypoxic on the exam shows slight elevation in JVD no clear pulmonary edema is noted on chest x-ray. VQ scan was low probability; no clear evidence of CHF given his BNP level is 728. * Left Hernia repair * Upper GI bleed * Hematuria- now resolving * Chronic renal failure * Hyporglycemia- improved * Acute and chronic renal failure with increasing creatinine 2.4 * Thrombocytopenia- likely chronic * Hypophosphatemia Plan * Continue IV fluids with D5W half normal saline; can stop fluid when patient able to take by mouth * Continue Cozaar and carvedilol; the patient is tachycardic may need to increase carvedilol * Control pain adequately * Continue IV Protonix * Obtain GI consult for hematemesis * Continue subcutaneous heparin for DVT prophylaxis * Continue Accu-Chek monitoring * Recheck phosphorus level tomorrow
--- NOTE | 2016-07-26 14:07 | RADIOLOGY REPORT ---
EXAMINATION: XR ABDOMEN MULTIPLE VIEWS CLINICAL INDICATION: Emesis status post hernia repair. Evaluate for ileus. COMPARISON: 07/24/2016. TECHNIQUE: Abdomen radiographs, 2 views FINDINGS: Linear streak of atelectasis in the retrocardiac region of the left lower lobe. Bowel gas pattern is normal. Gas is seen within the colon to level the rectum. No pneumoperitoneum. No pathologic calcifications within the abdomen. Several phleboliths are present within the lower pelvis. There is multilevel disc degeneration with osteophyte formation of the examined spine. IMPRESSION: No acute findings. No evidence of bowel obstruction or ileus.
[2016-07-26 14:26] VITALS: BP 150/60
--- NOTE | 2016-07-26 16:44 | PN- Diabetes ---
Assessment/Plan Assessment: 89-year-old male with a past medical history of hypertension, GERD, diabetes mellitus, peripheral vascular disease, CKD Stage III, BPH who was admitted to [facility] on 07/23/2016 for an elective open repair of the left inguinal hernia.Patient still feels nausea and has been kept NPO. He is on D51/2 NS at 75 ml/hour. He is on RISS coverage every 6 hours. his FSGs were 140, 99, 123, 157, 214, 294 and 267. His Cr is 2.4 . Plan: 1. stop RISS every 6 hours; 2. start Novolog coverage every 4 hours---detail see the inpatient DM order; 3. monitor FSGs , electrolytes and renal function. will follow. Inpatient Diabetes Orders Every 4 Hours: Bolus Insulin: Novolog < 80 mg/dl: no coverage 80-100 mg/dl: no coverage 101-120 mg/dl: no coverage 121-150 mg/dl: 2 units 151-200 mg/dl: 3 units 201-250 mg/dl: 4 units 251-300 mg/dl: 5 units 301-350 mg/dl: 6 units 351-400 mg/dl: 7 units > 400 mg/dl: 8 units Subjective Subjective: He feels better this morning Objective Last 24 Hrs of Vital Signs/I&O Vital Signs Date Time Temp Pulse Resp B/P Pulse O2 O2 Flow FiO2 Ox Delivery Rate 07/26 1426 97.0 100 20 150/60 97 Nasal 3.0L Cannula 07/27 923 112 132/82 07/26 0824 112 132/82 07/26 0924 112 132/82 07/26 08 96 Nasal 3.0L Cannula 07/26 0731 98.7 111 20 140/78 96 Nasal 3.0L Cannula 07/26 0038 98.5 119 20 120/60 96 Nasal 3.0L Cannula 07/26 0000 97 Nasal 4.0L Cannula 07/25 2220 130 07/25 2204 130 120/60 07/25 2157 99.7 24 120/60 97 Nasal 3.0L Cannula Intake & Output 07/26 1600 07/26 0800 07/26 0000 Intake Total 600 600 660 Output Total 700 350 570 Balance -100 250 90 Intake, IV 600 600 600 Intake, Oral 60 Output, Urine 700 350 570 Findings Pertinent Lab/Bret Results: Laboratory Tests 07/26 07/25 0650 1900 Blood Gas pH (7.35 - 7.45 PH) 7.44 pCO2 (35 - 45 TORR) 24 L pO2 (80 - 100 TORR) 92 HCO3 (21 - 28 MEQ/L) 16 L ABG O2 Sat (Measured) (>96.0 %) 95.0 L P-50 (Temp Corrected) N Carboxyhemoglobin (1.5 - 5.0 %) 0.3 L O2 Concentration % 3L Temperature (97.0 - 100.0 FARH) 97.9 O2 Delivery Method N/C Chemistry Sodium (137 - 145 mmol/L) 140 Potassium (3.5 - 5.1 mmol/L) 4.1 Chloride (98 - 107 mmol/L) 114 H Carbon Dioxide (22 - 30 mmol/L) 18 L Anion Gap (5 - 16) 8 BUN (9 - 20 mg/dL) 34 H Creatinine (0.7 - 1.2 mg/dL) 2.2 H Estimated GFR (>60 ml/min) 28 L BUN/Creatinine Ratio (7 - 25 %) 15.5 Glucose (65 - 99 mg/dL) 250 H Phosphorus (2.5 - 4.5 mg/dL) 2.6 Magnesium (1.6 - 2.3 mg/dL) 1.9 Lyj-T-Tgsiwbmrliq Pept (<125 pg/mL) 728 H Hematology CBC w Diff NO MAN DIFF REQ WBC (4.8 - 10.8 /CUMM) 10.0 RBC (4.70 - 6.10 /CUMM) 2.52 L Hgb (14.0 - 18.0 G/DL) 8.1 L Hct (42 - 52 %) 24.1 L MCV (80.0 - 94.0 FL) 95.5 H MCH (27.0 - 31.0 PG) 31.9 H RDW (11.5 - 14.5 %) 14.5 Plt Count (130 - 400 /CUMM) 99 L MPV (7.4 - 10.4 FL) 8.8 Gran % (42.2 - 75.2 %) 77.8 H Lymphocytes % (20.5 - 51.1 %) 10.3 L Monocytes % (1.7 - 9.3 %) 9.8 H Eosinophils % (0 - 5 %) 1.9 Basophils % (0.0 - 2.0 %) 0.2 Absolute Granulocytes (1.4 - 6.5 /CUMM) 7.8 H Absolute Lymphocytes (1.2 - 3.4 /CUMM) 1.0 L Absolute Monocytes (0.10 - 0.60 /CUMM) 1.0 H Absolute Eosinophils (0.0 - 0.7 /CUMM) 0.2 Absolute Basophils (0.0 - 0.2 /CUMM) 0 PUBS MCHC (33.0 - 37.0 G/DL) 33.4 Miscellaneous Phlebotomy Draw Site RIGHT BRACHIAL
[2016-07-26 22:48] VITALS: BP 112/71
[2016-07-27 06:54] VITALS: BP 118/60; BP 148/72
[2016-07-27 08:48] LABS: ABSOLUTE BASOPHIL COUNT 0 /CUMM (0.0-0.2); ABSOLUTE EOSINOPHIL COUNT 0.6 /CUMM (0.0-0.7); ABSOLUTE GRANULOCYTE CT 5.8 /CUMM (1.4-6.5); ABSOLUTE MONOCYTE COUNT 0.9 /CUMM (0.10-0.60); BASOPHIL % 0.2 % (0.0-2.0); EOSINOPHIL % 6.8 % (0-5); GRANULOCYTE % 61.8 % (42.2-75.2); HEMATOCRIT 22.6 % (42-52); MEAN CORPUSCULAR HGB 31.7 PG (27.0-31.0); MEAN CORPUSCULAR HGB CONC 33.1 G/DL (33.0-37.0); MEAN PLATELET VOLUME 9.6 FL (7.4-10.4); RBC DISTRIBUTION WIDTH 14.4 % (11.5-14.5); RED BLOOD CELL CT 2.36 /CUMM (4.70-6.10); WHITE BLOOD CELL COUNT 9.4 /CUMM (4.8-10.8)
[2016-07-27 10:04] LABS: PLATELET COUNT 84 /CUMM (130-400)
--- NOTE | 2016-07-27 10:40 | PN- Att Addend ---
Attending Addendum Attending Brief Note Patient seen and examined. Plan of care discussed with the medical team and the patient. Available lab work and radiology test reports were reviewed. Patient sitting in chair this morning comfortably. He does not appear to be tachypneic. His friend is at the bedside. Patient complains of coughing and mild difficulty breathing. He complains of for posterior headache this morning. Denies any nausea vomiting or blurred vision. Vital Signs Date Time Temp Pulse Resp B/P Pulse O2 O2 Flow FiO2 Ox Delivery Rate 07/27 0947 114 130/60 07/27 0945 114 130/60 07/27 0654 98.5 83 18 118/60 95 Nasal Cannula 07/27 0000 98 Nasal 3.0L Cannula 07/26 2248 98.3 106 20 112/71 98 Nasal Cannula 07/26 2127 109 110/60 07/26 1426 97.0 100 20 150/60 97 Nasal 3.0L Cannula Intake & Output 07/27 1600 07/27 0800 07/27 0000 Intake Total 850 300 Output Total 300 150 Balance 550 150 Intake, IV 600 Intake, Oral 250 300 Output, Urine 300 150 Exam: General: Patient awake but lethargic CVS: S1 plus S2 without any murmur or gallops Chest: Few scattered crepitation without any wheeze. There is no respiratory distress. Abdomen: Soft with sluggish bowel sounds, surgical dressing in place over the left inguinal area. Abdomen appeared distended. MIME ARTIST: Awake but lethargic and oriented without any focal neuro deficit and follows command appropriately Extremities: No edema; no clubbing or cyanosis noted Laboratory Tests 07/27 0720 Chemistry Sodium (137 - 145 mmol/L) 143 Potassium (3.5 - 5.1 mmol/L) 4.1 Chloride (98 - 107 mmol/L) 114 H Carbon Dioxide (22 - 30 mmol/L) 20 L Anion Gap (5 - 16) 9 BUN (9 - 20 mg/dL) 29 H Creatinine (0.7 - 1.2 mg/dL) 2.3 H Estimated GFR (>60 ml/min) 27 L BUN/Creatinine Ratio (7 - 25 %) 12.6 Hematology CBC w Diff NO MAN DIFF REQ WBC (4.8 - 10.8 /CUMM) 9.4 RBC (4.70 - 6.10 /CUMM) 2.36 L Hgb (14.0 - 18.0 G/DL) 7.5 L Hct (42 - 52 %) 22.6 L MCV (80.0 - 94.0 FL) 96.0 H MCH (27.0 - 31.0 PG) 31.7 H RDW (11.5 - 14.5 %) 14.4 Plt Count (130 - 400 /CUMM) 84 L MPV (7.4 - 10.4 FL) 9.6 Gran % (42.2 - 75.2 %) 61.8 Lymphocytes % (20.5 - 51.1 %) 21.5 Monocytes % (1.7 - 9.3 %) 9.7 H Eosinophils % (0 - 5 %) 6.8 H Basophils % (0.0 - 2.0 %) 0.2 Absolute Granulocytes (1.4 - 6.5 /CUMM) 5.8 Absolute Lymphocytes (1.2 - 3.4 /CUMM) 2.0 Absolute Monocytes (0.10 - 0.60 /CUMM) 0.9 H Absolute Eosinophils (0.0 - 0.7 /CUMM) 0.6 Absolute Basophils (0.0 - 0.2 /CUMM) 0 PUBS MCHC (33.0 - 37.0 G/DL) 33.1 Abdominal x-ray done yesterday did not show any acute process . Assessment plan * Sinus tachycardia- 2 troponin werenegative, other differential could include pulmonary embolism which was ruled out by VQ scan. Possible dehydration. Other differential could include pain. * Shorts of breath and hypoxia- patient currently not hypoxic on the exam shows slight elevation in JVD no clear pulmonary edema is noted on chest x-ray. VQ scan was low probability; no clear evidence of CHF given his BNP level is 728. * Left Hernia repair * Upper GI bleed * Hematuria- now resolving * Chronic renal failure * Hyporglycemia- improved * Acute and chronic renal failure with increasing creatinine 2.4 * Thrombocytopenia- likely chronic * Hypophosphatemia * Posterior headache Plan * Continue IV fluids with D5W half normal saline; can stop fluid when patient able to take by mouth * Continue Cozaar and carvedilol; the patient is tachycardic may need to increase carvedilol * Control pain adequately * Continue IV Protonix * Patient has progressively dropped his hematocrit from 31-22.6. Check guaiac stool and Obtain GI consult for hematemesis * Continue subcutaneous heparin for DVT prophylaxis * Continue Accu-Chek monitoring * Encouraged patient to use incentive spirometer
--- NOTE | 2016-07-27 10:44 | PN- Diabetes ---
Assessment/Plan Assessment: 89-year-old male with a past medical history of hypertension, GERD, diabetes mellitus, peripheral vascular disease, CKD Stage III, BPH who was admitted to [facility] on 07/23/2016 for an elective open repair of the left inguinal hernia. He is on D51/2 NS at 75 ml/hour. He was put on clear liquid diet. As per nurse, he ate well for breakfast. His FSGs were 243, 190, 203, 169, 115, 156 and 342. Plan: 1. recommend discontinue IVF; 2. stop NISS coverage every 4 hours; 3. start Novolog coverage before meals and Novolog coverage at bedtime--detail see the inpatientDM orders; 4. monitor FSGs. will follow. Inpatient Diabetes Orders Before Each Meal: Bolus Insulin: Novolog < 80 mg/dl: no coverage 80-100 mg/dl: 3 units 101-120 mg/dl: 3 units 121-150 mg/dl: 3 units 151-200 mg/dl: 4 units 201-250 mg/dl: 6 units 251-300 mg/dl: 8 units 301-350 mg/dl: 9 units 351-400 mg/dl: 10 units > 400 mg/dl: 12 units Bedtime: Bolus Insulin: Novolog < 80 mg/dl: no coverage 80-100 mg/dl: no coverage 101-120 mg/dl: no coverage 121-150 mg/dl: no coverage 151-200 mg/dl: no coverage 201-250 mg/dl: no coverage 251-300 mg/dl: 2 units 301-350 mg/dl: 3 units 351-400 mg/dl: 4 units > 400 mg/dl: 5 units Subjective Subjective: He tolerated breakfast well. After breakfast, his glucose level was up to 342. Objective Last 24 Hrs of Vital Signs/I&O Vital Signs Date Time Temp Pulse Resp B/P Pulse O2 O2 Flow FiO2 Ox Delivery Rate 07/27 0947 114 130/60 07/27 0945 114 130/60 07/27 0654 98.5 83 18 118/60 95 Nasal Cannula 07/27 0000 98 Nasal 3.0L Cannula 07/268 98.3 106 20 112/71 98 Nasal Cannula 07/267 109 110/60 07/26 1426 97.0 100 20 150/60 97 Nasal 3.0L Cannula Intake & Output 07/27 1600 07/27 0800 07/27 0000 Intake Total 850 300 Output Total 300 150 Balance 550 150 Intake, IV 600 Intake, Oral 250 300 Output, Urine 300 150 Findings Pertinent Lab/Bret Results: Laboratory Tests 07/27 0720 Chemistry Sodium (137 - 145 mmol/L) 143 Potassium (3.5 - 5.1 mmol/L) 4.1 Chloride (98 - 107 mmol/L) 114 H Carbon Dioxide (22 - 30 mmol/L) 20 L Anion Gap (5 - 16) 9 BUN (9 - 20 mg/dL) 29 H Creatinine (0.7 - 1.2 mg/dL) 2.3 H Estimated GFR (>60 ml/min) 27 L BUN/Creatinine Ratio (7 - 25 %) 12.6 Hematology CBC w Diff NO MAN DIFF REQ WBC (4.8 - 10.8 /CUMM) 9.4 RBC (4.70 - 6.10 /CUMM) 2.36 L Hgb (14.0 - 18.0 G/DL) 7.5 L Hct (42 - 52 %) 22.6 L MCV (80.0 - 94.0 FL) 96.0 H MCH (27.0 - 31.0 PG) 31.7 H RDW (11.5 - 14.5 %) 14.4 Plt Count (130 - 400 /CUMM) 84 L MPV (7.4 - 10.4 FL) 9.6 Gran % (42.2 - 75.2 %) 61.8 Lymphocytes % (20.5 - 51.1 %) 21.5 Monocytes % (1.7 - 9.3 %) 9.7 H Eosinophils % (0 - 5 %) 6.8 H Basophils % (0.0 - 2.0 %) 0.2 Absolute Granulocytes (1.4 - 6.5 /CUMM) 5.8 Absolute Lymphocytes (1.2 - 3.4 /CUMM) 2.0 Absolute Monocytes (0.10 - 0.60 /CUMM) 0.9 H Absolute Eosinophils (0.0 - 0.7 /CUMM) 0.6 Absolute Basophils (0.0 - 0.2 /CUMM) 0 PUBS MCHC (33.0 - 37.0 G/DL) 33.1
--- NOTE | 2016-07-27 11:25 | PN- General Surgery ---
See Addendum Subjective Subjective: Family at bedside. Resting in bed. Voiding spontaneously. Remains on nasal cannula (3L). Passing flatus, no BMs yet. Attempts made at weaning oxygen earlier this morning. Objective Vital Signs and I&Os Vital Signs Date Time Temp Pulse Resp B/P Pulse O2 O2 Flow FiO2 Ox Delivery Rate 07/27 0947 114 130/60 07/27 0945 114 130/60 07/27 0654 98.5 83 18 118/60 95 Nasal Cannula 07/27 0000 98 Nasal 3.0L Cannula 07/26 2248 98.3 106 20 112/71 98 Nasal Cannula 07/26 2127 109 110/60 07/26 1426 97.0 100 20 150/60 97 Nasal 3.0L Cannula Intake & Output 07/27 1600 07/27 0807/27 0000 07/26 1600 07/26 0807/26 0000 Intake Total 850 300 600 600 660 Output Total 300 150 700 350 570 Balance 550 150 -100 250 90 Intake, IV 600 600 600 600 Intake, Oral 250 300 60 Output, Urine 300 150 700 350 570 Physical Exam: Gen: AAOx3 in NAD Cor: S1+S2+ Lungs: CTA codey Abd: soft, NT, ND, +BS x4. Incision C/D/I with steristrips. No drainage or erythema noted. Ext: no edema or calf tenderness to codey lower extremities. Results Last 48 Hours of Labs: Laboratory Tests 07/27 07/26 0720 0650 Chemistry Sodium (137 - 145 mmol/L) 143 140 Potassium (3.5 - 5.1 mmol/L) 4.1 4.1 Chloride (98 - 107 mmol/L) 114 H 114 H Carbon Dioxide (22 - 30 mmol/L) 20 L 18 L Anion Gap (5 - 16) 9 8 BUN (9 - 20 mg/dL) 29 H 34 H Creatinine (0.7 - 1.2 mg/dL) 2.3 H 2.2 H Estimated GFR (>60 ml/min) 27 L 28 L BUN/Creatinine Ratio (7 - 25 %) 12.6 15.5 Glucose (65 - 99 mg/dL) 250 H Phosphorus (2.5 - 4.5 mg/dL) 2.6 Magnesium (1.6 - 2.3 mg/dL) 1.9 Abq-[id number] Pept (<125 pg/mL) 728 H Hematology CBC w Diff NO MAN DIFF REQ NO MAN DIFF REQ WBC (4.8 - 10.8 /CUMM) 9.4 10.0 RBC (4.70 - 6.10 /CUMM) 2.36 L 2.52 L Hgb (14.0 - 18.0 G/DL) 7.5 L 8.1 L Hct (42 - 52 %) 22.6 L 24.1 L MCV (80.0 - 94.0 FL) 96.0 H 95.5 H MCH (27.0 - 31.0 PG) 31.7 H 31.9 H RDW (11.5 - 14.5 %) 14.4 14.5 Plt Count (130 - 400 /CUMM) 84 L 99 L MPV (7.4 - 10.4 FL) 9.6 8.8 Gran % (42.2 - 75.2 %) 61.8 77.8 H Lymphocytes % (20.5 - 51.1 %) 21.5 10.3 L Monocytes % (1.7 - 9.3 %) 9.7 H 9.8 H Eosinophils % (0 - 5 %) 6.8 H 1.9 Basophils % (0.0 - 2.0 %) 0.2 0.2 Absolute Granulocytes (1.4 - 6.5 /CUMM) 5.8 7.8 H Absolute Lymphocytes (1.2 - 3.4 /CUMM) 2.0 1.0 L Absolute Monocytes (0.10 - 0.60 /CUMM) 0.9 H 1.0 H Absolute Eosinophils (0.0 - 0.7 /CUMM) 0.6 0.2 Absolute Basophils (0.0 - 0.2 /CUMM) 0 0 PUBS MCHC (33.0 - 37.0 G/DL) 33.1 33.4 07/25 07/25 1900 1222 Blood Gas pH (7.35 - 7.45 PH) 7.44 pCO2 (35 - 45 TORR) 24 L pO2 (80 - 100 TORR) 92 HCO3 (21 - 28 MEQ/L) 16 L ABG O2 Sat (Measured) (>96.0 %) 95.0 L P-50 (Temp Corrected) N Carboxyhemoglobin (1.5 - 5.0 %) 0.3 L O2 Concentration % 3L Temperature (97.0 - 100.0 FARH) 97.9 O2 Delivery Method N/C Chemistry Glucose (65 - 99 mg/dL) 143 H Miscellaneous Phlebotomy Draw Site RIGHT BRACHIAL Assessment/Plan Assessment/Plan A: POD #4 s/p left inguinal hernia repair (large defect). Hospital course complicated by hypoxic respiratory failure followed by the medical team (VQ scan negative, BNP 700s) remaining on nasal cannula. Has precipitous drop in H/H. No overt GI source at this point. Plan: Continue PPI Will transfuse 1u prbc. PT/OT to continue. wean nasal cannula if feasible. STR likely upon discharge. Core Measures/Miscellaneous Venous Thromboembolism VTE Risk Factors: Age > 40, Surgery VTE Contraindications: No Contraindications VTE Diagnosis: No VTE Type: NONE VTE Confirmed by (Test): NONE Beta Maciej Is Beta Maciej a Home Med? Yes Antibiotics Is Patient on Antibiotics? Yes If Yes: prophylaxis
[2016-07-27 14:44] VITALS: BP 118/70
--- NOTE | 2016-07-27 17:30 | NUR ---
BLOOD TRANSFUSION COMPLETED. POST TRANSFUSION TEMP 100.1 AT [facility], CONFIRMED WITH [facility]. GREATER THAN TWO DEGREE CHANGE. BLOOD BANK CALLED AND NOTIFIED. DEVIN SKINNER NOTIFIED. BLOOD TRANSFUSION REACTION LABS AND URINE SENT. BLOOD TRANSFUSION BAG AND TUBES RETURNED TO LAB. BLOOD PRESSURE ELAVATED. PATIENT SHOULDER PAIN AND HEADACHE SINCE AM. WILL MONITOR.
--- NOTE | 2016-07-27 21:00 | NUR ---
NURSING NOTE: AT 1940 PT COMPLAINING OF 10/10 HEADACHE. PER PT, HEADACHE HAS BEEN PERSISTENT THROUGH ENTIRE DAY. PO PERCOCET GIVEN. AT 2029, PT CONTINUED TO COMPLAIN OF 10/10 HEADACHE. BP 162/90, HR 122. SURGICAL PA PAGED. PHONE ORDER FOR 2MG IV MORPHINE ONE TIME GIVEN BY JORGE LUIS BELTRAN. RN WILL CONTINUE TO MONITOR.
[2016-07-27 23:10] VITALS: BP 136/60
[2016-07-28 06:00] VITALS: BP 138/70
--- NOTE | 2016-07-28 07:55 | PN- General Surgery ---
See Addendum Subjective Subjective: Pt complaining of neck pain which began yesterday. Relieved with one dose morphine yesterday but today can't even move his head. Oriented and conversant but per RN and pts , he is much more somnolent today. Yesterday he was wide awake and joking around and today is talking but difficult to understand. Oriented at this time but pts states that he was blowing bubbles into his liquid this morning rather than drinking it. Objective Vital Signs and I&Os Vital Signs Date Time Temp Pulse Resp B/P Pulse O2 O2 Flow FiO2 Ox Delivery Rate 07/28 599 99.8 107 20 138/70 96 Nasal Cannula 07/28 0000 93 Nasal 1.5L Cannula 07/27 2310 120 136/60 07/27 2148 98.7 124 24 91 Nasal 1.0L Cannula 07/271 122 162/90 07/27 1444 98.9 100 22 118/70 97 07/27 0947 114 130/60 07/27 0945 114 130/60 07/27 0800 Room Air Intake & Output 07/28 0800 07/28 0000 07/27 1600 07/27 0800 07/27 0000 07/26 1600 Intake Total 250 850 100 850 300 600 Output Total 700 650 300 300 150 700 Balance -450 200 -200 550 150 -100 Intake, Blood 350 Product Intake, IV 600 600 Intake, Oral 250 500 100 250 300 Number 0 Bowel Movements Output, Urine 700 650 300 300 150 700 Physical Exam: Tmax 99.8 HR still tachy 105-120 bp stable sats good 96% General: conversant and oriented ENT: Pt is unable to turn his head or flex head due to pain, no point tenderness, explains pain as at the back of the neck Chest: clear anteriorly bilaterally, tachy, no murmurs/rubs Abd: softly distended, hypoactive bowel sounds but present Ext: warm, no edema, 5/5 JAVY BUE Assessment/Plan Assessment/Plan 89 yo male s/p L inguinal hernia repair pod 5 with multiple comorbidities tachycardia post op - medicine and cardiology following, will follow recommendations, ?med changes Increased lethargy/confusion - ?vitals stable, sats good, VQ low prob, continue dvt ppx Neck pain - Medical team to see, will follow recommendations, ?consider transfer of service Will make Dr Kauffman aware Tolerating diet, +BM - continue fulls for now Core Measures/Miscellaneous Venous Thromboembolism VTE Risk Factors: Age > 40, Surgery VTE Contraindications: No Contraindications VTE Diagnosis: No VTE Type: NONE VTE Confirmed by (Test): NONE Beta Maciej Is Beta Maciej a Home Med? Yes Antibiotics Is Patient on Antibiotics? Yes If Yes: prophylaxis
[2016-07-28 08:58] LABS: ABSOLUTE BASOPHIL COUNT 0 /CUMM (0.0-0.2); ABSOLUTE EOSINOPHIL COUNT 0.1 /CUMM (0.0-0.7); ABSOLUTE LYMPH COUNT 1.1 /CUMM (1.2-3.4); MEAN PLATELET VOLUME 9.2 FL (7.4-10.4)
[2016-07-28 09:10] LABS: ABSOLUTE GRANULOCYTE CT 6.6 /CUMM (1.4-6.5); ABSOLUTE MONOCYTE COUNT 1.1 /CUMM (0.10-0.60); BASOPHIL % 0.1 % (0.0-2.0); EOSINOPHIL % 0.7 % (0-5); GRANULOCYTE % 73.6 % (42.2-75.2); MEAN CORPUSCULAR HGB 31.1 PG (27.0-31.0); MEAN CORPUSCULAR VOLUME 94.4 FL (80.0-94.0); PLATELET COUNT 122 /CUMM (130-400); RBC DISTRIBUTION WIDTH 14.6 % (11.5-14.5)
[2016-07-28 09:16] LABS: HEMATOCRIT 29.6 % (42-52); RED BLOOD CELL CT 3.14 /CUMM (4.70-6.10)
--- NOTE | 2016-07-28 09:17 | PN- Diabetes ---
Assessment/Plan Assessment: 89-year-old male with a past medical history of hypertension, GERD, diabetes mellitus, peripheral vascular disease, CKD Stage III, BPH who was admitted to [facility] on 07/23/2016 for an elective open repair of the left inguinal hernia. He is on full liquid diet. Patient complained of having neck pain and received Lyrica and pain medication. He appears sleepy. He is on Novolog coverage before meals and Novolog coverage at bedtime. His FSGs were 311, 55, 68, 157, 200 and 275. Plan: 1. adjust Novolog coverage before meals--detail see the inpatient DM order; hold the Novolog meal coverage if patient skips meal or eats very little. 2. continue the current Novolog coverage at bedtime; 3. monitor FSGs. will follow. Inpatient Diabetes Orders Before Each Meal: Bolus Insulin: Novolog < 80 mg/dl: no coverage 80-100 mg/dl: 3 units 101-120 mg/dl: 3 units 121-150 mg/dl: 3 units 151-200 mg/dl: 4 units 201-250 mg/dl: 5 units 251-300 mg/dl: 6 units 301-350 mg/dl: 7 units 351-400 mg/dl: 8 units > 400 mg/dl: 9 units Subjective Subjective: He appears sleepy this morning. Objective Last 24 Hrs of Vital Signs/I&O Vital Signs Date Time Temp Pulse Resp B/P Pulse O2 O2 Flow FiO2 Ox Delivery Rate 07/28 0813 95 Nasal 1.0L Cannula 07/28 0600 99.8 107 20 138/70 96 Nasal Cannula 07/28 0000 93 Nasal 1.5L Cannula 07/27 2310 120 136/60 07/27 2148 98.7 124 24 91 Nasal 1.0L Cannula 07/27 2121 122 162/90 07/27 1444 98.9 100 22 118/70 97 07/27 0947 114 130/60 07/27 0945 114 130/60 Intake & Output 07/28 1600 07/28 0800 07/28 0000 Intake Total 250 850 Output Total 700 650 Balance -450 200 Intake, Blood 350 Product Intake, Oral 250 500 Number 0 Bowel Movements Output, Urine 700 650 Findings Pertinent Lab/Bret Results: Laboratory Tests 07/28 07/28 0659 0100 Chemistry Sodium Pending Potassium Pending Chloride Pending Carbon Dioxide Pending Anion Gap Pending BUN Pending Creatinine Pending BUN/Creatinine Ratio Pending Phosphorus Pending Magnesium Pending Coagulation APTT Cancelled Hematology CBC w Diff Pending WBC Pending RBC Pending Hgb Pending Hct Pending MCV Pending MCH Pending RDW Pending Plt Count Pending MPV Pending PUBS MCHC Pending
--- NOTE | 2016-07-28 10:48 | PN- Att Addend ---
Attending Addendum Attending Brief Note Patient seen and examined. Plan of care discussed with the medical team and the patient. Available lab work and radiology test reports were reviewed. Patient has been having posterior neck pain since yesterday. Last night he received Percocet and morphine however his pain did not improve. Patient also received Lyrica after which patient apparently became more confused. This morning he is sleepy and lethargic and very confused. Vital Signs Date Time Temp Pulse Resp B/P Pulse O2 O2 Flow FiO2 Ox Delivery Rate 07/28 0815 74 130/60 07/28 0915 74 130/60 07/28 0813 95 Nasal 1.0L Cannula 07/28 0800 Nasal 1.0L Cannula 07/28 0600 99.8 107 20 138/70 96 Nasal Cannula 07/28 0000 93 Nasal 1.5L Cannula 07/27 2310 120 136/60 07/27 2148 98.7 124 24 91 Nasal 1.0L Cannula 07/27 2121 122 162/90 07/27 1444 98.9 100 22 118/70 97 Intake & Output 07/28 1600 07/28 0800 07/28 0000 Intake Total 250 850 Output Total 700 650 Balance -450 200 Intake, Blood 350 Product Intake, Oral 250 500 Number 0 Bowel Movements Output, Urine 700 650 Exam: General: Patient drowsy lethargic and confused and disoriented CVS: S1 plus S2 without any murmur or gallops Chest: Few scattered crepitation without any wheeze. There is no respiratory distress. Abdomen: Soft with sluggish bowel sounds, surgical dressing in place over the left inguinal area. Abdomen appeared distended. MULTIFOCAL LENS ASSEMBLER: Arousable but lethargic and w disoriented ithout any focal neuro deficit and follows command appropriately Extremities: No edema; no clubbing or cyanosis noted Neck was palpated. There is no sign of trauma. Range of motion somewhat limited on neck flexion. Laboratory Tests 07/28 07/28 0659 0100 Chemistry Sodium (137 - 145 mmol/L) 142 Potassium (3.5 - 5.1 mmol/L) 4.7 Chloride (98 - 107 mmol/L) 111 H Carbon Dioxide (22 - 30 mmol/L) 19 L Anion Gap (5 - 16) 11 BUN (9 - 20 mg/dL) 26 H Creatinine (0.7 - 1.2 mg/dL) 2.2 H Estimated GFR (>60 ml/min) 28 L BUN/Creatinine Ratio (7 - 25 %) 11.8 Phosphorus (2.5 - 4.5 mg/dL) 3.7 Magnesium (1.6 - 2.3 mg/dL) 1.8 Coagulation APTT Cancelled Hematology CBC w Diff NO MAN DIFF REQ WBC (4.8 - 10.8 /CUMM) 9.0 RBC (4.70 - 6.10 /CUMM) 3.14 L Hgb (14.0 - 18.0 G/DL) 9.8 L Hct (42 - 52 %) 29.6 L MCV (80.0 - 94.0 FL) 94.4 H MCH (27.0 - 31.0 PG) 31.1 H RDW (11.5 - 14.5 %) 14.6 H Plt Count (130 - 400 /CUMM) 122 L MPV (7.4 - 10.4 FL) 9.2 Gran % (42.2 - 75.2 %) 73.6 Lymphocytes % (20.5 - 51.1 %) 12.8 L Monocytes % (1.7 - 9.3 %) 12.8 H Eosinophils % (0 - 5 %) 0.7 Basophils % (0.0 - 2.0 %) 0.1 Absolute Granulocytes (1.4 - 6.5 /CUMM) 6.6 H Absolute Lymphocytes (1.2 - 3.4 /CUMM) 1.1 L Absolute Monocytes (0.10 - 0.60 /CUMM) 1.1 H Absolute Eosinophils (0.0 - 0.7 /CUMM) 0.1 Absolute Basophils (0.0 - 0.2 /CUMM) 0 PUBS MCHC (33.0 - 37.0 G/DL) 33.0 Assessment plan * Sinus tachycardia- 2 troponin werenegative, other differential could include pulmonary embolism which was ruled out by VQ scan. Possible dehydration. Other differential could include pain. * Shorts of breath and hypoxia- overall improved hypoxia. VQ scan was low probability; no clear evidence of CHF given his BNP level is 728. * Left Hernia repair * Upper GI bleed- status post 1 pack cell transfusion yesterday with improvement in hematocrit * Hematuria-resolved * Chronic renal failure * Hypoglycemia- improved * Acute and chronic renal failure with increasing creatinine 2.4 * Thrombocytopenia- likely chronic * Hypophosphatemia * Posterior headache- no signs of meningitis * Acute delirium likely related to medications Plan * Continue IV fluids with D5W half normal saline; can stop fluid when patient able to take by mouth * Continue Cozaar and carvedilol; the patient is tachycardic may need to increase carvedilol * Control pain adequately * Continue IV Protonix * Continue subcutaneous heparin for DVT prophylaxis * Continue Accu-Chek monitoring- endocrinology note reviewed * Encouraged patient to use incentive spirometer * Add IV Tylenol for pain control. Patient can be given either morphine or reduced dose Dilaudid (for renal failure) this was discussed the surgical PA
[2016-07-28 15:24] VITALS: BP 130/60
[2016-07-28 22:47] VITALS: BP 122/90
[2016-07-29] VITALS (7 sets, daily range): BP systolic 118–166; BP diastolic 64–100
--- NOTE | 2016-07-29 | NUR ---
PT HR 112, BP 128/80, RR22 92% 1L NC TEMP 99.2. PT DENIES CHEST PAIN. STEFANIA MANTILLA MD MADE AWARE OF VITALS. PER MD NO NEED FOR INTERVENTION AT THIS TIME. WILL MONITOR.
--- NOTE | 2016-07-29 01:40 | NUR ---
PT'S BED ALARM GOING OFF, PT FOUND ON FLOOR BY THIS RN AND TECH, KNEELING, ON ALL FOURS, RAPID RESPONSE CALLED. TEAM TO BEDSIDE, PT BACK TO BED MAX ASSIST. VITALS TAKEN 166/100 HR 124 TEMP 98.5 RR24 92% 2L NC. BLOOD SUGAR 267. PT DENIES PAIN, PT DENIES HITTING HEAD ON FLOOR. PT ALERT/DISORIENTED. BP RECHECKED 140/64. ORDER FOR ORTHOSTATIC VITALS PLACED. BED ALARM IN PLACE. WILL CONTINUE TO MONITOR.
--- NOTE | 2016-07-29 02:05 | Event Note ---
Event Note Event Note: Called to see patient in rapid response. Pt was found on his knees trying to ambulate. He did not hit his head, he just lost the ability to stand. He was seen earlier and noted to have increased confusion earlier on 07/28. See by Dr Gibson and Dr Kauffman. No recommendations other than dc lyrica and morphine unless absolutely necessary. Morphine given as a one time order at 0800 for severe neck pain. It is noted in the MAR that the earler dose of morphine was never signed off, and therefore given at 9 pm. On assessment at rapid response Pt is awake and seems weak as earler but responds appropriately. He states that he was trying to leave. His family member was sleeping outside the room. He is not agitated, is in no pain. bp 150/80, HR 123 - he has had tachycardia throughout his entire stay except for one recording earlier today. RR 16, sat 98%, afebrile, glucose 263 Chest: clear anteriorly bilaterally Abd: softly distended, positive bowel sounds Discussed with medical team. Pt is now comfortable in bed. Baseline confusion as earlier today. All narcotics off. Discussed with Nursing. No new recommendations. They will have a bus monitor for the rest of the evening. Assess need for sitter/restraints in am.
--- NOTE | 2016-07-29 02:10 | Event Note ---
Event Note Event Note: Situation: Rapid response activated after nurse found patient on the floor Brief assessment * Patient was found on the floor on his knees with his hands holding the bed rails. * Patient was not endorsing any pain, denied hitting his head. * Vital signs: Heart rate 123, blood pressure 150/80, O2 93% on 2 L, temperature afebrile. * Physical examination: General: Patient was alert, awake and oriented to person and place, patient was not noted to be confused. Remaining exam was unremarkable. * Blood glucose obtained= 243 Assessment and plan Mechanical fall as patient reported he was attempting to get out of bed. No need for radiological studies as patient did not hit his head and is not complaining on any muscular pain. Will order orthostatics. Surgical PA was also present and will notify Dr Kauffman.
--- NOTE | 2016-07-29 04:13 | NUR ---
LATE ENTRY: AT 0350 SPOKE WITH SURGICAL PA BETH MORFIN ABOUT THE EVENT NOTE WHICH SHE STATED "PT WILL HAVE PICKER / PACKER FOR THE REST OF THE EVENING". PT DOES NOT HAVE AN ORDER FOR PICKER / PACKER, ADDRESSED WITH PA WHO STATES "SHE IS NOT ORDERING A PICKER / PACKER AND WILL ADDRESS THE NEED FOR SITTER IN THE AM". PT DOES NOT HAVE A KEE MONTIOR AT THIS TIME.
--- NOTE | 2016-07-29 08:19 | PN- General Surgery ---
See Addendum Subjective Subjective: 89-year-old male postop day 5 status post left open inguinal hernia repair with mesh. Currently he is tachycardic since surgery and mildly confused which has continued for the last 2-3 days. His Lyrica was stopped and he was given 1 dose of morphine last evening. He also had a fall last evening. Per his significant other at the bedside, he has been slightly confused and lethargic at times. She does not feel as though this is any worse since yesterday. He is passing gas, no bowel movement. She feels as though his stomach is distended but less so than yesterday. He is not complaining of any pain since his fall. His neck pain has improved. Objective Vital Signs and I&Os Vital Signs Date Time Temp Pulse Resp B/P Pulse O2 O2 Flow FiO2 Ox Delivery Rate 07/29 0530 98.2 120 20 138/80 94 Nasal Cannula 07/29 0222 115 140/80 07/29 0153 140/64 07/29 0140 98.5 124 24 166/100 07/29 0140 98.5 124 24 166/100 92 Nasal 2.0L Cannula 07/29 0000 92 Nasal 1.0L Cannula 07/28 2247 99.4 118 20 122/90 95 Nasal Cannula 07/28 2214 118 120/90 07/28 1705 95 Nasal 1.0L Cannula 07/28 1600 Nasal 1.0L Cannula 07/28 1524 98.9 109 24 130/60 93 07/28 0915 74 130/60 07/28 0915 74 130/60 07/28 0813 95 Nasal 1.0L Cannula Intake & Output 07/29 1600 07/29 0800 07/29 0000 07/28 1600 07/28 0800 07/28 0000 Intake Total 450 300 250 850 Output Total 1050 650 375 700 650 Balance -1050 -200 -75 -450 200 Intake, Blood 350 Product Intake, Oral 450 300 250 500 Number 0 0 Bowel Movements Output, Urine 1050 650 375 700 650 Physical Exam: Well-developed well-nourished elderly male, looks stated age. He is able to follow commands. He appears mildly sleepy but otherwise does not appear significantly confused. HEENT: Atraumatic, extraocular motion intact. Significantly dry mucous membranes Neck-Supple, no lymphadenopathy. Nontender. Limited range of motion due to mild stiffness, no meningismus. Heart: Tachycardic, regular Respiratory: No respiratory distress. 2 L via nasal cannula. Clear to auscultation bilateral. Abdomen: Softly distended, moderate. Decreased bowel sounds. Left inguinal region with incision clean dry and intact, no swelling no erythema no signs of infection or drainage. Extremities: No edema, nontender, no signs of trauma Neuro: Alert. able to follow commands Skin: Warm and dry, no rash on exposed skin Assessment/Plan Assessment/Plan 89 yo male s/p L inguinal hernia repair pod 5 with multiple comorbidities. -Postop tachycardia being followed by medicine and cardiology. -Increased confusion, possible secondary to medications, morphine and Lyrica has been stopped. We'll give him some more time to clear. Consider head CT or further workup if he becomes more confused or has any functional neurologic deficits. -Patient is constipated, no bowel movement yet, stool softeners ordered. ( Colace and MiraLAX) Consider abdominal x-ray if he stops passing flatus, abdomen becomes more distended or if he starts vomiting. -Tolerating diet, - continue fulls for now -GI and DVT prophylaxis (protonic IV and heparin subcutaneous) -Consider transfer to medical service as patient is stable from a surgical standpoint -Follow labs this morning, patient appears clinically dry, may need to increase IV fluids. He is making urine. Core Measures/Miscellaneous Venous Thromboembolism VTE Risk Factors: Age > 40, Surgery VTE Contraindications: No Contraindications VTE Diagnosis: No VTE Type: NONE VTE Confirmed by (Test): NONE Beta Maciej Is Beta Maciej a Home Med? Yes Antibiotics Is Patient on Antibiotics? Yes If Yes: prophylaxis
[2016-07-29 08:41] LABS: ABSOLUTE BASOPHIL COUNT 0 /CUMM (0.0-0.2); ABSOLUTE EOSINOPHIL COUNT 0.1 /CUMM (0.0-0.7); ABSOLUTE GRANULOCYTE CT 6.9 /CUMM (1.4-6.5); ABSOLUTE LYMPH COUNT 1.2 /CUMM (1.2-3.4); ABSOLUTE MONOCYTE COUNT 1.3 /CUMM (0.10-0.60); BASOPHIL % 0.2 % (0.0-2.0); EOSINOPHIL % 0.9 % (0-5); HEMATOCRIT 28.8 % (42-52); MEAN CORPUSCULAR HGB 30.9 PG (27.0-31.0); MEAN CORPUSCULAR HGB CONC 32.7 G/DL (33.0-37.0); MEAN CORPUSCULAR VOLUME 94.6 FL (80.0-94.0); MEAN PLATELET VOLUME 8.7 FL (7.4-10.4); PLATELET COUNT 146 /CUMM (130-400); RBC DISTRIBUTION WIDTH 14.3 % (11.5-14.5); RED BLOOD CELL CT 3.04 /CUMM (4.70-6.10); WHITE BLOOD CELL COUNT 9.6 /CUMM (4.8-10.8)
--- NOTE | 2016-07-29 09:22 | PN- Medicine Consult ---
ZA NARAYANAN 07/29/16 0921: Assessment/Plan Assessment/Plan Assessment: 89-year-old male with a past medical history of hypertension, GERD, insulin- dependent diabetes mellitus, peripheral vascular disease, CKD Stage III 2/2 diabetes?, BPH who was admitted to [facility] on 07/23/2016 and underwent an elective open repair of the left inguinal hernia, currently postoperative day #6 is tachycardic and hypoxemic. Plan: # Altered Mental Status - 2/2 pain medications vs delirium - Recommend D/C all opiods and avoid delirium triggers including constipation, familiarising and re-orienting to place. - If continues to worsen, would recommend getting a CT head # Acute hypoxemic respiratory failure Resolving. Now down to 2.0 liters from 3.0 Differentials at this point include aspiration PNA versus atelectasis given he recently underwent surgery and is in pain not being able to take deep breaths. Continue incentive spirometry VQ scan r/o PE Troponin and EKG so far negative # Sinus tachycardia Most likely 2/2 pain? vs dehydration vs anemia (his H&H continues to drop) Would consider hydrating with IVFs VQ showed low probability of PE Consider increasing carvedilol to 12.5 BID PO milligrams twice a day Optimize pain control #Hypertension Continue on Cozaar 25 mg daily, consider increasing carvedilol to 12.5 mg twice a day F/U Cardiology recommendations #Insulin-dependent diabetes mellitus On Novolog sliding scale, and start Levemir 10 units SC as per endo. Fingersticks elevated in the 200's. Endo on board. F/U recs. Patient is on full liquid diet. Advance diet as per Surgery #GERD in the setting of hematemesis No further episodes fo hematemesis Continue Protonix 40mg IV daily Would consult GI for endsocopy given drop in H&H, and episodes of hematemesis. Guiac all stools. #CKD stage III Most likely secondary to type 2 diabetes Stable #Hematuria Resolved Most likely secondary to trauma from Buitrago catheter placement Renal US showed simple renal cortical cyst within the upper pole of the right kidney. The bilateral kidneys otherwise appear unremarkable. #BPH Continue on tamsulosin. - Plan of care to be discussed with Dr. Singletary Subjective Subjective: Patient seen and examined at bedside. He was agitated last night and had a fall , while trying to get out of bed. He is awake, and is oriented to person and time, not to place. Offers no complaints. He continues to remain tachycardic. Review of Systems Constitutional: Denies: chills, fever. Cardiovascular: Denies: chest pain, palpitations. Respiratory: Denies: cough, short of breath. Gastrointestinal: Denies: abdominal pain, nausea, vomiting. Genitourinary: Reports: no symptoms. Musculoskeletal: Reports: no symptoms. Neurological/Psychological: Denies: headache, numbness, tingling, tremors. Objective Last 24 Hrs of Vital Signs/I&O Vital Signs Date Time Temp Pulse Resp B/P Pulse O2 O2 Flow FiO2 Ox Delivery Rate 07/29 1008 110 140/78 07/29 1008 110 140/78 07/29 1008 110 140/78 07/29 0530 98.2 120 20 138/80 94 Nasal Cannula 07/29 0222 115 140/80 07/29 0153 140/64 07/29 0140 98.5 124 24 166/100 07/29 0140 98.5 124 24 166/100 92 Nasal 2.0L Cannula 07/29 0000 92 Nasal 1.0L Cannula 07/28 2247 99.4 118 20 122/90 95 Nasal Cannula 07/28 2214 118 120/90 07/28 1705 95 Nasal 1.0L Cannula 07/28 1600 Nasal 1.0L Cannula 07/28 1524 98.9 109 24 130/60 93 Intake & Output 07/29 1600 07/29 0800 07/29 0000 Intake Total 450 Output Total 1050 650 Balance -1050 -200 Intake, Oral 450 Number 0 Bowel Movements Output, Urine 1050 650 Physical Exam General Appearance: awake, lethargic Head: has parched lips Neck: normal inspection, supple Cardiovascular: regular rate/rhythm Respiratory: normal breath sounds, chest non-tender, no respiratory distress, quiet respiration, lungs clear Abdomen: normal bowel sounds, soft, non-tender Extremities: normal inspection, normal capillary refill, normal range of motion, trace edema b/l Neurologic/Psychiatric: awake, oriented to person, not to place Current Medications: Current Medications Sig/Fatemeh Start time Last Medication Dose Route Stop Time Status Admin Acetaminophen 1,000 MG Q6H PRN 07/28 0945 AC N/A 1 UNIT IV Benzocaine/Menthol 1 RHETT Q2-3 HRS NEEDED.. 03/08 0745 DC 07/24 PO 0950 Carvedilol 6.25 MG BID 07/23 2200 AC 07/29 PO 1008 Cilostazol 100 MG BID 07/23 2200 AC 07/29 PO 1006 Docusate Sodium 100 MG BID 07/29 1000 AC 07/29 PO 1006 Heparin Sodium 5,000 UNIT Q8 07/25 2200 AC 07/29 (Porcine) SC 0532 Insulin Aspart 0 TIDAC/HS 07/27 1200 AC 07/29 SC 0832 Insulin Detemir 10 UNITS DAILY 07/29 1000 AC 07/29 SC 1005 Losartan Potassium 25 MG DAILY 07/24 1000 AC 07/29 PO 1008 Meclizine HCl 12.5 MG TID 07/23 1600 AC 07/29 PO 1006 Metoclopramide HCl 20 MG BID 07/23 2200 AC 07/29 PO 1005 Morphine Sulfate 2 MG ONCE ONE 07/29 0300 CAN IV 07/29 0301 Oxycodone/ 1 TAB Q4P PRN 07/23 1730 AC 07/27 Acetaminophen PO 1938 Pantoprazole Sodium 40 MG DAILY 07/24 2215 AC 07/29 IV 1005 Phosphate 250 MG PC AND AT BEDTIME 07/25 0900 AC 07/29 PO 0833 Polyethylene Glycol 17 GM DAILY 07/29 1000 AC 07/29 PO 1005 Tamsulosin HCl 0.4 MG DAILY 07/23 1445 AC 07/29 PO 1008 Results Last 24 Hrs Lab/Bret Results: Laboratory Tests 07/29/16 0715: Anion Gap 12, Estimated GFR 30 L, BUN/Creatinine Ratio 10.0, CBC w Diff NO MAN DIFF REQ, RBC 3.04 L, MCV 94.6 H, MCH 30.9, RDW 14.3, MPV 8.7, Gran % 72.0, Lymphocytes % 12.9 L, Monocytes % 14.0 H, Eosinophils % 0.9, Basophils % 0.2, Absolute Granulocytes 6.9 H, Absolute Lymphocytes 1.2, Absolute Monocytes 1.3 H, Absolute Eosinophils 0.1, Absolute Basophils 0, PUBS MCHC 32.7 L FALGUNI US,NARGIS 07/29/16 1205: Attending MD Review Statement Attending Sign Off Attending Cosign Statement: I have: examined this patient, reviewed aval EMR data, discussd w/resident/PA/ [employer]ER, discussed mgmt plan w/jose, discussed mgmt plan w/CM, discussed mgmt plan w/ pt, agreed w/resident/PA/[employer] SH[employer]DER T[employer]ER, amended to note. Other Findings: Patient seen and examined. Resting in bed not in acute distress. Lethargic. Answers some questions appropriately but occasionally incomprehensible. Complains of neck pain and difficulty moving his neck. Patient unable to specify if pain was present prior to admission. His mask was have the patient for while states that the neck pain is new. He has limited range of motion on examination. He moves his extremities spontaneously and weakly to command but with no focal deficits. Patient continues to have low-grade tachycardia. Sinus rhythm. Cardiology follow-up appreciated. Patient does appear clinically dry. He does not have a significant BUNs/creatinine ratio. Has had no further episodes of hematuria since discontinuation of the Buitrago catheter. No reports of hematemesis from the nursing staff. Hemoglobin level appears stable status post transfusion. Anemia is likely secondary to expected surgical blood loss Recommendations: -We'll obtain a head CT and neck CT to rule out any intracranial process or neck injury following his mechanical fall yesterday. -Limit opioid use as his confusion may be secondary to medication induced delirium. -Repeat CBC in the a.m. today show his hemoglobin level is stable. -Hydrate patient with normal saline at 100 mL an hour for 1 L. Repeat for another 1 L if patient continues to be tachycardic. -Increase dose of Coreg as recommended by the cardiology service. -Patient may be discharged once cleared by the cardiology service and if there is no worsening of his confusion. -Thank you again for the consultation, we will continue to follow along with you.
--- NOTE | 2016-07-29 10:20 | PN- Diabetes ---
Assessment/Plan Assessment: 89-year-old male with a past medical history of hypertension, GERD, diabetes mellitus, peripheral vascular disease, CKD Stage III, BPH who was admitted to [facility] on 07/23/2016 for an elective open repair of the left inguinal hernia. Patient is still sleepy and confused. He is on Novolog coverage before meals and Novolog coverage at bedtime. His FSGs were 275, 334, 240, 292, 267 and 313. Plan: 1. start Levemir 10 units daily given at 10 am; 2. adjust Novolog coverage before meals; detail see the inpatient DM order;hold Novolog meal coverage or give patient reduced dosage of Novolog if patient skips meal or eats poorly. Please call me if there is any question. 3. continue Novolog coverage at bedtime; 4. monitior FSGs; will follow. Inpatient Diabetes Orders Before Each Meal: Bolus Insulin: Novolog < 80 mg/dl: no coverage 80-100 mg/dl: 4 units 101-120 mg/dl: 4 units 121-150 mg/dl: 4 units 151-200 mg/dl: 5 units 201-250 mg/dl: 6 units 251-300 mg/dl: 7 units 301-350 mg/dl: 8 units 351-400 mg/dl: 9 units > 400 mg/dl: 10 units Subjective Subjective: Patient appears confused. Objective Last 24 Hrs of Vital Signs/I&O Vital Signs Date Time Temp Pulse Resp B/P Pulse O2 O2 Flow FiO2 Ox Delivery Rate 07/29 1008 110 140/78 07/29 1008 110 140/78 07/29 1008 110 140/78 07/29 0530 98.2 120 20 138/80 94 Nasal Cannula 07/29 0222 115 140/80 07/29 0153 140/64 07/29 0140 98.5 124 24 166/100 07/29 0140 98.5 124 24 166/100 92 Nasal 2.0L Cannula 07/29 0000 92 Nasal 1.0L Cannula 07/28 2247 99.4 118 20 122/90 95 Nasal Cannula 07/28 2214 118 120/90 07/28 1705 95 Nasal 1.0L Cannula 07/28 1600 Nasal 1.0L Cannula 07/28 1524 98.9 109 24 130/60 93 Intake & Output 07/29 1600 07/29 0800 07/29 0000 Intake Total 450 Output Total 1050 650 Balance -1050 -200 Intake, Oral 450 Number 0 Bowel Movements Output, Urine 1050 650 Findings Pertinent Lab/Bret Results: Laboratory Tests 07/29 0715 Chemistry Sodium (137 - 145 mmol/L) 142 Potassium (3.5 - 5.1 mmol/L) 4.5 Chloride (98 - 107 mmol/L) 110 H Carbon Dioxide (22 - 30 mmol/L) 20 L Anion Gap (5 - 16) 12 BUN (9 - 20 mg/dL) 21 H Creatinine (0.7 - 1.2 mg/dL) 2.1 H Estimated GFR (>60 ml/min) 30 L BUN/Creatinine Ratio (7 - 25 %) 10.0 Hematology CBC w Diff NO MAN DIFF REQ WBC (4.8 - 10.8 /CUMM) 9.6 RBC (4.70 - 6.10 /CUMM) 3.04 L Hgb (14.0 - 18.0 G/DL) 9.4 L Hct (42 - 52 %) 28.8 L MCV (80.0 - 94.0 FL) 94.6 H MCH (27.0 - 31.0 PG) 30.9 RDW (11.5 - 14.5 %) 14.3 Plt Count (130 - 400 /CUMM) 146 MPV (7.4 - 10.4 FL) 8.7 Gran % (42.2 - 75.2 %) 72.0 Lymphocytes % (20.5 - 51.1 %) 12.9 L Monocytes % (1.7 - 9.3 %) 14.0 H Eosinophils % (0 - 5 %) 0.9 Basophils % (0.0 - 2.0 %) 0.2 Absolute Granulocytes (1.4 - 6.5 /CUMM) 6.9 H Absolute Lymphocytes (1.2 - 3.4 /CUMM) 1.2 Absolute Monocytes (0.10 - 0.60 /CUMM) 1.3 H Absolute Eosinophils (0.0 - 0.7 /CUMM) 0.1 Absolute Basophils (0.0 - 0.2 /CUMM) 0 PUBS MCHC (33.0 - 37.0 G/DL) 32.7 L
--- NOTE | 2016-07-29 11:57 | PN- Cardiology ---
Subjective Subjective: Christina reevaluated patient for persistent sinus tachycardia. The patient is awake but sleepy. No chest pain. No shortness of breath. No palpitations. Objective Vital Signs and I&Os Vital Signs Date Time Temp Pulse Resp B/P Pulse O2 O2 Flow FiO2 Ox Delivery Rate 07/29 1133 96 Nasal 2.0L Cannula 07/29 1008 110 140/78 07/29 1008 110 140/78 07/29 1008 110 140/78 07/29 0530 98.2 120 20 138/80 94 Nasal Cannula 07/29 0222 115 140/80 07/29 0153 140/64 07/29 0140 98.5 124 24 166/100 07/29 0140 98.5 124 24 166/100 92 Nasal 2.0L Cannula 07/29 0000 92 Nasal 1.0L Cannula 07/28 2247 99.4 118 20 122/90 95 Nasal Cannula 07/28 2214 118 120/90 07/28 1705 95 Nasal 1.0L Cannula 07/28 1600 Nasal 1.0L Cannula 07/28 1524 98.9 109 24 130/60 93 Intake & Output 07/29 1600 07/29 0800 07/29 0000 07/28 1600 07/28 0800 07/28 0000 Intake Total 450 300 250 850 Output Total 250 1050 650 375 700 650 Balance -250 -1050 -200 -75 -450 200 Intake, Blood 350 Product Intake, Oral 450 300 250 500 Number 0 0 Bowel Movements Output, Urine 250 1050 650 375 700 650 Patient 165 lb Weight Physical Exam: Gen: NAD HEENT: normal Lungs: clear to auscultation, normal resp. effort Heart: RRR, S1, S2, no murmurs Abdomen: Soft, nontender, no masses Extremities: No clubbing, cyanosis, or edema. Neuro: Alert and oriented x 3, cranial nerves intact Current Medications: Current Medications Sig/Fatemeh Start time Last Medication Dose Route Stop Time Status Admin Acetaminophen 1,000 MG Q6H PRN 07/28 944 AC N/A 1 UNIT IV Benzocaine/Menthol 1 RHETT Q2-3 HRS NEEDED.. 07/24 744 DC 07/24 PO 0950 Carvedilol 6.25 MG BID 07/23 2199 AC 07/29 PO 1008 Cilostazol 100 MG BID 07/23 2199 AC 07/29 PO 1006 Docusate Sodium 100 MG BID 07/29 1000 AC 07/29 PO 1006 Heparin Sodium 5,000 UNIT Q8 07/25 2200 AC 07/29 (Porcine) SC 0532 Insulin Aspart 0 TIDAC/HS 07/27 1200 AC 07/29 SC 0832 Insulin Detemir 10 UNITS DAILY 07/29 1000 AC 07/29 SC 1005 Losartan Potassium 25 MG DAILY 07/24 1000 AC 07/29 PO 1008 Meclizine HCl 12.5 MG TID 07/23 1600 AC 07/29 PO 1006 Metoclopramide HCl 20 MG BID 07/23 2200 AC 07/29 PO 1005 Morphine Sulfate 2 MG ONCE ONE 07/29 0300 CAN IV 07/29 0301 Oxycodone/ 1 TAB Q4P PRN 07/23 1730 AC 07/27 Acetaminophen PO 1938 Pantoprazole Sodium 40 MG DAILY 07/24 2215 AC 07/29 IV 1005 Phosphate 250 MG PC AND AT BEDTIME 07/25 0900 AC 07/29 PO 0833 Polyethylene Glycol 17 GM DAILY 07/29 1000 AC 07/29 PO 1005 Tamsulosin HCl 0.4 MG DAILY 07/23 1445 AC 07/29 PO 1008 Results Last 48 Hrs of Labs/Mics: Laboratory Tests 07/29/16 0715: Anion Gap 12, Estimated GFR 30 L, BUN/Creatinine Ratio 10.0, CBC w Diff NO MAN DIFF REQ, RBC 3.04 L, MCV 94.6 H, MCH 30.9, RDW 14.3, MPV 8.7, Gran % 72.0, Lymphocytes % 12.9 L, Monocytes % 14.0 H, Eosinophils % 0.9, Basophils % 0.2, Absolute Granulocytes 6.9 H, Absolute Lymphocytes 1.2, Absolute Monocytes 1.3 H, Absolute Eosinophils 0.1, Absolute Basophils 0, PUBS MCHC 32.7 L 07/28/16 0659: Anion Gap 11, Estimated GFR 28 L, BUN/Creatinine Ratio 11.8, Phosphorus 3.7, Magnesium 1.8, CBC w Diff NO MAN DIFF REQ, RBC 3.14 L, MCV 94.4 H, MCH 31.1 H , RDW 14.6 H, MPV 9.2, Gran % 73.6, Lymphocytes % 12.8 L, Monocytes % 12.8 H, Eosinophils % 0.7, Basophils % 0.1, Absolute Granulocytes 6.6 H, Absolute Lymphocytes 1.1 L, Absolute Monocytes 1.1 H, Absolute Eosinophils 0.1, Absolute Basophils 0, PUBS MCHC 33.0 07/28/16 0100: APTT Cancelled Assessment/Plan Assessment/Plan Assessment: 1. Diabetes mellitus 2. Normal left ventricular ejection fraction 3 Status post inguinal hernia repair 4. Postoperative sinus tachycardia, uncertain etiology. Possible volume depletion. Plan: * Would resume IV fluid, normal saline at 100 ml per hour 1 L. If he remains tachycardic, and if lungs are clear after the first liter, a second liter could be given. * Repeat EKG today. * Increase carvedilol to 12.5 mrd PO twice a day Continue telemetry? Not applicable
--- NOTE | 2016-07-29 15:35 | CT SCAN REPORT ---
EXAMINATION: CT HEAD WO IV CONTRAST, CT NECK WO IV CONTRAST CLINICAL INFORMATION: 89-year-old male patient with increasing confusion and neck stiffness. COMPARISON: None. TECHNIQUE: Noncontrast enhanced CT of the neck and brain with coronal and sagittal reformats obtained at the acquisition workstation. The neck exam is limited by the lack of IV contrast. DLP: 480 mGy-cm. FINDINGS: Head: There is no evidence of acute intracranial hemorrhage or territorial infarction. Schuster-white matter tissue differentiation is well maintained. There is no mass or midline shift. Subarachnoid spaces are normal showing no extra-axial collections. The ventricular system and sulci are concordant with the patient's age. No abnormal brain attenuation is seen. The visualized paranasal sinuses and mastoid bones are well aerated. The bony structures are normal. There is extensive calcification in the cavernous and supraclinoid portions of both carotid arteries. NECK: No cervical adenopathy is identified. The parotid glands are homogeneous in attenuation. The submandibular glands are small but normal. No contour abnormality is seen within the oral cavity or pharyngeal mucosal space. The laryngeal structures are normal. The parapharyngeal fat is preserved. No extra mucosal soft tissue mass or fluid collection is seen. No retropharyngeal fluid collection is seen. 2 hypodense nodules are seen in the left lobe of thyroid gland. It is difficult to evaluate the right lobe due to beam hardening artifacts. The superior mediastinum is unremarkable. The lung apices are clear. There is a small pleural effusion on the right and may be trace on the left. The temporomandibular joints are normal. The patient is edentulous. There is severe cervical spondylosis with degenerative disc disease, disc fusion at C5-C6, large marginal hypertrophic spurs, and anterolisthesis of C3-C4 and C5. The latter is attributed to facet arthritis. IMPRESSION: 1. No acute intracranial disease. 2. No soft tissue mass in the neck. 3. Thyroid nodules. 4. Cervical spondylosis, severe.
[2016-07-30 07:27] VITALS: BP 150/80
--- NOTE | 2016-07-30 07:28 | PN- Medicine Consult ---
ZA NARAYANAN 07/30/16 0727: Assessment/Plan Assessment/Plan Assessment: 89-year-old male with a past medical history of hypertension, GERD, insulin- dependent diabetes mellitus, peripheral vascular disease, CKD Stage III 2/2 diabetes?, BPH who was admitted to [facility] on 07/23/2016 and underwent an elective open repair of the left inguinal hernia, currently postoperative day #7 is tachycardic and hypoxemic. Plan: # Altered Mental Status - 2/2 pain medications vs delirium - Recommend D/C all opiods and avoid delirium triggers including constipation, familiarising and re-orienting to place. - Head CT was done yesterday, showed no acute intracranial disease, no soft tissue mass in neck, and severe cervical spondylosis # Acute hypoxemic respiratory failure Resolving. Now down to 2.0 liters from 3.0 Differentials at this point include aspiration PNA versus atelectasis given he recently underwent surgery and is in pain not being able to take deep breaths. Continue incentive spirometry, and wean off oxygen. Would consider repeating CXR if respiratory status worsens. VQ scan r/o PE Troponin and EKG so far negative Recommend TRC/Nebs # Sinus tachycardia Most likely 2/2 pain? vs dehydration vs anemia (his H&H continues to drop) Continue to hydrate with IVFs VQ showed low probability of PE F/U cardiology recs regarding increasing carvedilol to 12.5 BID PO milligrams twice a day Optimize pain control #Hypertension Continue on Cozaar 25 mg daily, carvedilol 12.5 mg twice a day F/U Cardiology recommendations #Insulin-dependent diabetes mellitus On Novolog sliding scale, and start Levemir 10 units SC as per endo. Fingersticks much stable Endo on board. F/U recs. Patient is on full liquid diet. Advance diet as per Surgery #GERD in the setting of hematemesis No further episodes fo hematemesis Continue Protonix 40mg IV daily H&H stable. Guiac all stools. #CKD stage III Most likely secondary to type 2 diabetes Stable #Hematuria Resolved Most likely secondary to trauma from Buitrago catheter placement Renal US showed simple renal cortical cyst within the upper pole of the right kidney. The bilateral kidneys otherwise appear unremarkable. #BPH Continue on tamsulosin. - Plan of care discussed with Dr. Singletary Subjective Subjective: Patient seen and examined at bedside. He has a sitter as he was up all night. No episodes of agitation. Continues to require supplemental O2, currently on 2.0 liters. He was c/o neck pain yesterday, CT neck shows severe cervical spondylosis. Review of Systems Constitutional: Denies: chills, fever. EENTM: Denies: visual changes. Cardiovascular: Denies: chest pain, orthopena, palpitations, peripheral edema. Respiratory: Denies: cough, short of breath, sputum production. Gastrointestinal: Denies: abdominal pain, nausea, vomiting. Genitourinary: Reports: no symptoms. Musculoskeletal: Reports: no symptoms. Neurological/Psychological: Denies: headache, numbness, tingling, tremors. Objective Last 24 Hrs of Vital Signs/I&O Vital Signs Date Time Temp Pulse Resp B/P Pulse O2 O2 Flow FiO2 Ox Delivery Rate 07/30 0819 95 Nasal 2.0L Cannula 07/30 0727 97.4 108 20 150/80 95 Nasal Cannula 07/30 0000 93 Nasal 2.0L Cannula 07/29 2331 97.4 106 18 160/100 93 07/29 2258 165/90 07/29 2121 80 160/100 07/29 1701 Nasal 3.0L Cannula 07/29 1432 97.8 100 18 118/70 97 Nasal 3.0L Cannula 07/29 1133 96 Nasal 2.0L Cannula 07/29 1008 110 140/78 07/29 1008 110 140/78 07/29 1008 110 140/78 Intake & Output 07/30 1600 07/30 0800 07/30 0000 Intake Total 120 Output Total 225 625 Balance -225 -505 Intake, Oral 120 Output, Urine 225 625 Physical Exam General Appearance: alert, lethargic Head: atraumatic, normal appearance Neck: normal inspection, supple Cardiovascular: regular rate/rhythm Respiratory: rhonchi (B/L) Abdomen: normal bowel sounds, soft, non-tender Extremities: no edema Neurologic/Psychiatric: awake, drowsy, but arousable, looks lethargic Current Medications: Current Medications Sig/Fatemeh Start time Last Medication Dose Route Stop Time Status Admin Acetaminophen 1,000 MG Q6H PRN 07/28 0945 AC N/A 1 UNIT IV Carvedilol 12.5 MG BID 07/29 2199 AC 07/29 PO 2120 Carvedilol 6.25 MG BID 07/23 2200 DC 07/29 PO 1008 Cilostazol 100 MG BID 07/23 2200 AC 07/29 PO 211 Docusate Sodium 100 MG BID 07/29 1000 AC 07/29 PO 211 Heparin Sodium 5,000 UNIT Q8 07/25 2200 AC 07/30 (Porcine) SC 0517 Insulin Aspart 0 TIDAC/HS 07/27 1200 AC 07/29 SC 1837 Insulin Detemir 10 UNITS DAILY 07/29 1000 AC 07/29 SC 1005 Losartan Potassium 25 MG DAILY 07/24 1000 AC 07/29 PO 1008 Meclizine HCl 12.5 MG TID 07/23 1600 AC 07/29 PO 211 Metoclopramide HCl 20 MG BID 07/23 2200 AC 07/29 PO 211 Oxycodone/ 1 TAB Q4P PRN 07/23 1730 AC 07/29 Acetaminophen PO 2115 Pantoprazole Sodium 40 MG DAILY 07/24 2215 AC 07/29 IV 1005 Phosphate 250 MG PC AND AT BEDTIME 07/25 0900 AC 07/29 PO 211 Polyethylene Glycol 17 GM DAILY 07/29 1000 AC 07/29 PO 1005 Sodium Chloride 1,000 ML Q10H 07/29 1230 DC 07/29 IV 07/29 2229 1432 Tamsulosin HCl 0.4 MG DAILY 07/23 1445 AC 07/29 PO 1008 Results Last 24 Hrs Lab/Bret Results: Laboratory Tests 07/30/16 0748: Sodium Pending, Potassium Pending, Chloride Pending, Carbon Dioxide Pending, Anion Gap Pending, BUN Pending, Creatinine Pending, BUN/Creatinine Ratio Pending , CBC w Diff Pending, WBC Pending, RBC Pending, Hgb Pending, Hct Pending, MCV Pending, MCH Pending, RDW Pending, Plt Count Pending, MPV Pending, PUBS MCHC Pending Recent Imaging Studies: SERVICE DATE: 07/26/16 EXAM TYPE: RAD - [id number] VIEWS FINDINGS: Linear streak of atelectasis in the retrocardiac region of the left lower lobe. Bowel gas pattern is normal. Gas is seen within the colon to level the rectum. No pneumoperitoneum. No pathologic calcifications within the abdomen. Several phleboliths are present within the lower pelvis. There is multilevel disc degeneration with osteophyte formation of the examined spine. IMPRESSION: No acute findings. No evidence of bowel obstruction or ileus. SERVICE DATE: 07/29/16- EXAM TYPE: CAT - CT HEAD WO IV CONTRAST; CT NECK WO IV CONTRAST FINDINGS: Head: There is no evidence of acute intracranial hemorrhage or territorial infarction. Schuster-white matter tissue differentiation is well maintained. There is no mass or midline shift. Subarachnoid spaces are normal showing no extra-axial collections. The ventricular system and sulci are concordant with the patient's age. No abnormal brain attenuation is seen. The visualized paranasal sinuses and mastoid bones are well aerated. The bony structures are normal. There is extensive calcification in the cavernous and supraclinoid portions of both carotid arteries. NECK: No cervical adenopathy is identified. The parotid glands are homogeneous in attenuation. The submandibular glands are small but normal. No contour abnormality is seen within the oral cavity or pharyngeal mucosal space. The laryngeal structures are normal. The parapharyngeal fat is preserved. No extra mucosal soft tissue mass or fluid collection is seen. No retropharyngeal fluid collection is seen. 2 hypodense nodules are seen in the left lobe of thyroid gland. It is difficult to evaluate the right lobe due to beam hardening artifacts. The superior mediastinum is unremarkable. The lung apices are clear. There is a small pleural effusion on the right and may be trace on the left. The temporomandibular joints are normal. The patient is edentulous. There is severe cervical spondylosis with degenerative disc disease, disc fusion at C5-C6, large marginal hypertrophic spurs, and anterolisthesis of C3-C4 and C5. The latter is attributed to facet arthritis. IMPRESSION: 1. No acute intracranial disease. 2. No soft tissue mass in the neck. 3. Thyroid nodules. 4. Cervical spondylosis, severe. FALGUNI US,NARGIS 07/30/16 1000: Attending MD Review Statement Attending Sign Off Attending Cosign Statement: I have: examined this patient, reviewed aval EMR data, discussd w/resident/PA/ [employer], discussed mgmt plan w/jose, discussed mgmt plan w/CM, discussed mgmt plan w/ pt, agreed w/resident/PA/[employer], amended to note. Other Findings: Patient seen and examined. Resting comfortably not in acute distress. No issues overnight reported by nursing staff. Mental status is actually better today. He is more alert and oriented today. He reports that next discomfort has improved. He still has limited range of motion. Head and neck CT yesterday showed no acute pathology. He does have severe spondylosis. On examination he has mild rhonchi bilaterally. Oxygenation has actually improved. He is saturating 94% on 1 L oxygen. He does remain mildly tachycardic. He is yet to have a bowel movement. Recommendations: -Continue to wean off oxygen supplementation. Mobilize patient. -I agree with resident's recommendations for bronchodilator therapy as needed. -Continue current dose of beta sabina therapy. Heart rate should improve in the future once state he states is reached. -His hemoglobin level is stable since transfusion. -Advance diet as recommended by the surgical service. Consider enema if still not having a bowel movement. -Mental status has improved. He is currently on Percocet and IV Tylenol. He has not received any dose of IV Tylenol.
--- NOTE | 2016-07-30 08:10 | PN- General Surgery ---
See Addendum Subjective Subjective: NAEO. Patient without new c/o. Pain controlled. Tolerating full liquid diet without n/v. Patient is passing flatus, no BM documented. Denies CP/SOB. Objective Vital Signs and I&Os Vital Signs Date Time Temp Pulse Resp B/P Pulse O2 O2 Flow FiO2 Ox Delivery Rate 07/30 0727 97.4 108 20 150/80 95 Nasal Cannula 07/30 0000 93 Nasal 2.0L Cannula 07/29 2331 97.4 106 18 160/100 93 07/29 2258 165/90 07/29 2121 80 160/100 07/29 1701 Nasal 3.0L Cannula 07/29 1432 97.8 100 18 118/70 97 Nasal 3.0L Cannula 07/29 1133 96 Nasal 2.0L Cannula 07/29 1008 110 140/78 07/29 1008 110 140/78 07/29 1008 110 140/78 Intake & Output 07/30 1600 07/30 0800 07/30 0000 07/29 1600 07/29 0800 07/29 0000 Intake Total 120 900 450 Output Total 057 293 5133 1050 650 Balance -225 -505 -150 -1050 -200 Intake, IV 300 Intake, Oral 120 600 450 Number 0 Bowel Movements Output, Urine 344 555 3661 1050 650 Patient 165 lb Weight Physical Exam: General: NAD, comfortable, A&Ox3 Chest: Decreased breath sounds bilateral lung diallo with mild left current wheezing. Sinus tachycardic. Abdomen: soft, nontender, mildly distended. +Bowel sounds x4 quadrants. Left groin incision intact with sutures in place without surrounding erythema, swelling, signs of infection. : Left scrotum dressing with mild stress sinus drainage. Ext: No calve swelling/TTP, neurovascularly intact bilateral lower extremities Current Medications: Current Medications Sig/Fatemeh Start time Last Medication Dose Route Stop Time Status Admin Acetaminophen 1,000 MG Q6H PRN 07/28 0945 AC N/A 1 UNIT IV Carvedilol 12.5 MG BID 07/29 2199 AC 07/29 PO 2120 Carvedilol 6.25 MG BID 07/23 2200 DC 07/29 PO 1008 Cilostazol 100 MG BID 07/23 2199 AC 07/29 PO 2114 Docusate Sodium 100 MG BID 07/29 1000 AC 03/13 PO 2116 Heparin Sodium 5,000 UNIT Q8 07/25 2200 AC 07/30 (Porcine) SC 0517 Insulin Aspart 0 TIDAC/HS 07/27 1200 AC 07/29 SC 1837 Insulin Detemir 10 UNITS DAILY 07/29 1000 AC 07/29 SC 1005 Losartan Potassium 25 MG DAILY 07/24 1000 AC 07/29 PO 1008 Meclizine HCl 12.5 MG TID 07/23 1600 AC 07/29 PO 2116 Metoclopramide HCl 20 MG BID 07/23 2200 AC 07/29 PO 2114 Oxycodone/ 1 TAB Q4P PRN 07/23 1730 AC 07/29 Acetaminophen PO 211 Pantoprazole Sodium 40 MG DAILY 07/24 2215 AC 07/29 IV 1005 Phosphate 250 MG PC AND AT BEDTIME 07/25 0900 AC 07/29 PO 2114 Polyethylene Glycol 17 GM DAILY 07/29 1000 AC 07/29 PO 1005 Sodium Chloride 1,000 ML Q10H 07/29 1230 DC 07/29 IV 07/29 2229 1432 Tamsulosin HCl 0.4 MG DAILY 07/23 1445 AC 07/29 PO 1008 Results Last 48 Hours of Labs: Laboratory Tests 07/29 0715 Chemistry Sodium (137 - 145 mmol/L) 142 Potassium (3.5 - 5.1 mmol/L) 4.5 Chloride (98 - 107 mmol/L) 110 H Carbon Dioxide (22 - 30 mmol/L) 20 L Anion Gap (5 - 16) 12 BUN (9 - 20 mg/dL) 21 H Creatinine (0.7 - 1.2 mg/dL) 2.1 H Estimated GFR (>60 ml/min) 30 L BUN/Creatinine Ratio (7 - 25 %) 10.0 Hematology CBC w Diff NO MAN DIFF REQ WBC (4.8 - 10.8 /CUMM) 9.6 RBC (4.70 - 6.10 /CUMM) 3.04 L Hgb (14.0 - 18.0 G/DL) 9.4 L Hct (42 - 52 %) 28.8 L MCV (80.0 - 94.0 FL) 94.6 H MCH (27.0 - 31.0 PG) 30.9 RDW (11.5 - 14.5 %) 14.3 Plt Count (130 - 400 /CUMM) 146 MPV (7.4 - 10.4 FL) 8.7 Gran % (42.2 - 75.2 %) 72.0 Lymphocytes % (20.5 - 51.1 %) 12.9 L Monocytes % (1.7 - 9.3 %) 14.0 H Eosinophils % (0 - 5 %) 0.9 Basophils % (0.0 - 2.0 %) 0.2 Absolute Granulocytes (1.4 - 6.5 /CUMM) 6.9 H Absolute Lymphocytes (1.2 - 3.4 /CUMM) 1.2 Absolute Monocytes (0.10 - 0.60 /CUMM) 1.3 H Absolute Eosinophils (0.0 - 0.7 /CUMM) 0.1 Absolute Basophils (0.0 - 0.2 /CUMM) 0 PUBS MCHC (33.0 - 37.0 G/DL) 32.7 L Assessment/Plan Assessment/Plan 89yo male status post open left inguinal hernia repair. AVSS. Patient stable at this time. - Pain control - Continue full liquid diet - I/O's - Follow-up medicine and cardiology recs - Follow-up labs - Continue Pletal - Continue Coreg - Alps - Will discuss with attending Core Measures/Miscellaneous Venous Thromboembolism VTE Risk Factors: Age > 40, Surgery VTE Contraindications: No Contraindications VTE Diagnosis: No VTE Type: NONE VTE Confirmed by (Test): NONE Beta Maciej Is Beta Maciej a Home Med? Yes Antibiotics Is Patient on Antibiotics? No
[2016-07-30 08:53] LABS: ABSOLUTE BASOPHIL COUNT 0 /CUMM (0.0-0.2); ABSOLUTE EOSINOPHIL COUNT 0.3 /CUMM (0.0-0.7); ABSOLUTE GRANULOCYTE CT 5.1 /CUMM (1.4-6.5); ABSOLUTE LYMPH COUNT 1.6 /CUMM (1.2-3.4); ABSOLUTE MONOCYTE COUNT 1.2 /CUMM (0.10-0.60); BASOPHIL % 0.3 % (0.0-2.0); EOSINOPHIL % 3.1 % (0-5); HEMATOCRIT 28.3 % (42-52); MEAN CORPUSCULAR HGB 31.5 PG (27.0-31.0); MEAN CORPUSCULAR HGB CONC 33.5 G/DL (33.0-37.0); MEAN CORPUSCULAR VOLUME 94.1 FL (80.0-94.0); MEAN PLATELET VOLUME 8.6 FL (7.4-10.4); PLATELET COUNT 170 /CUMM (130-400); RBC DISTRIBUTION WIDTH 14.5 % (11.5-14.5); RED BLOOD CELL CT 3.01 /CUMM (4.70-6.10); WHITE BLOOD CELL COUNT 8.3 /CUMM (4.8-10.8)
--- NOTE | 2016-07-30 11:58 | PN- Cardiology ---
Subjective Subjective: The patient is feeling well. He is mildly confused. No chest pain. No shortness of breath. No diaphoresis. No palpitations. No nausea or vomiting. Objective Vital Signs and I&Os Vital Signs Date Time Temp Pulse Resp B/P Pulse O2 O2 Flow FiO2 Ox Delivery Rate 07/30 1129 140/80 07/30 0938 113 140/80 07/30 0938 113 140/80 07/30 0905 93 Nasal 1.0L Cannula 07/30 0819 95 Nasal 2.0L Cannula 07/30 0727 97.4 108 20 150/80 95 Nasal Cannula 07/30 0000 93 Nasal 2.0L Cannula 07/29 2331 97.4 106 18 160/100 93 07/29 2258 165/90 07/29 2121 80 160/100 07/29 1701 Nasal 3.0L Cannula 07/29 1432 97.8 100 18 118/70 97 Nasal 3.0L Cannula Intake & Output 07/30 1600 07/30 0800 07/30 0000 07/29 1600 07/29 0800 07/29 0000 Intake Total 120 900 450 Output Total 751 885 5938 1050 650 Balance -225 -505 -150 -1050 -200 Intake, IV 300 Intake, Oral 120 600 450 Number 0 Bowel Movements Output, Urine 102 150 0374 1050 650 Patient 165 lb Weight Physical Exam: Gen: NAD HEENT: normal Lungs: clear to auscultation, normal resp. effort Heart: RRR, S1, S2, no murmurs Abdomen: Soft, nontender, no masses Extremities: No clubbing, cyanosis, or edema. Neuro: Alert and oriented x 3, cranial nerves intact Current Medications: Current Medications Sig/Fatemeh Start time Last Medication Dose Route Stop Time Status Admin Acetaminophen 1,000 MG Q6H PRN 07/28 0945 N/A 1 UNIT IV Carvedilol 12.5 MG BID 07/29 2200 AC 07/30 PO 1129 Carvedilol 6.25 MG BID 07/23 2200 DC 07/29 PO 1008 Cilostazol 100 MG BID 07/23 2200 AC 07/30 PO 1126 Docusate Sodium 100 MG BID 07/29 1000 AC 07/30 PO 0939 Heparin Sodium 5,000 UNIT Q8 07/25 2199 AC 07/30 (Porcine) SC 0517 Insulin Aspart 0 TIDAC/HS 07/27 1200 AC 07/29 NE 1837 Insulin Detemir 10 UNITS DAILY 07/29 1000 AC 07/30 SC 1125 Losartan Potassium 25 MG DAILY 07/24 1000 AC 07/30 PO 0938 Meclizine HCl 12.5 MG TID 07/23 1600 AC 07/30 PO 0939 Metoclopramide HCl 20 MG BID 07/23 2200 AC 07/30 PO 0937 Oxycodone/ 1 TAB Q4P PRN 07/23 1730 AC 07/29 Acetaminophen PO 2116 Pantoprazole Sodium 40 MG DAILY 07/24 2215 AC 07/30 IV 0937 Phosphate 250 MG PC AND AT BEDTIME 07/25 0900 AC 07/30 PO 0937 Polyethylene Glycol 17 GM DAILY 07/29 1000 AC 07/30 PO 0937 Sodium Chloride 1,000 ML Q10H 07/29 1230 DC 07/29 IV 07/29 2229 1432 Sodium Phosphate 1 UNIT ONCE ONE 07/30 0845 DC WI 07/30 0846 Tamsulosin HCl 0.4 MG DAILY 07/23 1445 AC 07/30 PO 0938 Results Last 48 Hrs of Labs/Mics: Laboratory Tests 07/30/16 0748: Anion Gap 10, Estimated GFR 32 L, BUN/Creatinine Ratio 10.5, CBC w Diff NO MAN DIFF REQ, RBC 3.01 L, MCV 94.1 H, MCH 31.5 H, RDW 14.5, MPV 8.6, Gran % 62.0, Lymphocytes % 19.9 L, Monocytes % 14.7 H, Eosinophils % 3.1, Basophils % 0.3, Absolute Granulocytes 5.1, Absolute Lymphocytes 1.6, Absolute Monocytes 1.2 H, Absolute Eosinophils 0.3, Absolute Basophils 0, PUBS MCHC 33.5 07/29/16 0715: Anion Gap 12, Estimated GFR 30 L, BUN/Creatinine Ratio 10.0, CBC w Diff NO MAN DIFF REQ, RBC 3.04 L, MCV 94.6 H, MCH 30.9, RDW 14.3, MPV 8.7, Gran % 72.0, Lymphocytes % 12.9 L, Monocytes % 14.0 H, Eosinophils % 0.9, Basophils % 0.2, Absolute Granulocytes 6.9 H, Absolute Lymphocytes 1.2, Absolute Monocytes 1.3 H, Absolute Eosinophils 0.1, Absolute Basophils 0, PUBS MCHC 32.7 L Assessment/Plan Assessment/Plan Assessment: 1. Diabetes mellitus 2. Normal left ventricular ejection fraction 3 Status post inguinal hernia repair 4. Postoperative sinus tachycardia, improving Plan: * Continue carvedilol 25 mg PO twice a day. * Continue other cardiac medications. * Sinus tachycardia improving. No change in therapy needed at this time. In the future, the carvedilol dose can be increased to 25 mg twice a day if the heart rate remains later than 100. Continue telemetry? Not applicable
--- NOTE | 2016-07-30 12:42 | PN- Diabetes ---
Assessment/Plan Assessment: 89-year-old male with a past medical history of hypertension, GERD, diabetes mellitus, peripheral vascular disease, CKD Stage III, BPH who was admitted to [facility] on 07/23/2016 for an elective open repair of the left inguinal hernia. He is on Levemir 10 units daily, Novolog coverage before meals and Novolog coverage at bedtime. His FSGs were 313, 300, 254, 134, 146 and 313. His po intake has bee poor. He had some juice for breakfast. Plan: 1. recommend one can of Glucerna with meals x 3 times a day as his po intake has been poor. 2. continue Levemir 10 units daily for now. 3. continue the current Novolog coverage before meals and Novolog coverage at bedtime. 4. monitor FSGs. will follow. Subjective Subjective: Patient is still confused. Objective Last 24 Hrs of Vital Signs/I&O Vital Signs Date Time Temp Pulse Resp B/P Pulse O2 O2 Flow FiO2 Ox Delivery Rate 07/30 1129 140/80 07/30 0938 113 140/80 07/30 0938 113 140/80 07/30 0905 93 Nasal 1.0L Cannula 07/30 0819 95 Nasal 2.0L Cannula 07/30 0727 97.4 108 20 150/80 95 Nasal Cannula 07/30 0000 93 Nasal 2.0L Cannula 07/29 2331 97.4 106 18 160/100 93 07/29 2258 165/90 07/29 2121 80 160/100 07/29 1701 Nasal 3.0L Cannula 07/29 1432 97.8 100 18 118/70 97 Nasal 3.0L Cannula Intake & Output 07/30 1600 07/30 0800 07/30 0000 Intake Total 120 Output Total 225 625 Balance -225 -505 Intake, Oral 120 Output, Urine 225 625 Findings Pertinent Lab/Bret Results: Laboratory Tests 07/30 0748 Chemistry Sodium (137 - 145 mmol/L) 146 H Potassium (3.5 - 5.1 mmol/L) 4.9 Chloride (98 - 107 mmol/L) 113 H Carbon Dioxide (22 - 30 mmol/L) 23 Anion Gap (5 - 16) 10 BUN (9 - 20 mg/dL) 21 H Creatinine (0.7 - 1.2 mg/dL) 2.0 H Estimated GFR (>60 ml/min) 32 L BUN/Creatinine Ratio (7 - 25 %) 10.5 Hematology CBC w Diff NO MAN DIFF REQ WBC (4.8 - 10.8 /CUMM) 8.3 RBC (4.70 - 6.10 /CUMM) 3.01 L Hgb (14.0 - 18.0 G/DL) 9.5 L Hct (42 - 52 %) 28.3 L MCV (80.0 - 94.0 FL) 94.1 H MCH (27.0 - 31.0 PG) 31.5 H RDW (11.5 - 14.5 %) 14.5 Plt Count (130 - 400 /CUMM) 170 MPV (7.4 - 10.4 FL) 8.6 Gran % (42.2 - 75.2 %) 62.0 Lymphocytes % (20.5 - 51.1 %) 19.9 L Monocytes % (1.7 - 9.3 %) 14.7 H Eosinophils % (0 - 5 %) 3.1 Basophils % (0.0 - 2.0 %) 0.3 Absolute Granulocytes (1.4 - 6.5 /CUMM) 5.1 Absolute Lymphocytes (1.2 - 3.4 /CUMM) 1.6 Absolute Monocytes (0.10 - 0.60 /CUMM) 1.2 H Absolute Eosinophils (0.0 - 0.7 /CUMM) 0.3 Absolute Basophils (0.0 - 0.2 /CUMM) 0 PUBS MCHC (33.0 - 37.0 G/DL) 33.5
[2016-07-30 14:39] VITALS: BP 140/90
--- NOTE | 2016-07-30 18:27 | Patient Discharge Instructions ---
Discharge Instructions General Discharge Information You were seen/treated for: Left incarcerated inguinal hernia You had these procedures: 07/23/16 Open left inguinal hernia repair Watch for these problems: Redness, swelling, fever, purulent drainage, signs of infection. Return of symptoms. Uncontrolled pain. Excessive bleeding. Inability to tolerate diet or unable to have bowel movements. Chest pain, shortness of breath. Do not soak the wound: Yes No bath, but you may shower: Yes Other wound care: Daily dry dressing changes or as needed. Diet Continue normal diet: Yes Activity Full Activity/No Limits: No Pounds, do NOT lift more than: 10 Other activity limits: No strenuous activity or exercise. Acute Coronary Syndrome Inclusion Criteria At DC or during hospital stay patient has or had the following: ACS DIAGNOSIS No Discharge Core Measures Meds if any: Prescribed or Continued at Discharge Meds if any: NOT Prescribed or Continued at Discharge Congestive Heart Failure Inclusion Criteria At DC or during hospital stay patient has or had the following: CHF DIAGNOSIS No Discharge Core Measures Meds if any: Prescribed or Continued at Discharge Meds if any: NOT Prescribed or Continued at Discharge Cerebrovascular accident Inclusion Criteria At DC or during hospital stay patient has or had the following: CVA/TIA Diagnosis No Discharge Core Measures Meds if any: Prescribed or Continued at Discharge Meds if any: NOT Prescribed or Continued at Discharge Venous thromboembolism Inclusion Criteria VTE Diagnosis No VTE Type NONE VTE Confirmed by (Test) NONE Discharge Core Measures - Per Current guidelines, there needs to be overlap - treatment for the first 5 days of Warfarin therapy. - If discharged on Warfarin prior to 5 days of - overlap therapy, the patient will need to be - assessed for post discharge needs including - *Post discharge parental anticoagulation - *Warfarin and/or parental anticoagulation education - *Follow up date to check INR post discharge At least 5 days overlap therapy as Inpatient No Meds if any: Prescribed or Continued at Discharge Note: Overlap Therapy is Warfarin and Anticoagulant Meds if any: NOT Prescribed or Continued at Discharge
[2016-07-30 21:13] VITALS: BP 102/78
[2016-07-31 06:37] VITALS: BP 124/70
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
--- NOTE | 2016-07-31 08:00 | PN- General Surgery ---
See Addendum Subjective Subjective: Three bms recorded yesterday afternoon/evening. Reportedly ate 100% of his lunch but refused dinner. Per nursing staff he has been drinking water and gingerale over night. Denies nausea. No shortness of breath. No chest pains. No dizziness. Tachycardia seems better. Objective Vital Signs and I&Os Vital Signs Date Time Temp Pulse Resp B/P Pulse O2 O2 Flow FiO2 Ox Delivery Rate 07/31 0637 98.9 89 20 124/70 91 Nasal Cannula 07/31 0000 97 Nasal 2.0L Cannula 07/30 2135 95 102/78 07/30 2113 97.0 95 20 102/78 97 Nasal 2.0L Cannula 07/30 1829 96 Nasal 2.0L Cannula 07/30 1600 Nasal 2.0L Cannula 07/30 1439 96.5 88 20 140/90 99 Room Air 07/30 1129 140/80 07/30 0938 113 140/80 07/30 0938 113 140/80 07/30 0905 93 Nasal 1.0L Cannula 07/30 0819 95 Nasal 2.0L Cannula Intake & Output 07/31 1600 07/31 0800 07/31 0000 07/30 1600 07/30 0800 07/30 0000 Intake Total 100 100 100 120 Output Total 800 100 225 625 Balance 100 -700 0 -225 -505 Intake, Oral 100 100 100 120 Number 3 0 Bowel Movements Output, Urine 800 100 225 625 Physical Exam: General - alert. comfortable. no acute distress. Lungs - decreased breath sounds bilateral lung diallo. poor effort. Cardiac - s1s2. reg. Abdomen: soft, nontender. Left groin incision intact with steri strips in place without surrounding erythema, swelling, signs of infection. - Left scrotum dressing intact Extremities - warm bilaterally. no c/c/e. calves soft and nontender b/l. Current Medications: Current Medications Sig/Fatemeh Start time Last Medication Dose Route Stop Time Status Admin Acetaminophen 1,000 MG Q6H PRN 07/28 0945 AC N/A 1 UNIT IV Carvedilol 12.5 MG BID 07/29 2200 AC 07/30 PO 2134 Cilostazol 100 MG BID 07/23 2200 AC 07/30 PO 213 Docusate Sodium 100 MG BID 07/29 1000 AC 07/30 PO 2134 Heparin Sodium 5,000 UNIT Q8 07/25 2199 AC 07/31 (Porcine) SC 0630 Insulin Aspart 0 TIDAC/HS 07/27 1200 AC 07/30 SC 1334 Insulin Detemir 10 UNITS DAILY 07/29 1000 AC 07/30 SC 1125 Losartan Potassium 25 MG DAILY 07/24 1000 AC 07/30 PO 0938 Meclizine HCl 12.5 MG TID 07/23 1600 AC 07/30 PO 2136 Metoclopramide HCl 20 MG BID 07/23 2200 AC 07/30 PO 2135 Omeprazole 40 MG DAILY AC 07/31 0745 AC PO Oxycodone/ 1 TAB Q4P PRN 07/23 1730 DC 07/29 Acetaminophen PO 2116 Pantoprazole Sodium 40 MG DAILY 07/24 2215 DC 07/30 IV 0937 Phosphate 250 MG PC AND AT BEDTIME 07/25 0900 AC 07/30 PO 2134 Polyethylene Glycol 17 GM DAILY 07/29 1000 DC 07/30 PO 0937 Sodium Phosphate 1 UNIT ONCE ONE 07/30 0845 DC [place] 07/30 0846 Tamsulosin HCl 0.4 MG DAILY 07/23 1445 AC 07/30 PO 0938 Results Last 48 Hours of Labs: Laboratory Tests 07/31 07/30 0600 0748 Chemistry Sodium (137 - 145 mmol/L) Pending 146 H Potassium (3.5 - 5.1 mmol/L) Pending 4.9 Chloride (98 - 107 mmol/L) Pending 113 H Carbon Dioxide (22 - 30 mmol/L) Pending 23 Anion Gap (5 - 16) Pending 10 BUN (9 - 20 mg/dL) Pending 21 H Creatinine (0.7 - 1.2 mg/dL) Pending 2.0 H Estimated GFR (>60 ml/min) 32 L BUN/Creatinine Ratio (7 - 25 %) Pending 10.5 Hematology CBC w Diff Pending NO MAN DIFF REQ WBC (4.8 - 10.8 /CUMM) Pending 8.3 RBC (4.70 - 6.10 /CUMM) Pending 3.01 L Hgb (14.0 - 18.0 G/DL) Pending 9.5 L Hct (42 - 52 %) Pending 28.3 L MCV (80.0 - 94.0 FL) Pending 94.1 H MCH (27.0 - 31.0 PG) Pending 31.5 H RDW (11.5 - 14.5 %) Pending 14.5 Plt Count (130 - 400 /CUMM) Pending 170 MPV (7.4 - 10.4 FL) Pending 8.6 Gran % (42.2 - 75.2 %) 62.0 Lymphocytes % (20.5 - 51.1 %) 19.9 L Monocytes % (1.7 - 9.3 %) 14.7 H Eosinophils % (0 - 5 %) 3.1 Basophils % (0.0 - 2.0 %) 0.3 Absolute Granulocytes (1.4 - 6.5 /CUMM) 5.1 Absolute Lymphocytes (1.2 - 3.4 /CUMM) 1.6 Absolute Monocytes (0.10 - 0.60 /CUMM) 1.2 H Absolute Eosinophils (0.0 - 0.7 /CUMM) 0.3 Absolute Basophils (0.0 - 0.2 /CUMM) 0 PUBS MCHC (33.0 - 37.0 G/DL) Pending 33.5 Assessment/Plan Assessment/Plan This 89 year old male with hx htn, ckd, hld, dm, bph, vertigo, is POD#8 s/p open left inguinal hernia repair diet advanced to diabetic diet for dinner last night, but he hasn't really eaten much yet tachycardia better with coreg bid f/u labs check u/a and cxr wean o2 as able hep sc - dvt ppx continue pletal PT eval f/u medical / cards input d/c planning will d/w Core Measures/Miscellaneous Venous Thromboembolism VTE Risk Factors: Age > 40, Surgery VTE Contraindications: No Contraindications VTE Diagnosis: No VTE Type: NONE VTE Confirmed by (Test): NONE Beta Maciej Is Beta Maciej a Home Med? Yes Antibiotics Is Patient on Antibiotics? No Is Patient on Antibiotics? No
[2016-07-31 08:02] LABS: ABSOLUTE BASOPHIL COUNT 0 /CUMM (0.0-0.2); ABSOLUTE EOSINOPHIL COUNT 0.3 /CUMM (0.0-0.7); ABSOLUTE GRANULOCYTE CT 4.6 /CUMM (1.4-6.5); ABSOLUTE LYMPH COUNT 1.7 /CUMM (1.2-3.4); BASOPHIL % 0.3 % (0.0-2.0); EOSINOPHIL % 3.8 % (0-5); GRANULOCYTE % 60.7 % (42.2-75.2); HEMATOCRIT 26.8 % (42-52); MEAN CORPUSCULAR HGB CONC 32.7 G/DL (33.0-37.0); MEAN CORPUSCULAR VOLUME 94.7 FL (80.0-94.0); MEAN PLATELET VOLUME 8.4 FL (7.4-10.4); PLATELET COUNT 209 /CUMM (130-400); RBC DISTRIBUTION WIDTH 14.3 % (11.5-14.5); RED BLOOD CELL CT 2.83 /CUMM (4.70-6.10); WHITE BLOOD CELL COUNT 7.7 /CUMM (4.8-10.8)
--- NOTE | 2016-07-31 08:57 | RADIOLOGY REPORT ---
EXAMINATION: XR PORTABLE CHEST CLINICAL INFORMATION: Hypoxia. COMPARISON: 07/24/2016. TECHNIQUE: Portable AP view of the chest was obtained. FINDINGS: Lung volumes are diminished. Patchy opacities at the bilateral lung bases appear largely unchanged most consistent with subsegmental atelectasis. Cardiomediastinal silhouette appears unchanged. No underlying pulmonary edema or pneumothorax is seen. IMPRESSION: Stable appearing chest x-ray without evidence of infiltrate or pulmonary edema.
--- NOTE | 2016-07-31 11:54 | PN- Diabetes ---
Assessment/Plan Assessment: 89-year-old male with a past medical history of hypertension, GERD, diabetes mellitus, peripheral vascular disease, CKD Stage III, BPH who was admitted to [facility] on 07/23/2016 for an elective open repair of the left inguinal hernia. He is on Levemir 10 units daily, Novolog coverage before meals and Novolog coverage at bedtime. His FSGs were 313, 171, 99 and 144. Plan: continue the current insulin regimen for now. --Levemir 10 units daily; --Novolog coverage before meals and Novolog coverage at bedtime; --monitor FSGs. will follow Subjective Subjective: He appears better this morning, more alert. Objective Last 24 Hrs of Vital Signs/I&O Vital Signs Date Time Temp Pulse Resp B/P Pulse O2 O2 Flow FiO2 Ox Delivery Rate 07/31 1100 95 Nasal 2.0L Cannula 07/31 1057 99 104/66 07/31 0637 98.9 89 20 124/70 91 Nasal Cannula 07/31 0000 97 Nasal 2.0L Cannula 07/30 2135 95 102/78 07/30 2113 97.0 95 20 102/78 97 Nasal 2.0L Cannula 07/30 1829 96 Nasal 2.0L Cannula 07/30 1600 Nasal 2.0L Cannula 07/30 1439 96.5 88 20 140/90 99 Room Air Intake & Output 07/31 1600 07/31 0800 07/31 0000 Intake Total 100 100 Output Total 200 800 Balance -200 100 -700 Intake, Oral 100 100 Number 1 3 Bowel Movements Output, Urine 200 800 Findings Pertinent Lab/Bret Results: Laboratory Tests 07/31 0600 Chemistry Sodium (137 - 145 mmol/L) 144 Potassium (3.5 - 5.1 mmol/L) 4.5 Chloride (98 - 107 mmol/L) 111 H Carbon Dioxide (22 - 30 mmol/L) 23 Anion Gap (5 - 16) 10 BUN (9 - 20 mg/dL) 21 H Creatinine (0.7 - 1.2 mg/dL) 2.1 H Estimated GFR (>60 ml/min) 30 L BUN/Creatinine Ratio (7 - 25 %) 10.0 Hematology CBC w Diff NO MAN DIFF REQ WBC (4.8 - 10.8 /CUMM) 7.7 RBC (4.70 - 6.10 /CUMM) 2.83 L Hgb (14.0 - 18.0 G/DL) 8.8 L Hct (42 - 52 %) 26.8 L MCV (80.0 - 94.0 FL) 94.7 H MCH (27.0 - 31.0 PG) 31.0 RDW (11.5 - 14.5 %) 14.3 Plt Count (130 - 400 /CUMM) 209 MPV (7.4 - 10.4 FL) 8.4 Gran % (42.2 - 75.2 %) 60.7 Lymphocytes % (20.5 - 51.1 %) 22.6 Monocytes % (1.7 - 9.3 %) 12.6 H Eosinophils % (0 - 5 %) 3.8 Basophils % (0.0 - 2.0 %) 0.3 Absolute Granulocytes (1.4 - 6.5 /CUMM) 4.6 Absolute Lymphocytes (1.2 - 3.4 /CUMM) 1.7 Absolute Monocytes (0.10 - 0.60 /CUMM) 1.0 H Absolute Eosinophils (0.0 - 0.7 /CUMM) 0.3 Absolute Basophils (0.0 - 0.2 /CUMM) 0 PUBS MCHC (33.0 - 37.0 G/DL) 32.7 L
[2016-07-31 14:14] VITALS: BP 122/58
--- NOTE | 2016-07-31 14:29 | PN- Cardiology ---
Subjective Subjective: Clinically, the patient appears about the same. He remains mildly tachycardic. Remains intermittent we confused. Objective Vital Signs and I&Os Vital Signs Date Time Temp Pulse Resp B/P Pulse O2 O2 Flow FiO2 Ox Delivery Rate 07/31 1414 97.5 96 20 122/58 95 Room Air 07/31 1100 95 Nasal 2.0L Cannula 07/31 1057 99 104/66 07/31 0800 95 Nasal 1.0L Cannula 07/31 0637 98.9 89 20 124/70 91 Nasal Cannula 07/31 0000 97 Nasal 2.0L Cannula 07/30 2135 95 102/78 07/30 2113 97.0 95 20 102/78 97 Nasal 2.0L Cannula 07/30 1829 96 Nasal 2.0L Cannula 07/30 1600 Nasal 2.0L Cannula 07/30 1439 96.5 88 20 140/90 99 Room Air Intake & Output 07/31 1600 07/31 0800 07/31 0000 07/30 1600 07/30 0800 07/30 0000 Intake Total 100 100 100 120 Output Total 300 800 100 225 625 Balance -300 100 -700 0 -225 -505 Intake, Oral 100 100 100 120 Number 2 3 0 Bowel Movements Output, Urine 300 800 100 225 625 Current Medications: Current Medications Sig/Fatemeh Start time Last Medication Dose Route Stop Time Status Admin Acetaminophen 1,000 MG Q6H PRN 07/28 0945 AC N/A 1 UNIT IV Carvedilol 12.5 MG BID 07/29 2200 AC 07/31 PO 1057 Cilostazol 100 MG BID 07/23 2200 AC 07/31 PO 1057 Docusate Sodium 100 MG BID 07/29 1000 AC 07/31 PO 1058 Heparin Sodium 5,000 UNIT Q8 07/25 2200 AC 07/31 (Porcine) SC 1313 Insulin Aspart 0 TIDAC/HS 07/27 1200 AC 07/31 SC 1312 Insulin Detemir 10 UNITS DAILY 07/29 1000 AC 07/31 SC 1057 Losartan Potassium 25 MG DAILY 07/24 1000 AC 07/31 PO 1057 Meclizine HCl 12.5 MG TID 07/23 1600 AC 07/31 PO 1058 Metoclopramide HCl 20 MG BID 07/23 2200 AC 07/31 PO 1054 Omeprazole 40 MG DAILY AC 07/31 0745 AC 07/31 PO 1054 Oxycodone/ 1 TAB Q4P PRN 07/23 1730 DC 07/29 Acetaminophen PO 2116 Pantoprazole Sodium 40 MG DAILY 07/24 2215 DC 07/30 IV 0937 Patient Medication 1 ED ONE ONE 07/31 1345 AR Teaching ED 07/31 1346 Phosphate 250 MG PC AND AT BEDTIME 07/25 0900 AC 07/30 PO 2134 Polyethylene Glycol 17 GM DAILY 07/29 1000 DC 07/30 PO 0937 Tamsulosin HCl 0.4 MG DAILY 07/23 1445 AC 07/31 PO 1054 Results Last 48 Hrs of Labs/Mics: Laboratory Tests 07/31/16 0600: Anion Gap 10, Estimated GFR 30 L, BUN/Creatinine Ratio 10.0, Iron 40 L, TIBC Pending, Ferritin Pending, Vitamin B12 Pending, Folate Pending, TSH Pending, Free T4 Pending, CBC w Diff NO MAN DIFF REQ, RBC 2.83 L, MCV 94.7 H, MCH 31.0, RDW 14.3, MPV 8.4, Gran % 60.7, Lymphocytes % 22.6, Monocytes % 12.6 H, Eosinophils % 3.8, Basophils % 0.3, Absolute Granulocytes 4.6, Absolute Lymphocytes 1.7, Absolute Monocytes 1.0 H, Absolute Eosinophils 0.3, Absolute Basophils 0, PUBS MCHC 32.7 L 07/30/16 0748: Anion Gap 10, Estimated GFR 32 L, BUN/Creatinine Ratio 10.5, CBC w Diff NO MAN DIFF REQ, RBC 3.01 L, MCV 94.1 H, MCH 31.5 H, RDW 14.5, MPV 8.6, Gran % 62.0, Lymphocytes % 19.9 L, Monocytes % 14.7 H, Eosinophils % 3.1, Basophils % 0.3, Absolute Granulocytes 5.1, Absolute Lymphocytes 1.6, Absolute Monocytes 1.2 H, Absolute Eosinophils 0.3, Absolute Basophils 0, PUBS MCHC 33.5 Assessment/Plan Assessment/Plan Assessment- 1. Persistent postoperative tachycardia 2. Postop status post left open inguinal hernia repair 3. CKD creatinine 2.0 at present which is his baseline 4. Gross hematuria; likely secondary to [place] trauma 5. History of hypertension 6. History of diabetes Recommendations: -The patient remains mildly tachycardic at rest. -Please check TSH and thyroid profile -In view of the patient's persistent anemia with mildly elevated MCV, please check iron studies, B12, folate, etc. and start supplementation of any deficiencies if needed. -Continue current carvedilol dose for now Continue telemetry? Yes
[2016-07-31 22:53] VITALS: BP 102/60
[2016-08-01 06:40] VITALS: BP 136/80
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
--- NOTE | 2016-08-01 07:49 | PN- General Surgery ---
Subjective Subjective: NAEO. Patient c/o increased coughing and sputum production but no fevers. Pain controlled. Tolerating diet without n/v. +flatus, +BM. OOB and ambulating with assist. Denies CP/SOB. Objective Vital Signs and I&Os Vital Signs Date Time Temp Pulse Resp B/P Pulse O2 O2 Flow FiO2 Ox Delivery Rate 08/01 0640 98.1 90 20 136/80 92 Nasal Cannula 08/01 0000 95 Nasal 1.0L Cannula 07/31 2253 99.3 99 20 102/60 95 07/31 2121 99 102/60 07/31 1701 Nasal 2.0L Cannula 07/31 1414 97.5 96 20 122/58 95 Room Air 07/31 1100 95 Nasal 2.0L Cannula 07/31 1057 99 104/66 07/31 0800 95 Nasal 1.0L Cannula Intake & Output 08/01 0800 08/01 0000 07/31 1600 07/31 0800 07/31 0000 07/30 1600 Intake Total 500 480 480 100 100 100 Output Total 850 500 800 100 Balance -350 480 -20 100 -700 0 Intake, Oral 500 480 480 100 100 100 Number 0 2 3 0 Bowel Movements Output, Urine 850 500 800 100 Physical Exam: General: NAD, comfortable, A&Ox3 Chest: NRD, Good air movement, CTAB. Heart S1S2 normal. Abdomen: soft, nontender, nondistended. +Bowel sounds x4 quadrants. Left groin incision intact with steri strips without signs of infection. : Scrotal incision healing well without drainage or signs of infection. Ext: No calve swelling/TTP, neurovascularly intact bilateral lower extremities Current Medications: Current Medications Sig/Fatemeh Start time Last Medication Dose Route Stop Time Status Admin Acetaminophen 1,000 MG Q6H PRN 07/28 0945 AC N/A 1 UNIT IV Carvedilol 12.5 MG BID 07/290 AC 07/31 PO 2120 Cilostazol 100 MG BID 07/23 220 AC 07/31 PO 2118 Docusate Sodium 100 MG BID 07/29 1000 AC 07/31 PO 2118 Guaifenesin 10 ML Q4P PRN 08/01 0745 AC PO Heparin Sodium 5,000 UNIT Q8 07/25 2200 AC 08/01 (Porcine) SC 0524 Insulin Aspart 0 TIDAC/HS 07/27 1200 AC 07/31 SC 1728 Insulin Detemir 10 UNITS DAILY 07/29 1000 AC 07/31 SC 1057 Losartan Potassium 25 MG DAILY 07/24 1000 AC 07/31 PO 1057 Meclizine HCl 12.5 MG TID 07/23 1600 AC 07/31 PO 2119 Metoclopramide HCl 20 MG BID 07/23 2200 AC 07/31 PO 2119 Omeprazole 40 MG DAILY AC 07/31 0745 AC 08/01 PO 0525 Patient Medication 1 ED ONE ONE 07/31 1345 DC Teaching ED 07/31 1346 Phosphate 250 MG PC AND AT BEDTIME 07/25 0900 DC 07/30 PO 2134 Tamsulosin HCl 0.4 MG DAILY 07/23 1445 AC 07/31 PO 1054 Results Last 48 Hours of Labs: Laboratory Tests 07/31 07/31 UNK 0600 Chemistry Sodium (137 - 145 mmol/L) 144 Potassium (3.5 - 5.1 mmol/L) 4.5 Chloride (98 - 107 mmol/L) 111 H Carbon Dioxide (22 - 30 mmol/L) 23 Anion Gap (5 - 16) 10 BUN (9 - 20 mg/dL) 21 H Creatinine (0.7 - 1.2 mg/dL) 2.1 H Estimated GFR (>60 ml/min) 30 L BUN/Creatinine Ratio (7 - 25 %) 10.0 Iron (49 - 181 ug/dL) 40 L TIBC (261 - 462 ug/dL) 225 L Ferritin (17.9 - 464 ng/mL) 554.0 H Vitamin B12 (239 - 931 pg/mL) 833 Folate (2.76 - 20.0 ng/mL) > 20.0 H TSH (0.270 - 4.200 uIU/mL) 0.638 Free T4 (0.85 - 1.93 ng/dL) 1.88 Hematology CBC w Diff NO MAN DIFF REQ WBC (4.8 - 10.8 /CUMM) 7.7 RBC (4.70 - 6.10 /CUMM) 2.83 L Hgb (14.0 - 18.0 G/DL) 8.8 L Hct (42 - 52 %) 26.8 L MCV (80.0 - 94.0 FL) 94.7 H MCH (27.0 - 31.0 PG) 31.0 RDW (11.5 - 14.5 %) 14.3 Plt Count (130 - 400 /CUMM) 209 MPV (7.4 - 10.4 FL) 8.4 Gran % (42.2 - 75.2 %) 60.7 Lymphocytes % (20.5 - 51.1 %) 22.6 Monocytes % (1.7 - 9.3 %) 12.6 H Eosinophils % (0 - 5 %) 3.8 Basophils % (0.0 - 2.0 %) 0.3 Absolute Granulocytes (1.4 - 6.5 /CUMM) 4.6 Absolute Lymphocytes (1.2 - 3.4 /CUMM) 1.7 Absolute Monocytes (0.10 - 0.60 /CUMM) 1.0 H Absolute Eosinophils (0.0 - 0.7 /CUMM) 0.3 Absolute Basophils (0.0 - 0.2 /CUMM) 0 PUBS MCHC (33.0 - 37.0 G/DL) 32.7 L Urines Urinalysis LIGHT H Urine Color (YEL,AMB,STR) STRAW Urine Clarity (CLEAR) HAZY H Urine pH (5.0 - 8.0) 6.0 Ur Specific [place] (1.001 - 1.035) 1.020 Urine Protein (NEG,<30 MG/DL) TRACE H Urine Ketones (NEG) NEG Urine Nitrite (NEG) NEG Urine Bilirubin (NEG) NEG Urine Urobilinogen (0.1 - 1.0 EU/dl) 1.0 Ur Leukocyte Esterase (NEG) NEG Ur Microscopic SEDIMENT EXAMINED Urine RBC (0 - 5 /HPF) 1-3 Urine WBC (0 - 2 /HPF) 5-10 H Urine Bacteria (NEG/NONE) MOD H Urine Hemoglobin (NEG) TRACE-INTACT H Urine Glucose (N MG/DL) NEG 07/30 0748 Chemistry Sodium (137 - 145 mmol/L) 146 H Potassium (3.5 - 5.1 mmol/L) 4.9 Chloride (98 - 107 mmol/L) 113 H Carbon Dioxide (22 - 30 mmol/L) 23 Anion Gap (5 - 16) 10 BUN (9 - 20 mg/dL) 21 H Creatinine (0.7 - 1.2 mg/dL) 2.0 H Estimated GFR (>60 ml/min) 32 L BUN/Creatinine Ratio (7 - 25 %) 10.5 Hematology CBC w Diff NO MAN DIFF REQ WBC (4.8 - 10.8 /CUMM) 8.3 RBC (4.70 - 6.10 /CUMM) 3.01 L Hgb (14.0 - 18.0 G/DL) 9.5 L Hct (42 - 52 %) 28.3 L MCV (80.0 - 94.0 FL) 94.1 H MCH (27.0 - 31.0 PG) 31.5 H RDW (11.5 - 14.5 %) 14.5 Plt Count (130 - 400 /CUMM) 170 MPV (7.4 - 10.4 FL) 8.6 Gran % (42.2 - 75.2 %) 62.0 Lymphocytes % (20.5 - 51.1 %) 19.9 L Monocytes % (1.7 - 9.3 %) 14.7 H Eosinophils % (0 - 5 %) 3.1 Basophils % (0.0 - 2.0 %) 0.3 Absolute Granulocytes (1.4 - 6.5 /CUMM) 5.1 Absolute Lymphocytes (1.2 - 3.4 /CUMM) 1.6 Absolute Monocytes (0.10 - 0.60 /CUMM) 1.2 H Absolute Eosinophils (0.0 - 0.7 /CUMM) 0.3 Absolute Basophils (0.0 - 0.2 /CUMM) 0 PUBS MCHC (33.0 - 37.0 G/DL) 33.5 Assessment/Plan Assessment/Plan 89yo M POD#9 s/p open left inguinal hernia repair. AVSS, patient progressing. - Pain control - continue diet - I/O's - f/u labs - OOB and ambulate with PT - f/u medicine recs - continue pletal - DC to rehab today - will d/w attending Core Measures/Miscellaneous Venous Thromboembolism VTE Risk Factors: Age > 40, Surgery VTE Contraindications: No Contraindications VTE Diagnosis: No VTE Type: NONE VTE Confirmed by (Test): NONE Beta Maciej Is Beta Maciej a Home Med? Yes Antibiotics Is Patient on Antibiotics? No
[2016-08-01 08:31] LABS: ABSOLUTE BASOPHIL COUNT 0 /CUMM (0.0-0.2); ABSOLUTE EOSINOPHIL COUNT 0.3 /CUMM (0.0-0.7); BASOPHIL % 0.2 % (0.0-2.0); EOSINOPHIL % 3.6 % (0-5); GRANULOCYTE % 60.1 % (42.2-75.2); HEMATOCRIT 26.6 % (42-52); MEAN CORPUSCULAR HGB 31.1 PG (27.0-31.0); MEAN CORPUSCULAR HGB CONC 32.8 G/DL (33.0-37.0); MEAN PLATELET VOLUME 8.1 FL (7.4-10.4); PLATELET COUNT 231 /CUMM (130-400); RBC DISTRIBUTION WIDTH 14.4 % (11.5-14.5); WHITE BLOOD CELL COUNT 8.4 /CUMM (4.8-10.8)
[2016-08-01] MEDS ORDERED: COREG12.5 M1 PO (10:45)
[2016-08-01] MEDS ORDERED: LEVEMIR100 UNIT/1 SQ (11:42)
[2016-08-01] MEDS ORDERED: NOVOLIN R100 UNIT/1 SC (11:46)
--- NOTE | 2016-08-01 13:01 | Surgical Discharge Summary ---
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 Home Who Do You Live With? Significant Other Services at Home: None What is Your Primary Language? Nauruan ETOH Use: denies use Review of Systems: see preoperative H&P Hospital Course Course Attending Physician: REGINALD US,OMID Whitt Primary Care Physician: RANJITH KHAN Hospital Course: Mr. Harrison was admitted to the hospital on July 23, 2016 following an Open Left Inguial Hernia Repair. After tolerating the procedure, he was transferred to a general surgical floor. Post operative course included tachycardia, hypoxemia, hypoglycemia, delerium, and hematuria. Tachycardia/Hypoxemia: On July 24, 2016 he had an episode of coffee-ground emesis followed by tachycardia. He underwent a VQ scan which yielded a very low probability of a Pulmonary Embolism. He also underwent an Echocardiogram which yielded the following results: CONCLUSIONS 1. Mild aortic sclerosis is present with no valvular stenosis or insufficiency. 2. Mitral leaflet thickening is present with minimal to mild mitral insufficiency and mild left atrial enlargement. 3. There is no pericardial fluid detected. 4. The left ventricular chamber size is normal with mild concentric hypertrophy and a normal ejection fraction. Mild diastolic dysfunction is present. 5. Minimal to mild tricuspid and pulmonic insufficiency are present with no evidence of pulmonary hypertension. 6. A followup examination is suggested when the patient's heart rate is slower. He was evaluated and treated by Dr. Stephen while here in the hospital. Carvedilol was started at 6.25 mg bid, his tachycardia persisted and the dose was doubled, his tachycardia then resolved on 07/30/2016 and he maintained sinus rhythm at a rate around 90 for the remainder of his hospital stay. Hypoglycemia: On 07/25/2016 he was noted to have episodes of hypoglycemia. An endocrinology consult was called for comanagement of his type 2 DM and hypoglycemia in the setting of renal insufficiency. Recommendations were made to manage patient with a combination of Novolog and Detimir and the patient was able to maintain a normal glycemic level for the remainder of his hospital stay. Delerium: On 07/29/2016 he was noted to have an altered mental status and neck discomfort. Neck and head CT was done and the following impression was noted: IMPRESSION: 1. No acute intracranial disease. 2. No soft tissue mass in the neck. 3. Thyroid nodules. 4. Cervical spondylosis, severe. He had been medicated with Lyrica and morphine prior to onset and upon discontinuation of those medications, he was found to have a return of his baseline mental status. Hematuria: On 07/24/2016 the patient was noted to have gross hematuria following a traumatic rinaldi catheter insertion, he was evaluated and treated by a urologist and a complete and spontaneous resolution of the hematuria was noted, no difficulty voiding for the remainder of his hospital stay. On 08/01/2016 he was deemed appropriate for discharge to short term rehab facility. Allergies: Coded Allergies: No Known Allergies (07/19/16) Disposition Summary Disposition Principal Diagnosis: Incarcerated left inguinal hernia Additional Diagnosis: none Discharge Disposition: SNF Discharge Instructions General Discharge Information Code Status: Full Code Patient's Diet: Diabetic, advance as tolerated Patient's Activity: As desired Follow-Up Instructions/Appts: Follow up with Dr. Kauffman in 2 weeks from date of surgery. Follow up with Dr. Stephen, cardiology, in two weeks. Follow up with Dr. Mcgovern (endocrine) in two weeks. Medications at Discharge Discharge Medications: Stop taking the following medications: Insulin-Lantus (Lantus) 100 UNIT/ML VIAL Inject into fatty tissue DAILY Carvedilol (Carvedilol) 6.25 MG TABLET ORAL TWICE DAILY Continue taking these medications: Losartan Potassium (Cozaar) 25 MG TABLET 1 Tablet ORAL DAILY Comments: DOCUMENTED PER CMR DURING PRE-SX INTERVIEW Cilostazol (Cilostazol) 100 MG TABLET 1 Tablet ORAL TWICE DAILY Comments: DOCUMENTED PER CMR DURING PRE-SX INTERVIEW Metoclopramide HCl (Metoclopramide HCl) 10 MG TABLET 20 Milligram ORAL TWICE DAILY Comments: DOCUMENTED PER CMR DURING PRE-SX INTERVIEW Folic Acid (Folic Acid) 1 MG TABLET 1 Tablet ORAL DAILY Comments: DOCUMENTED PER CMR DURING PRE-SX INTERVIEW Meclizine HCl (Meclizine HCl) 12.5 MG TABLET 1 Tablet ORAL THREE TIMES DAILY Comments: DOCUMENTED PER CMR DURING PRE-SX INTERVIEW Tamsulosin HCl (Flomax) 0.4 MG CAP.ER.24H 1 Capsule ORAL DAILY Comments: DOCUMENTED PER CMR DURING PRE-SX INTERVIEW Saxagliptin (Onglyza) 5 MG TABLET 1 Tablet ORAL DAILY Comments: DOCUMENTED PER CMR DURING PRE-SX INTERVIEW Start taking the following new medications: Carvedilol (Coreg) 12.5 MG TABLET 1 Tablet ORAL TWICE DAILY Qty = 60 No Refills Insulin Detemir (Levemir) 100 UNIT/ML VIAL 10 Units SUB-Q DAILY Qty = 30 No Refills Insulin Regular (Novolin R Inj) 1,000 UNITS/10 ML NUBIA 0 Units Inject into fatty tissue SEE INSTRUCTIONS Qty = 30 No Refills Instructions: SEE COMMENTS FOR SLIDING SCALE OF NOVOLOG COVERAGE BEFORE MEALS AND AT BEDTIME Comments: <80 MG/DL:NO COVERAGE 80-100 MG/DL: NO COVERAGE 101-120 MG/DL: NO COVERAGE 121-150 MG/DL: 2 UNITS 151-200 MG/DL: 3 UNITS 201-250 MG/DL: 4 UNITS 251-300 MG/DL: 5 UNITS 301-350 MG/DL: 6 UNITS 351-400 MG/DL: 7 UNITS >400 MG/DL: 8 UNITS
--- NOTE | 2016-08-01 13:23 | PN- Cardiology ---
Subjective Subjective: Stable Objective Vital Signs and I&Os Vital Signs Date Time Temp Pulse Resp B/P Pulse O2 O2 Flow FiO2 Ox Delivery Rate 08/01 0640 98.1 90 20 136/80 92 Nasal Cannula 08/01 0000 95 Nasal 1.0L Cannula 07/31 2253 99.3 99 20 102/60 95 07/31 2121 99 102/60 07/31 1701 Nasal 2.0L Cannula 07/31 1414 97.5 96 20 122/58 95 Room Air Intake & Output 08/01 1600 08/01 0800 08/01 0000 07/31 1600 07/31 0800 07/31 0000 Intake Total 500 480 480 100 100 Output Total 850 500 800 Balance -350 480 -20 100 -700 Intake, Oral 500 480 480 100 100 Number 0 2 3 Bowel Movements Output, Urine 850 500 800 Current Medications: Current Medications Sig/Fatemeh Start time Last Medication Dose Route Stop Time Status Admin Acetaminophen 1,000 MG Q6H PRN 07/28 0945 AC N/A 1 UNIT IV Carvedilol 12.5 MG BID 07/29 2200 AC 08/01 PO 1102 Cilostazol 100 MG BID 07/23 2200 AC 08/01 PO 1101 Docusate Sodium 100 MG BID 07/29 1000 AC 08/01 PO 1102 Guaifenesin 10 ML Q4P PRN 08/01 0745 AC 08/01 PO 1102 Heparin Sodium 5,000 UNIT Q8 07/25 2200 AC 08/01 (Porcine) SC 0524 Insulin Aspart 0 TIDAC/HS 07/27 1200 AC 08/01 SC 1208 Insulin Detemir 10 UNITS DAILY 07/29 1000 AC 08/01 SC 1102 Losartan Potassium 25 MG DAILY 07/24 1000 AC 08/01 PO 1101 Meclizine HCl 12.5 MG TID 07/23 1600 AC 08/01 PO 1102 Metoclopramide HCl 20 MG BID 07/23 2200 AC 08/01 PO 1101 Omeprazole 40 MG DAILY AC 07/31 0745 AC 08/01 PO 0525 Patient Medication 1 ED ONE ONE 07/31 1345 DC Teaching ED 07/31 1346 Phosphate 250 MG PC AND AT BEDTIME 07/25 0900 DC 07/30 PO 2134 Tamsulosin HCl 0.4 MG DAILY 07/23 1445 AC 08/01 PO 1101 Results Last 48 Hrs of Labs/Mics: Laboratory Tests 08/01/16 0750: CBC w Diff NO MAN DIFF REQ, RBC 2.80 L, MCV 95.0 H, MCH 31.1 H, RDW 14.4, MPV 8.1, Gran % 60.1, Lymphocytes % 23.7, Monocytes % 12.4 H, Eosinophils % 3.6, Basophils % 0.2, Absolute Granulocytes 5.0, Absolute Lymphocytes 2.0, Absolute Monocytes 1.0 H, Absolute Eosinophils 0.3, Absolute Basophils 0, PUBS MCHC 32.8 L 07/31/16 1000: Urinalysis LIGHT H, Urine Color STRAW, Urine Clarity HAZY H, Urine pH 6.0, Ur Specific [place] 1.020, Urine Protein TRACE H, Urine Ketones NEG, Urine Nitrite NEG, Urine Bilirubin NEG, Urine Urobilinogen 1.0, Ur Leukocyte Esterase NEG, Ur Microscopic SEDIMENT EXAMINED, Urine RBC 1-3, Urine WBC 5-10 H, Urine Bacteria MOD H, Urine Hemoglobin TRACE-INTACT H, Urine Glucose NEG 07/31/16 0600: Anion Gap 10, Estimated GFR 30 L, BUN/Creatinine Ratio 10.0, Iron 40 L, TIBC 225 L, Ferritin 554.0 H, Vitamin B12 833, Folate > 20.0 H, TSH 0.638, Free T4 1.88, CBC w Diff NO MAN DIFF REQ, RBC 2.83 L, MCV 94.7 H, MCH 31.0, RDW 14.3, MPV 8.4, Gran % 60.7, Lymphocytes % 22.6, Monocytes % 12.6 H, Eosinophils % 3.8 , Basophils % 0.3, Absolute Granulocytes 4.6, Absolute Lymphocytes 1.7, Absolute Monocytes 1.0 H, Absolute Eosinophils 0.3, Absolute Basophils 0, PUBS MCHC 32.7 L Assessment/Plan Assessment/Plan Assessment- 1. Persistent postoperative tachycardia 2. Postop status post left open inguinal hernia repair 3. CKD creatinine 2.0 at present which is his baseline 4. Gross hematuria; likely secondary to [place] trauma 5. History of hypertension 6. History of diabetes Recommendations: -The patient remains clinically unchanged. -Intermittent mild confusion -Follow-up blood work as requested is all within reasonably normal limits. -In view of the patient's persistent mild anemia, consider addition of low-dose iron supplementation. -Otherwise continue current cardiac medications for now. Continue telemetry? No
--- NOTE | 2016-08-01 13:26 | PN- Diabetes ---
Assessment/Plan Assessment: 89-year-old male with a past medical history of hypertension, GERD, diabetes mellitus, peripheral vascular disease, CKD Stage III, BPH who was admitted to [facility] on 07/23/2016 for an elective open repair of the left inguinal hernia. He is on Levemir 10 units daily, Novolog coverage before meals and Novolog coverage at bedtime. His FSGs were 141, 257, 305, 218 and 113. Plan: will continue the current insulin regimen; monitor FSGs; will follow. Subjective Subjective: He appears more alert this morning. As per nurse, he has been eating well. Objective Last 24 Hrs of Vital Signs/I&O Vital Signs Date Time Temp Pulse Resp B/P Pulse O2 O2 Flow FiO2 Ox Delivery Rate 08/01 0640 98.1 90 20 136/80 92 Nasal Cannula 08/01 0000 95 Nasal 1.0L Cannula 07/31 2253 99.3 99 20 102/60 95 07/31 2121 99 102/60 07/31 1701 Nasal 2.0L Cannula 07/31 1414 97.5 96 20 122/58 95 Room Air Intake & Output 08/01 1600 08/01 0800 08/01 0000 Intake Total 500 480 Output Total 850 Balance -350 480 Intake, Oral 500 480 Number 0 Bowel Movements Output, Urine 850 Findings Pertinent Lab/Bret Results: Laboratory Tests 08/01 0750 Hematology CBC w Diff NO MAN DIFF REQ WBC (4.8 - 10.8 /CUMM) 8.4 RBC (4.70 - 6.10 /CUMM) 2.80 L Hgb (14.0 - 18.0 G/DL) 8.7 L Hct (42 - 52 %) 26.6 L MCV (80.0 - 94.0 FL) 95.0 H MCH (27.0 - 31.0 PG) 31.1 H RDW (11.5 - 14.5 %) 14.4 Plt Count (130 - 400 /CUMM) 231 MPV (7.4 - 10.4 FL) 8.1 Gran % (42.2 - 75.2 %) 60.1 Lymphocytes % (20.5 - 51.1 %) 23.7 Monocytes % (1.7 - 9.3 %) 12.4 H Eosinophils % (0 - 5 %) 3.6 Basophils % (0.0 - 2.0 %) 0.2 Absolute Granulocytes (1.4 - 6.5 /CUMM) 5.0 Absolute Lymphocytes (1.2 - 3.4 /CUMM) 2.0 Absolute Monocytes (0.10 - 0.60 /CUMM) 1.0 H Absolute Eosinophils (0.0 - 0.7 /CUMM) 0.3 Absolute Basophils (0.0 - 0.2 /CUMM) 0 PUBS MCHC (33.0 - 37.0 G/DL) 32.8 L
[2016-08-01 14:31] VITALS: BP 138/74
[2016-08-01 16:31] VITALS: BP 138/74
== END 2016-08-01 17:59 | DRG 982 ==
LOC: ENRESERVTM → ENRESERVDT → STS 02:21 → PACUH 12:55 → 2NA 15:15 → PACUH 15:15 → EDBEDREQ 15:42 → 2NA 16:54 → ENPENDDIS 07-25 09:12 → 2NA 07-25 09:12
PROVIDERS: Nurse Practitioner; Physician Assistant; Physician Assistant Surgical; ADMIT Surgery
PROC: 0YU60JZ Supplement Left Inguinal Region with Synthetic Substitute, Open Approach (ICD-10-PCS; principal; 2016-07-23)
PROC: 0DN80ZZ Release Small Intestine, Open Approach (ICD-10-PCS; principal; 2016-07-23)
PROC: 30233N1 Transfusion of Nonautologous Red Blood Cells into Peripheral Vein, Percutaneous Approach (ICD-10-PCS; 2016-07-27)
DX: J96.01 Acute respiratory failure with hypoxia (principal); K40.30 Unilateral inguinal hernia, with obstruction, without gangrene, not specified as recurrent; E11.649 Type 2 diabetes mellitus with hypoglycemia without coma; E11.22 Type 2 diabetes mellitus with diabetic chronic kidney disease; D69.6 Thrombocytopenia, unspecified; N18.3 Chronic kidney disease, stage 3 (moderate); R31.0 Gross hematuria; E86.0 Dehydration; I73.9 Peripheral vascular disease, unspecified; E83.39 Other disorders of phosphorus metabolism; Z79.4 Long term (current) use of insulin; R00.0 Tachycardia, unspecified; K21.9 Gastro-esophageal reflux disease without esophagitis; I12.9 Hypertensive chronic kidney disease with stage 1 through stage 4 chronic kidney disease, or unspecified chronic kidney disease; N40.0 Benign prostatic hyperplasia without lower urinary tract symptoms; R41.0 Disorientation, unspecified
CPT/HCPCS: 2NASP; 36415; 74020; 76775; 78582; 81001; 82436; 86920; 93005; 93010; 93306; 94799; 97110-GO; 97116-GO; 97162-GP; 97530-GO; A9540; A9558; C1781; J0131; J0690; J1644; J1815; J1885; J2405; J7060; P9016